=== PATIENT | female | born 1965 | race Caucasian/White ===

== ENCOUNTER → 2016-06-10 | Outpatient (CLI) | payer OTHER | LOC: RAD 08:47 | DX: R19.5 Other fecal abnormalities (principal); R10.11 Right upper quadrant pain | CPT/HCPCS: 74249 ==

== ENCOUNTER → 2016-07-09 | Outpatient (CLI) | payer OTHER ==
[2016-07-09 10:13] LABS: ABSOLUTE BASOPHILS # (AUTO) 0.1 10^3/uL (0.0-0.2); ABSOLUTE EOSINOPHILS # (AUTO) 0.1 10^3/uL (0.0-0.6); ABSOLUTE LYMPHOCYTES (AUTO) 2.8 10^3/uL (0.5-4.7); ABSOLUTE MONOCYTES (AUTO) 0.5 10^3/uL (0.1-1.4); ABSOLUTE NEUT (AUTO) 5.5 10^3/uL (1.7-8.2); BASOPHILS % (AUTO) 0.7 % (0-2); HEMOGLOBIN 14.4 g/dL (12.0-15.5); HGB HCT DIFFERENCE 0.2; LYMPHOCYTES % (AUTO) 31.4 % (13-45); MEAN CORPUSCULAR HEMOGLOBIN 29.2 pg (27.0-33.4); MEAN CORPUSCULAR HGB CONC 33.6 g/dL (32.0-36.0); MEAN CORPUSCULAR VOLUME 87 fl (80-97); MONOCYTES % (AUTO) 5.7 % (3-13); RED BLOOD COUNT 4.94 10^6/uL (3.72-5.28); RED CELL DISTRIBUTION WIDTH 13.3 % (11.5-14.0); SEGMENTED NEUTROPHILS % (AUTO) 61.2 % (42-78)
[2016-07-09 10:36] LABS: ALANINE AMINOTRANSFERASE 29 U/L (9-52); ALKALINE PHOSPHATASE 91 U/L (38-126); ANION GAP 10 (5-19); ASPARTATE AMINO TRANSFERASE 17 U/L (14-36); BILIRUBIN,TOTAL 0.6 mg/dL (0.2-1.3); BLOOD UREA NITROGEN 10 mg/dL (7-20); CALCIUM 9.9 mg/dL (8.4-10.2); CARBON DIOXIDE 31 mmol/L (22-30); CHLORIDE 99 mmol/L (98-107); CHOLESTEROL 153.79 mg/dL (0-200); Direct HDL 52 mg/dL (>40); GLUCOSE 222 mg/dL (75-110); POTASSIUM 4.9 mmol/L (3.6-5.0); SODIUM 139.9 mmol/L (137-145); TOTAL PROTEIN 7.2 g/dL (6.3-8.2); TRIGLYCERIDES 152 mg/dL (<150)
[2016-07-09 11:03] LABS: DIRECT LDL 89 mg/dL (<100)
[2016-07-09 11:13] LABS: VLDL CHOLESTEROL 30.4 mg/dL (10-31)
== END ==
LOC: CCC 08:28
DX: E11.9 Type 2 diabetes mellitus without complications (principal); I10 Essential (primary) hypertension; E03.9 Hypothyroidism, unspecified
CPT/HCPCS: 36415; 80053; 80061; 83036; 84443; 85025

== ENCOUNTER 2016-12-31 16:55 | Emergency (ER) | payer OTHER ==
--- NOTE | 2016-12-31 18:24 | ER Document Report ---
HPI - HPI Patient complains to provider of: right low back pain, numbness right leg Onset: Other - months Pain Level: 4 Context: 51 yo female wants to know why she has numbness to right leg for months associated with right low back pain . Worse today when leg gave out and fell backwards onto her bed. No saddle anesthesia. uses walker since right knee replacement and incomplete physical therpay 2014. No new symptoms today. PCP: [facility] [place]. Thinks it got worse today because she walked 1/2 [place] to the [place] yesterday. Associated Symptoms: None Exacerbated by: Walking Relieved by: Denies Similar symptoms previously: Yes Recently seen / treated by doctor: No - ROS ROS below otherwise negative: Yes Systems Reviewed and Negative: Yes All other systems reviewed and negative - REPRODUCTIVE Reproductive: DENIES: : - DERM Skin Color: Normal, [place] Past Medical History - General Information source: Patient - Social History Smoking Status: Unknown if Ever Smoked Frequency of alcohol use: None Drug Abuse: None Lives with: Family Family History: Arthritis, CAD, CVA, DM, Hyperlipidemia, Hypertension, Malignancy, Thyroid Disfunction - Past Medical History Cardiac Medical History: Reports: Hx Coronary Artery Disease, Hx Hypercholesterolemia, Hx Hypertension Pulmonary Medical History: Reports: Hx Asthma - no meds/inhalers, last ED visit > 5 years ago, Hx Bronchitis, Hx Pneumonia - denies hospitalization Endocrine Medical History: Reports: Hx Diabetes Mellitus Type 2, Hx Hypothyroidism GI Medical History: Reports: Hx Gastroesophageal Reflux Disease Musculoskeltal Medical History: Reports Hx Arthritis, Reports Hx Fibromyalgia - Dx'ed approx 15 years ago, Reports Hx Musculoskeletal Deformity Psychiatric Medical History: Reports: Hx Anxiety, Hx Attention Deficit Hyperactivity Disorder, Hx Depression Traumatic Medical History: Reports: Hx Fractures Past Surgical History: Reports: Hx Section - x 2, Hx Cholecystectomy - open , Hx Oral Surgery, Hx Orthopedic Surgery - right knee replacement, Hx Tubal Ligation - Immunizations Immunizations up to date: Yes Hx Diphtheria, Pertussis, Tetanus Vaccination: Yes Vertical Provider Document - CONSTITUTIONAL Agree With Documented VS: Yes Exam Limitations: No Limitations General Appearance: No Apparent Distress Notes: gait stable with walker, externally rotated right foot (chornic per pt) - INFECTION CONTROL TRAVEL OUTSIDE OF THE [place] IN LAST 30 DAYS: No - HEENT HEENT: Normocephalic - NECK Neck: Supple - RESPIRATORY Respiratory: Breath Sounds Normal, No Respiratory Distress O2 Sat by Pulse Oximetry: 96 - CARDIOVASCULAR Cardiovascular: Regular Rate, Regular Rhythm - GI/ABDOMEN Gastrointestinal: Abdomen Soft, Abdomen Non-Tender Notes: able to feel normal touch to perineum - MUSCULOSKELETAL/EXTREMETIES Musculoskeletal/Extremeties: MAEW, FROM, Tender - right SI joint area into right buttocks - NEURO Level of Consciousness: Awake, Alert, Appropriate Motor/Sensory: No Motor Deficit, No Sensory Deficit - DERM Integumentary: Warm, Dry, No Rash Course - Re-evaluation Re-evalutation: 12/31/16 19:51 L spine is negative, degenerative changes to lower thoracic back. 12/31/16 19:54 - Vital Signs Vital signs: Temp Pulse Resp BP Pulse Ox 98.3 F 108 H 16 117/78 96 12/31/16 17:04 12/31/16 17:04 12/31/16 17:04 12/31/16 17:04 12/31/16 17:04 Discharge - Discharge Clinical Impression: Chronic right sacroiliac joint pain Sciatica Qualifiers: Laterality: right Qualified Code(s): M54.31 - Sciatica, right side Condition: Good Disposition: HOME, SELF-CARE Instructions: Anti-Inflammatory Medication ([facility]), Acetaminophen, Low Back Pain ([facility]), Sciatica ([facility]) Additional Instructions: you may need further imaging of the lumbar spine see [facility] for follow up call and schedule appointment with orthopedic doctor to er if worse Please complete the patient satisfaction survey if you get one, and return it.. If you do not receive a survey, then you can go to the [facility] website, [email or web address] and place your comments about your very good care. Thank you very much. It was a pleasure being your medical provider today. Prescriptions: Ibuprofen [Motrin 800 mg Tablet] 800 mg PO Q8HP PRN #30 tablet PRN Reason: Referrals: KEREN SAHNI MD [ACTIVE STAFF] - Follow up as needed
--- NOTE | 2016-12-31 19:31 | RADIOLOGY REPORT (SQ) ---
EXAM DESCRIPTION: L SPINE WHOLE COMPLETED DATE/TIME: 12/31/2016 7:18 pm REASON FOR STUDY: pain right SI joint, parathesia COMPARISON: None. NUMBER OF VIEWS: Five views including obliques. TECHNIQUE: AP, lateral, oblique, and sacral radiographic images acquired of the lumbar spine. LIMITATIONS: None. FINDINGS: MINERALIZATION: Normal. SEGMENTATION: Normal. No transitional anatomy. ALIGNMENT: Normal. VERTEBRAE: Maintained height. No fracture or worrisome bone lesion. DISCS: Preserved height. No significant osteophytes or end plate irregularity. POSTERIOR ELEMENTS: Pedicles and facets are intact. No pars defect or posterior arch defects. HARDWARE: None in the spine. PARASPINAL SOFT TISSUES: Normal. PELVIS: Intact as visualized. No fractures or worrisome bone lesions. SI joints intact. OTHER: Degenerative changes are identified in the lower thoracic spine. IMPRESSION: No significant findings in the lumbar spine. Degenerative changes are identified in the lower thoracic spine. TECHNICAL DOCUMENTATION: JOB ID: [id number] [employer]- All Rights Reserved
[2016-12-31] MEDS ORDERED: IBUPROFEN 800 MG TABLET PO ONE (19:50)
[2016-12-31] MEDS ORDERED: ACETAMINOPHEN 325 MG TABLET PO ONE (19:50)
[2016-12-31 20:20] VITALS: BP 126/79
== END 2016-12-31 20:18 | disposition home or self-care (01) ==
LOC: ER 16:55
DX: M53.3 Sacrococcygeal disorders, not elsewhere classified (principal); G89.29 Other chronic pain; M47.9 Spondylosis, unspecified; M54.41 Lumbago with sciatica, right side; R20.0 Anesthesia of skin; I25.10 Atherosclerotic heart disease of native coronary artery without angina pectoris; I10 Essential (primary) hypertension; J45.909 Unspecified asthma, uncomplicated; E11.9 Type 2 diabetes mellitus without complications; Z96.651 Presence of right artificial knee joint
CPT/HCPCS: 72110; 99283

== ENCOUNTER → 2017-01-14 | Outpatient (CLI) | payer OTHER ==
[2017-01-14 10:48] LABS: ANION GAP 9 (5-19); BLOOD UREA NITROGEN 18 mg/dL (7-20); CALCIUM 9.6 mg/dL (8.4-10.2); CARBON DIOXIDE 28 mmol/L (22-30); CHLORIDE 100 mmol/L (98-107); CREATININE RESULT 0.51 mg/dL (0.52-1.25); GLUCOSE 279 mg/dL (75-110); POTASSIUM 4.5 mmol/L (3.6-5.0)
== END ==
LOC: CCC 09:34
DX: E11.8 Type 2 diabetes mellitus with unspecified complications (principal)
CPT/HCPCS: 36415; 80048; 83036

== ENCOUNTER → 2017-01-22 | Outpatient (CLI) | payer OTHER ==
--- NOTE | 2017-01-22 10:32 | RADIOLOGY REPORT (SQ) ---
EXAM DESCRIPTION: MRI LUMBAR SPINE WITHOUT COMPLETED DATE/TIME: 01/22/2017 9:16 am REASON FOR STUDY: LOW BACK PAIN/RADICULOPATHY, LUMBAR REGION M54.5 LOW BACK PAIN M54.16 RADICULOPA THY, LUMBAR REGION COMPARISON: CT abdomen and pelvis 01/05/2015 Lumbar spine plain films 12/31/2016 TECHNIQUE: Sagittal and Axial imaging includes T1, T2, STIR and gradient echo sequences. Coronal T2/ HASTE imaging. LIMITATIONS: None. FINDINGS: VISUALIZED UPPER ABDOMEN: Limited evaluation. No acute or suspicious findings suggested. SEGMENTATION: No transitional anatomy. The lowest well-developed disc space is labeled L5-S1. ALIGNMENT: Anatomic. VERTEBRAE: Intact. BONE MARROW: Normal. No marrow replacement or reactive changes. DISC SIGNAL: Decreased T2 weighted intervertebral disc signal with disc space loss of height at T12-L 1 POSTERIOR ELEMENTS: Generally intact. No pars defect evident. HARDWARE: None in the spine. CORD AND CONUS: Normal in size and signal intensity. Conus at the mid L1 level. SOFT TISSUES: No aortic aneurysm seen. No bulky retroperitoneal adenopathy or mass. No paraspinal mas s or fluid. T10-11: At the upper edge of the field of view. No posterior disc bulging. Moderate bilateral face t and ligament hypertrophy. Mild bilateral foraminal narrowing. T11-12: No posterior disc bulging. Moderate bilateral facet hypertrophy. No central or foraminal e ncroachment. T12-L1: Broad diffuse posterior disc bulge and bony spurring left greater than right partly effaces the leftward ventral thecal sac, and abuts the leftward ventral cord without cord normal intrinsic co rd signal. Mild bilateral facet hypertrophy and ligamentum flavum thickening. No right foraminal na rrowing. Mild proximal left foraminal narrowing without exiting T12 nerve root impingement. L1-L2: No significant spinal stenosis or exit foraminal stenosis. Very mild bilateral facet hypertro phy. L2-L3: No significant spinal stenosis or exit foraminal stenosis. Mild bilateral facet hypertrophy. L3-L4: No significant spinal stenosis or exit foraminal stenosis. Mild bilateral facet hypertrophy. L4-L5: No significant spinal stenosis or exit foraminal stenosis. Mild posterior disc bulging, mild bilateral facet hypertrophy. L5-S1: No significant spinal stenosis or exit foraminal stenosis. Moderate bilateral facet hypertrop hy SACRUM: Visualized upper sacrum intact. OTHER: No other significant findings. IMPRESSION: Broad diffuse posterior disc bulge and bony spurring left greater than right at T12-L1, mild central canal narrowing, mild left foraminal narrowing. TECHNICAL DOCUMENTATION: JOB ID: [id number] [employer]- All Rights Reserved
== END ==
LOC: RAD 08:15
DX: M54.5 Low back pain (principal); M54.16 Radiculopathy, lumbar region
CPT/HCPCS: 72148

== ENCOUNTER 2017-06-07 09:57 | Emergency (ER) | payer SELFPAY ==
--- NOTE | 2017-06-07 10:34 | ER Document Report ---
ED Medical Screen (RME) - General Chief Complaint: Fall Injury Stated Complaint: FALL/BODY PAIN Time Seen by Provider: 06/07/17 10:22 Mode of Arrival: Wheelchair Information source: Patient Notes: Patient presents complaining of dizziness since yesterday that she describes as feeling off balance. Patient states that this dizziness is caused her to fall 3 times in her house today and once outside on the ice. Patient states that she does have a headache and does report hitting her head one time when she fell to the occipital area. Patient complains of right-sided headache pain. Patient additionally complains of bilateral knee pain and left shoulder pain and left ankle pain. Patient additionally reports cough for the past week that her family attributes to her continued smoking. Patient denies any chest pain or fever. TRAVEL OUTSIDE OF THE [place] IN LAST 30 DAYS: No - Related Data Allergies/Adverse Reactions: No Known Allergies Allergy (Verified 06/07/17 09:58) Past Medical History - Past Medical History Cardiac Medical History: Reports: Hx Coronary Artery Disease, Hx Hypercholesterolemia, Hx Hypertension Denies: Hx Atrial Fibrillation, Hx Congestive Heart Failure, Hx Heart Attack , Hx Peripheral Vascular Disease, Hx Pulmonary Embolism, Hx Heart Murmur Pulmonary Medical History: Reports: Hx Asthma - no meds/inhalers, last ED visit > 5 years ago, Hx Bronchitis, Hx Pneumonia - denies hospitalization Denies: Hx COPD, Hx Respiratory Failure, Hx Sleep Apnea, Hx Tuberculosis Endocrine Medical History: Reports: Hx Diabetes Mellitus Type 2, Hx Hypothyroidism. Denies: Hx Graves' Disease, Hx Hyperthyroidism Renal/ Medical History: Denies: Hx End Stage Renal Disease, Hx Kidney Stones, Hx Peritoneal Dialysis Malignancy Medical History: Denies: Hx Lung Cancer GI Medical History: Reports: Hx Gastroesophageal Reflux Disease. Denies: Hx Crohn's Disease, Hx Hiatal Hernia, Hx Irritable Bowel, Hx Liver Failure, Hx Pancreatitis, Hx Ulcer Musculoskeltal Medical History: Reports Hx Arthritis, Reports Hx Fibromyalgia - Dx'ed approx 15 years ago, Denies Hx Muscular Dystrophy, Reports Hx Musculoskeletal Deformity Skin Medical History: Denies Hx MRSA Psychiatric Medical History: Reports: Hx Anxiety, Hx Attention Deficit Hyperactivity Disorder, Hx Depression Denies: Hx Bipolar Disorder, Hx Post Traumatic Stress Disorder, Hx Schizophrenia Traumatic Medical History: Reports: Hx Fractures Past Surgical History: Reports: Hx Section - x 2, Hx Cholecystectomy - open 1980's, Hx Oral Surgery, Hx Orthopedic Surgery - right knee replacement, Hx Tubal Ligation. Denies: Hx Appendectomy, Hx Bowel Surgery, Hx Colostomy, Hx Coronary Artery Bypass Graft, Hx Gastric Bypass Surgery, Hx Herniorrhaphy, Hx Hysterectomy, Hx Mastectomy, Hx Pacemaker, Hx Tonsillectomy - Immunizations Immunizations up to date: Yes Hx Diphtheria, Pertussis, Tetanus Vaccination: Yes Physical Exam - Vital signs Vitals: Temp Pulse Resp BP Pulse Ox 97.9 F 98 14 147/72 H 97 06/07/17 10:06 06/07/17 10:06/07/17 10:06/07/17 10:06/07/17 10:06 - Respiratory Respiratory status: No respiratory distress Breath sounds: Nonproductive cough, Rhonchi Chest palpation: Normal - Cardiovascular Rhythm: Regular Heart sounds: S1 appreciated, S2 appreciated Course - Vital Signs Vital signs: Temp Pulse Resp BP Pulse Ox 97.9 F 98 14 147/72 H 97 06/07/17 10:06/07/17 10:06/07/17 10:06/07/17 10:06/07/17 10:06
--- NOTE | 2017-06-07 11:06 | RADIOLOGY REPORT (SQ) ---
EXAM DESCRIPTION: CT HEAD WITHOUT COMPLETED DATE/TIME: 06/07/2017 10:54 am REASON FOR STUDY: dizzy, fall, MAXWELL COMPARISON: 03/12/2015 TECHNIQUE: Axial images acquired through the brain without intravenous contrast. Images reviewed wi th bone, brain and subdural windows. Images stored on PACS. All CT scanners at this facility use dose modulation, iterative reconstruction, and/or weight based d osing when appropriate to reduce radiation dose to as low as reasonably achievable (ALARA). [facility]: Dose Right [facility]: CareDose [facility]: Dose Right [facility]: Teradose 4D [facility]: EasyLink RADIATION DOSE: CT Rad equipment meets quality standard of care and radiation dose reduction techniq ues were employed. CTDIvol: 64.6 mGy. DLP: 1292 mGy-cm. mGy. LIMITATIONS: None. FINDINGS: VENTRICLES: Normal size and contour. CEREBRUM: No masses. No hemorrhage. No midline shift. No evidence for acute infarction. Normal gra y/white matter differentiation. Stable chronic lacunar infarct right basal ganglia. No additional a reas of low density in the white matter. CEREBELLUM: No masses. No hemorrhage. No alteration of density. No evidence for acute infarction. EXTRAAXIAL SPACES: No fluid collections. No masses. ORBITS AND GLOBE: No intra- or extraconal masses. Normal contour of globe without masses. CALVARIUM: No fracture. PARANASAL SINUSES: Stable tiny mucous retention cyst left maxillary sinus. No fluid or additional mu cosal thickening. SOFT TISSUES: No mass or hematoma. OTHER: No other significant finding. IMPRESSION: NO ACUTE INTRACRANIAL PROCESS. NO SIGNIFICANT CHANGE PRIOR STUDY. EVIDENCE OF ACUTE STROKE: NO. COMMENT: Quality ID # [id number]: Final reports with documentation of one or more dose reduction techniques (e.g., Automated exposure control, adjustment of the mA and/or kV according to patient size, use of iterative reconstruction technique) TECHNICAL DOCUMENTATION: JOB ID: [id number] [employer]- All Rights Reserved
--- NOTE | 2017-06-07 11:48 | RADIOLOGY REPORT (SQ) ---
EXAM DESCRIPTION: CHEST PA/LAT COMPLETED DATE/TIME: 06/07/2017 11:35 am REASON FOR STUDY: cough, dizzy COMPARISON: 03/27/2016 EXAM PARAMETERS: NUMBER OF VIEWS: two views TECHNIQUE: Digital Frontal and Lateral radiographic views of the chest acquired. RADIATION DOSE: NA LIMITATIONS: none FINDINGS: LUNGS AND PLEURA: Subtle patchy left lower lobe airspace disease. Lungs and pleural space s otherwise clear. MEDIASTINUM AND HILAR STRUCTURES: No masses or contour abnormalities. HEART AND VASCULAR STRUCTURES: Heart normal size. No evidence for failure. BONES: No acute findings. HARDWARE: None in the chest. OTHER: No other significant finding. IMPRESSION: SUBTLE PATCHY LEFT LOWER LOBE AIRSPACE DISEASE MAY REPRESENT DEVELOPING PNEUMONIA. CARLOS MMEND FOLLOWUP RADIOGRAPHS 4 TO 6 WEEKS TO ENSURE RESOLUTION. TECHNICAL DOCUMENTATION: JOB ID: [id number] [employer]- All Rights Reserved
--- NOTE | 2017-06-07 11:49 | RADIOLOGY REPORT (SQ) ---
EXAM DESCRIPTION: KNEE BILATERAL 1-2 VIEWS COMPLETED DATE/TIME: 06/07/2017 11:35 am REASON FOR STUDY: fall COMPARISON: None. NUMBER OF VIEWS: Two views. TECHNIQUE: AP, lateral, and both oblique radiographic images acquired of the right and left knee. LIMITATIONS: None. FINDINGS: MINERALIZATION: Normal. BONES: No acute fracture or dislocation. No worrisome bone lesions. JOINT: Status post total knee arthroplasty on the right without hardware complication. Mild to moder ate tricompartmental osteoarthritis on the left. SOFT TISSUES: Vascular calcifications. No soft tissue swelling. No radio-opaque foreign body. OTHER: No other significant finding. IMPRESSION: NO FRACTURE OR HARDWARE COMPLICATION IDENTIFIED. CHRONIC CHANGES ABOVE. TECHNICAL DOCUMENTATION: JOB ID: [id number] [employer]- All Rights Reserved
--- NOTE | 2017-06-07 11:49 | RADIOLOGY REPORT (SQ) ---
EXAM DESCRIPTION: SHOULDER LEFT 2 OR MORE VIEWS COMPLETED DATE/TIME: 06/07/2017 11:35 am REASON FOR STUDY: fall COMPARISON: None. NUMBER OF VIEWS: Three views. TECHNIQUE: Internal rotation, external rotation, and Y view images acquired of the left shoulder. LIMITATIONS: None. FINDINGS: MINERALIZATION: Normal. BONES: No acute fracture or dislocation. No worrisome bone lesions. JOINTS: No dislocation. VISUALIZED LUNGS AND RIBS: No pneumothorax. No rib fracture. SOFT TISSUES: No radiopaque foreign body. OTHER: No other significant finding. IMPRESSION: NO RADIOGRAPHIC EVIDENCE OF ACUTE INJURY. TECHNICAL DOCUMENTATION: JOB ID: [id number] [employer]- All Rights Reserved
--- NOTE | 2017-06-07 11:50 | RADIOLOGY REPORT (SQ) ---
EXAM DESCRIPTION: ANKLE LEFT COMPLETE COMPLETED DATE/TIME: 06/07/2017 11:35 am REASON FOR STUDY: fall COMPARISON: 02/17/2018 NUMBER OF VIEWS: Three views. TECHNIQUE: AP, lateral, and oblique radiographic images acquired of the left ankle. LIMITATIONS: None. FINDINGS: MINERALIZATION: Normal. BONES: No acute fracture or dislocation. No worrisome bone lesions. Chronic posttraumatic change me dial ankle. Calcaneal spurring. JOINTS: Osteoarthritis without significant joint effusion. SOFT TISSUES: Vascular calcification No soft tissue swelling. No foreign body. OTHER: No other significant finding. IMPRESSION: NO RADIOGRAPHIC EVIDENCE OF ACUTE INJURY. CHRONIC CHANGES ABOVE. TECHNICAL DOCUMENTATION: JOB ID: [id number] [email or web address]- All Rights Reserved
--- NOTE | 2017-06-07 11:55 | EKG REPORT ---
SEVERITY:- NORMAL ECG - SINUS RHYTHM : Confirmed by: Kyle Vallejo 07-Jun-2017 11:53:34
[2017-06-07 12:11] LABS: AMORPHOUS SEDIMENT,URINE TRACE /HPF; APPEARANCE,URINE CLEAR; BILIRUBIN,URINE NEGATIVE (NEGATIVE); COLOR,URINE YELLOW; GLUCOSE, URINE >=500 mg/dL (NEGATIVE); KETONES,URINE NEGATIVE (NEGATIVE); LEUKOCYTE ESTERASE,URINE NEGATIVE (NEGATIVE); NITRITE,URINE NEGATIVE (NEGATIVE); PROTEIN,URINE 100 mg/dL (NEGATIVE); URINE SPECIFIC GRAVITY 1.005; UROBILINOGEN,URINE NEGATIVE mg/dL (<2.0)
[2017-06-07 12:13] LABS: ABSOLUTE BASOPHILS # (AUTO) 0.1 10^3/uL (0.0-0.2); ABSOLUTE EOSINOPHILS # (AUTO) 0.1 10^3/uL (0.0-0.6); ABSOLUTE LYMPHOCYTES (AUTO) 1.8 10^3/uL (0.5-4.7); ABSOLUTE MONOCYTES (AUTO) 0.8 10^3/uL (0.1-1.4); ABSOLUTE NEUT (AUTO) 11.4 10^3/uL (1.7-8.2); BASOPHILS % (AUTO) 0.6 % (0-2); EOSINOPHILS % (AUTO) 0.5 % (0-6); HEMATOCRIT 39.8 % (36.0-47.0); HEMOGLOBIN 13.3 g/dL (12.0-15.5); LYMPHOCYTES % (AUTO) 12.7 % (13-45); MEAN CORPUSCULAR HEMOGLOBIN 28.3 pg (27.0-33.4); MEAN CORPUSCULAR HGB CONC 33.4 g/dL (32.0-36.0); MEAN CORPUSCULAR VOLUME 85 fl (80-97); MONOCYTES % (AUTO) 5.5 % (3-13); PLATELET COUNT 425 10^3/uL (150-450); RED CELL DISTRIBUTION WIDTH 14.4 % (11.5-14.0); SEGMENTED NEUTROPHILS % (AUTO) 80.7 % (42-78); TOTAL CELLS COUNTED % (AUTO) 100 %; WHITE BLOOD COUNT 14.1 10^3/uL (4.0-10.5)
[2017-06-07 12:31] LABS: ALANINE AMINOTRANSFERASE 27 U/L (9-52); ALBUMIN 4.4 g/dL (3.5-5.0); ALKALINE PHOSPHATASE 104 U/L (38-126); ANION GAP 11 (5-19); ASPARTATE AMINO TRANSFERASE 27 U/L (14-36); BILIRUBIN,DIRECT 0.2 mg/dL (0.0-0.4); BILIRUBIN,TOTAL 0.4 mg/dL (0.2-1.3); BLOOD UREA NITROGEN 11 mg/dL (7-20); CALCIUM 9.8 mg/dL (8.4-10.2); CARBON DIOXIDE 29 mmol/L (22-30); CHLORIDE 98 mmol/L (98-107); GLUCOSE 213 mg/dL (75-110); POTASSIUM 4.2 mmol/L (3.6-5.0); SODIUM 137.5 mmol/L (137-145); TOTAL PROTEIN 6.9 g/dL (6.3-8.2)
[2017-06-07] MEDS ORDERED: AZITHROMYCIN 250 MG TABLET PO ONE (12:46)
--- NOTE | 2017-06-07 12:46 | ER Document Report ---
ED General - General Chief Complaint: Fall Injury Stated Complaint: FALL/BODY PAIN Time Seen by Provider: 06/07/17 10:22 Mode of Arrival: Wheelchair Information source: Patient Notes: 52-year-old female complains of multiple falls. Patient notes she falls often, patient has been seen here and at other clinics extensively for these falls. Patient currently denies any weakness or numbness notes she feels lightheaded dizzy. Patient does admit that she been coughing for approximately 2 weeks with greenish cobb sputum. TRAVEL OUTSIDE OF THE [place] IN LAST 30 DAYS: No - HPI Onset: Just prior to arrival Onset/Duration: Sudden Quality of pain: Achy Severity: Mild Pain Level: 1 Associated symptoms: Body/muscle aches, Productive cough, Other - Dizziness Exacerbated by: Movement, Coughing Relieved by: Denies Similar symptoms previously: Yes Recently seen / treated by doctor: Yes - Related Data Allergies/Adverse Reactions: No Known Allergies Allergy (Verified 06/07/17 09:58) Past Medical History - General Information source: Patient - Social History Smoking Status: Current Every Day Smoker Cigarette use (# per day): Yes Chew tobacco use (# tins/day): No Smoking Education Provided: No Frequency of alcohol use: None Drug Abuse: None Family History: Arthritis, CAD, CVA, DM, Hyperlipidemia, Hypertension, Malignancy, Thyroid Disfunction Patient has suicidal ideation: No Patient has homicidal ideation: No - Past Medical History Cardiac Medical History: Reports: Hx Coronary Artery Disease, Hx Hypercholesterolemia, Hx Hypertension Denies: Hx Atrial Fibrillation, Hx Congestive Heart Failure, Hx Heart Attack , Hx Peripheral Vascular Disease, Hx Pulmonary Embolism, Hx Heart Murmur Pulmonary Medical History: Reports: Hx Asthma - no meds/inhalers, last ED visit > 5 years ago, Hx Bronchitis, Hx Pneumonia - denies hospitalization Denies: Hx COPD, Hx Respiratory Failure, Hx Sleep Apnea, Hx Tuberculosis Endocrine Medical History: Reports: Hx Diabetes Mellitus Type 2, Hx Hypothyroidism. Denies: Hx Graves' Disease, Hx Hyperthyroidism Renal/ Medical History: Denies: Hx End Stage Renal Disease, Hx Kidney Stones, Hx Peritoneal Dialysis Malignancy Medical History: Denies: Hx Lung Cancer GI Medical History: Reports: Hx Gastroesophageal Reflux Disease. Denies: Hx Crohn's Disease, Hx Hiatal Hernia, Hx Irritable Bowel, Hx Liver Failure, Hx Pancreatitis, Hx Ulcer Musculoskeltal Medical History: Reports Hx Arthritis, Reports Hx Fibromyalgia - Dx'ed approx 15 years ago, Denies Hx Muscular Dystrophy, Reports Hx Musculoskeletal Deformity Skin Medical History: Denies Hx MRSA Psychiatric Medical History: Reports: Hx Anxiety, Hx Attention Deficit Hyperactivity Disorder, Hx Depression Denies: Hx Bipolar Disorder, Hx Post Traumatic Stress Disorder, Hx Schizophrenia Traumatic Medical History: Reports: Hx Fractures Past Surgical History: Reports: Hx Section - x 2, Hx Cholecystectomy - open , Hx Oral Surgery, Hx Orthopedic Surgery - right knee replacement, Hx Tubal Ligation. Denies: Hx Appendectomy, Hx Bowel Surgery, Hx Colostomy, Hx Coronary Artery Bypass Graft, Hx Gastric Bypass Surgery, Hx Herniorrhaphy, Hx Hysterectomy, Hx Mastectomy, Hx Pacemaker, Hx Tonsillectomy - Immunizations Immunizations up to date: Yes Hx Diphtheria, Pertussis, Tetanus Vaccination: Yes Review of Systems - Review of Systems Notes: REVIEW OF SYSTEMS: CONSTITUTIONAL : Denies fever, chills, or sweats. Denies recent illness. EENT: Denies eye, ear, throat, or mouth pain or symptoms. Denies nasal or sinus congestion or discharge. Denies throat, tongue, or mouth swelling or difficulty swallowing. CARDIOVASCULAR: Denies chest pain. Denies palpitations or racing or irregular heart beat. Denies ankle edema. RESPIRATORY: Admits to productive cough GASTROINTESTINAL: Denies abdominal pain or distention. Denies nausea, vomiting , or diarrhea. Denies blood in vomitus, stools, or per rectum. Denies black, tarry stools. Denies constipation. GENITOURINARY: Denies difficulty urinating, painful urination, burning, frequency, blood in urine, or discharge. FEMALE GENITOURINARY: Denies vaginal bleeding, heavy or abnormal periods, irregular periods. Denies vaginal discharge or odor. MUSCULOSKELETAL: Admits to shoulder ankle pain SKIN: Denies rash, lesions or sores. HEMATOLOGIC : Denies easy bruising or bleeding. LYMPHATIC: Denies swollen, enlarged glands. NEUROLOGICAL: Admits to dizziness PSYCHIATRIC: Denies anxiety or stress. Denies depression, suicidal ideation, or homicidal ideation. ALL OTHER SYSTEMS REVIEWED AND NEGATIVE. PHYSICAL EXAMINATION: GENERAL: Well-appearing, well-nourished and in no acute distress. HEAD: Atraumatic, normocephalic. EYES: Pupils equal round and reactive to light, extraocular movements intact, conjunctiva are normal. ENT: Nares patent, oropharynx clear without exudates. Moist mucous membranes. NECK: Normal range of motion, supple without lymphadenopathy LUNGS: Breath sounds clear to auscultation bilaterally and equal. No wheezes rales or rhonchi. HEART: Regular rate and rhythm without murmurs ABDOMEN: Soft, nontender, nondistended abdomen. No guarding, no rebound. No masses appreciated. Female : deferred Musculoskeletal: Normal range of motion, no pitting or edema. No cyanosis. NEUROLOGICAL: Cranial nerves grossly intact. Normal speech, normal gait. Normal sensory, motor exams patient is able to ambulate with no difficulty generalized pain noted PSYCH: Normal mood, normal affect. SKIN: Warm, Dry, normal turgor, no rashes or lesions noted. Dictation was performed using [employer] voice recognition software Physical Exam - Vital signs Vitals: Temp Pulse Resp BP Pulse Ox 97.9 F 98 14 147/72 H 97 06/07/17 10:06 06/07/17 10:06 06/07/17 10:06 06/07/17 10:06 06/07/17 10:06 Course - Re-evaluation Re-evalutation: 06/07/17 16:25 52-year-old female presents with complaints of dizziness falls, patient's presentation is extremely benign. Extensive workup has been performed by the mid-level who initially saw the patient, possible pneumonia as noted on x-ray, given productivity of cough I will treat her for this which may be the cause of her dizziness however it is noted that the patient does fall quite often and that the same complaints of ankle pain body aches After performing a Medical Screening Examination, I estimate there is LOW risk for ACUTE CORONARY SYNDROME, PULMONARY EMBOLI, RESPIRATORY FAILURE, SEPSIS OR MENINGITIS, thus I consider the discharge disposition reasonable. I have reevaluated this patient multiple times and no significant life threatening changes are noted. The patient and I have discussed the diagnosis and risks, and we agree with discharging home with close follow-up. We also discussed returning to the Emergency Department immediately if new or worsening symptoms occur. We have discussed the symptoms which are most concerning (e.g., changing or worsening pain, trouble swallowing or breathing, neck stiffness, fever) that necessitate immediate return. - Vital Signs Vital signs: Temp Pulse Resp BP Pulse Ox 97.9 F 98 19 138/74 H 100 06/07/17 10:06 06/07/17 10:06 06/07/17 13:01 06/07/17 13:01 06/07/17 13:01 - Laboratory Result Diagrams: 06/07/17 11:45 06/07/17 11:45 Laboratory results interpreted by me: 06/07/17 06/07/17 06/07/17 11:45 11:45 11:45 WBC 14.1 H RDW 14.4 H Seg Neutrophils % 80.7 H Lymphocytes % 12.7 L Absolute Neutrophils 11.4 H Glucose 213 H Urine Protein 100 H Urine Glucose (UA) >=500 H Urine Blood SMALL H - Diagnostic Test Radiology reviewed: Image reviewed, Reports reviewed - Pneumonia Discharge - Discharge Clinical Impression: Dizziness Pneumonia Qualifiers: Pneumonia type: due to unspecified organism Laterality: left Lung location: lower lobe of lung Qualified Code(s): J18.1 - Lobar pneumonia, unspecified organism Ankle pain Qualifiers: Chronicity: acute Laterality: left Qualified Code(s): M25.572 - Pain in left ankle and joints of left foot Condition: Stable Disposition: HOME, SELF-CARE Instructions: Dizziness ([facility]), Pneumonia ([facility]) Additional Instructions: Follow up with your physician tomorrow for further care or return to the ED IMMEDIATELY if symptoms worsen or new concerns occur. If you cannot afford to follow up with your primary care physician a list of low cost clinics have been provided at the end of your discharge papers as well. Prescriptions: Azithromycin 250 mg PO ASDIR PRN #6 tablet PRN Reason:
[2017-06-07] MEDS ORDERED: NAPROXEN 250 MG TABLET PO ONE (12:47)
[2017-06-07 13:08] VITALS: BP 138/74
== END 2017-06-07 13:18 | disposition home or self-care (01) ==
LOC: ER 09:57
DX: J18.1 Lobar pneumonia, unspecified organism (principal); M25.572 Pain in left ankle and joints of left foot; M79.1 Myalgia; W19.XXXA Unspecified fall, initial encounter; F17.210 Nicotine dependence, cigarettes, uncomplicated; Z91.81 History of falling; I25.10 Atherosclerotic heart disease of native coronary artery without angina pectoris; E78.00 Pure hypercholesterolemia, unspecified; I10 Essential (primary) hypertension; E11.9 Type 2 diabetes mellitus without complications; E03.9 Hypothyroidism, unspecified; Z90.49 Acquired absence of other specified parts of digestive tract; Z96.651 Presence of right artificial knee joint; Z98.51 Tubal ligation status
CPT/HCPCS: 36415; 70450; 71046; 80053; 81001; 85025; 93005; 93010; 99284

== ENCOUNTER → 2017-06-24 | Outpatient (CLI) | payer SELFPAY ==
--- NOTE | 2017-06-24 11:05 | RADIOLOGY REPORT (SQ) ---
EXAM DESCRIPTION: TOE RIGHT COMPLETED DATE/TIME: 06/24/2017 10:29 am REASON FOR STUDY: S90.931A UNSP SUPERFICIAL INJURY OF RIGHT GREAT TOE, INIT ENCNTR COMPARISON: None. NUMBER OF VIEWS: Three views right forefoot. LIMITATIONS: None. FINDINGS: Pronounced osteopenia. Transverse nondisplaced fracture through the distal aspect of the proximal phalanx great toe. No other gross fracture. No dislocation or subluxation. OTHER: No other significant finding. IMPRESSION: Osteopenic. Nondisplaced proximal phalanx great toe fracture. TECHNICAL DOCUMENTATION: JOB ID: [id number]
== END ==
LOC: RAD 10:03
PROVIDERS: ATTEND Family Medicine
DX: S92.514A Nondisplaced fracture of proximal phalanx of right lesser toe(s), initial encounter for closed fracture (principal); X58.XXXA Exposure to other specified factors, initial encounter

== ENCOUNTER 2017-11-26 12:24 | Emergency (ER) | payer SELFPAY ==
[2017-11-26 12:31] VITALS: BP 153/96
[2017-11-26] MEDS ORDERED: KETOROLAC TROMETHAMINE 60 MG/2 ML SDV IM ONE (13:25)
--- NOTE | 2017-11-26 13:30 | ER Document Report ---
HPI - HPI Pain Level: 4 Context: Patient is a 52-year-old female complaining of pain to her upper back and shoulders, and a cough 3 days. Patient denies any paresthesias, fever, trauma Associated Symptoms: None Exacerbated by: Movement Relieved by: Denies Similar symptoms previously: Yes Recently seen / treated by doctor: No - RESPIRATORY Respiratory: REPORTS: Coughing - REPRODUCTIVE Reproductive: DENIES: : - MUSCULOSKELETAL Musculoskeletal: REPORTS: Extremity pain Past Medical History - General Information source: Patient - Social History Smoking Status: Current Every Day Smoker Chew tobacco use (# tins/day): No Frequency of alcohol use: None Drug Abuse: None Lives with: Family Family History: Arthritis, CAD, CVA, DM, Hyperlipidemia, Hypertension, Malignancy, Thyroid Disfunction Patient has suicidal ideation: No Patient has homicidal ideation: No - Past Medical History Cardiac Medical History: Reports: Hx Coronary Artery Disease, Hx Hypercholesterolemia, Hx Hypertension Denies: Hx Atrial Fibrillation, Hx Congestive Heart Failure, Hx Heart Attack , Hx Peripheral Vascular Disease, Hx Pulmonary Embolism, Hx Heart Murmur Pulmonary Medical History: Reports: Hx Asthma - no meds/inhalers, last ED visit > 5 years ago, Hx Bronchitis, Hx Pneumonia - denies hospitalization Denies: Hx COPD, Hx Respiratory Failure, Hx Sleep Apnea, Hx Tuberculosis Endocrine Medical History: Reports: Hx Diabetes Mellitus Type 2, Hx Hypothyroidism. Denies: Hx Graves' Disease, Hx Hyperthyroidism Renal/ Medical History: Denies: Hx End Stage Renal Disease, Hx Kidney Stones, Hx Peritoneal Dialysis Malignancy Medical History: Denies: Hx Lung Cancer GI Medical History: Reports: Hx Gastroesophageal Reflux Disease. Denies: Hx Crohn's Disease, Hx Hiatal Hernia, Hx Irritable Bowel, Hx Liver Failure, Hx Pancreatitis, Hx Ulcer Musculoskeltal Medical History: Reports Hx Arthritis, Reports Hx Fibromyalgia - Dx'ed approx 15 years ago, Denies Hx Muscular Dystrophy, Reports Hx Musculoskeletal Deformity Skin Medical History: Denies Hx MRSA Psychiatric Medical History: Reports: Hx Anxiety, Hx Attention Deficit Hyperactivity Disorder, Hx Depression Denies: Hx Bipolar Disorder, Hx Post Traumatic Stress Disorder, Hx Schizophrenia Traumatic Medical History: Reports: Hx Fractures Past Surgical History: Reports: Hx Section - x 2, Hx Cholecystectomy - open , Hx Oral Surgery, Hx Orthopedic Surgery - right knee replacement, Hx Tubal Ligation. Denies: Hx Appendectomy, Hx Bowel Surgery, Hx Colostomy, Hx Coronary Artery Bypass Graft, Hx Gastric Bypass Surgery, Hx Herniorrhaphy, Hx Hysterectomy, Hx Mastectomy, Hx Pacemaker, Hx Tonsillectomy - Immunizations Immunizations up to date: Yes Hx Diphtheria, Pertussis, Tetanus Vaccination: Yes Vertical Provider Document - CONSTITUTIONAL Agree With Documented VS: Yes Exam Limitations: No Limitations - INFECTION CONTROL TRAVEL OUTSIDE OF THE [place] IN LAST 30 DAYS: No - HEENT HEENT: Atraumatic, PERRLA - NECK Neck: Normal Inspection, Supple - RESPIRATORY Respiratory: Breath Sounds Normal, No Respiratory Distress - CARDIOVASCULAR Cardiovascular: Regular Rate, Regular Rhythm - BACK Back: Abnormal Inspection - Positive thoracic paraspinal and trapezius tenderness. No vertebral tenderness - NEURO Level of Consciousness: Awake, Alert, Appropriate Course - Vital Signs Vital signs: Temp Pulse Resp BP Pulse Ox 98.6 F 97 20 153/96 H 97 11/26/17 12:29 11/26/17 12:29 11/26/17 12:29 11/26/17 12:29 11/26/17 12:29 Discharge - Discharge Clinical Impression: Upper back pain, Cough Condition: Stable Disposition: HOME, SELF-CARE Instructions: Toradol Injection ([facility]), Tessalon Perles ([facility]), Ibuprofen ( General) ([facility]), Muscle Relaxers ([facility]) Additional Instructions: Please take medications as prescribed Follow-up with your primary care if symptoms persist Prescriptions: Benzonatate [Tessalon Perles 100 mg Capsule] 200 mg PO Q8HP PRN #40 capsule PRN Reason: Ibuprofen [Motrin 800 Mg Tablet] 800 mg PO Q6H #20 tablet Methocarbamol [Robaxin 500 Mg Tablet] 1,000 mg PO Q6 #30 tablet
== END 2017-11-26 13:44 | disposition home or self-care (01) ==
LOC: ER 12:24
DX: M54.6 Pain in thoracic spine (principal); R05 Cough; M25.511 Pain in right shoulder; M25.512 Pain in left shoulder; F17.200 Nicotine dependence, unspecified, uncomplicated; I25.10 Atherosclerotic heart disease of native coronary artery without angina pectoris; I10 Essential (primary) hypertension; J45.909 Unspecified asthma, uncomplicated; E11.9 Type 2 diabetes mellitus without complications
CPT/HCPCS: 99283; J1885

== ENCOUNTER 2017-12-26 15:40 | Emergency (ER) | payer SELFPAY ==
[2017-12-26] MEDS ORDERED: ASPIRIN 81 MG TABLET, CHEWABLE PO ONE (16:17)
[2017-12-26] MEDS ORDERED: IPRATROPIUM/ALBUTEROL 0.5-2.5 MG/3 ML AMPUL NEB ONE (16:18)
--- NOTE | 2017-12-26 16:19 | ER Document Report ---
ED Medical Screen (RME) - General Chief Complaint: Chest Pain Stated Complaint: CHEST PAINS/ BACK PAINS Time Seen by Provider: 12/26/17 16:05 Notes: 51 years old female presents today with 2 day history of left chest wall pain and left-sided headache, wheezing and coughing on and off. Denies any left arm numbness nausea vomiting palpitation or diaphoresis. TRAVEL OUTSIDE OF THE [place] IN LAST 30 DAYS: No - Related Data Allergies/Adverse Reactions: No Known Allergies Allergy (Verified 11/26/17 12:25) Past Medical History - Past Medical History Cardiac Medical History: Reports: Hx Coronary Artery Disease, Hx Hypercholesterolemia, Hx Hypertension Denies: Hx Atrial Fibrillation, Hx Congestive Heart Failure, Hx Heart Attack , Hx Peripheral Vascular Disease, Hx Pulmonary Embolism, Hx Heart Murmur Pulmonary Medical History: Reports: Hx Asthma - no meds/inhalers, last ED visit > 5 years ago, Hx Bronchitis, Hx Pneumonia - denies hospitalization Denies: Hx COPD, Hx Respiratory Failure, Hx Sleep Apnea, Hx Tuberculosis Endocrine Medical History: Reports: Hx Diabetes Mellitus Type 2, Hx Hypothyroidism. Denies: Hx Graves' Disease, Hx Hyperthyroidism Renal/ Medical History: Denies: Hx End Stage Renal Disease, Hx Kidney Stones, Hx Peritoneal Dialysis Malignancy Medical History: Denies: Hx Lung Cancer GI Medical History: Reports: Hx Gastroesophageal Reflux Disease. Denies: Hx Crohn's Disease, Hx Hiatal Hernia, Hx Irritable Bowel, Hx Liver Failure, Hx Pancreatitis, Hx Ulcer Musculoskeltal Medical History: Reports Hx Arthritis, Reports Hx Fibromyalgia - Dx'ed approx 15 years ago, Denies Hx Muscular Dystrophy, Reports Hx Musculoskeletal Deformity Skin Medical History: Denies Hx MRSA Psychiatric Medical History: Reports: Hx Anxiety, Hx Attention Deficit Hyperactivity Disorder, Hx Depression Denies: Hx Bipolar Disorder, Hx Post Traumatic Stress Disorder, Hx Schizophrenia Traumatic Medical History: Reports: Hx Fractures Past Surgical History: Reports: Hx Section - x 2, Hx Cholecystectomy - open , Hx Oral Surgery, Hx Orthopedic Surgery - right knee replacement, Hx Tubal Ligation. Denies: Hx Appendectomy, Hx Bowel Surgery, Hx Colostomy, Hx Coronary Artery Bypass Graft, Hx Gastric Bypass Surgery, Hx Herniorrhaphy, Hx Hysterectomy, Hx Mastectomy, Hx Pacemaker, Hx Tonsillectomy - Immunizations Immunizations up to date: Yes Hx Diphtheria, Pertussis, Tetanus Vaccination: Yes Physical Exam - Vital signs Vitals: Temp Pulse Resp BP Pulse Ox 99.3 F 98 18 145/80 H 96 12/26/17 15:44 12/26/17 15:44 12/26/17 15:44 12/26/17 15:44 12/26/17 15:44 Course - Vital Signs Vital signs: Temp Pulse Resp BP Pulse Ox 99.3 F 98 18 145/80 H 96 12/26/17 15:44 12/26/17 15:44 12/26/17 15:44 12/26/17 15:44 12/26/17 15:44
[2017-12-26 16:36] LABS: ABSOLUTE BASOPHILS # (AUTO) 0.1 10^3/uL (0.0-0.2); ABSOLUTE EOSINOPHILS # (AUTO) 0.1 10^3/uL (0.0-0.6); ABSOLUTE LYMPHOCYTES (AUTO) 2.5 10^3/uL (0.5-4.7); ABSOLUTE MONOCYTES (AUTO) 0.6 10^3/uL (0.1-1.4); ABSOLUTE NEUT (AUTO) 7.3 10^3/uL (1.7-8.2); BASOPHILS % (AUTO) 1.1 % (0-2); EOSINOPHILS % (AUTO) 0.6 % (0-6); HEMATOCRIT 42.5 % (36.0-47.0); HEMOGLOBIN 14.3 g/dL (12.0-15.5); LYMPHOCYTES % (AUTO) 23.5 % (13-45); MEAN CORPUSCULAR HEMOGLOBIN 28.3 pg (27.0-33.4); MEAN CORPUSCULAR HGB CONC 33.7 g/dL (32.0-36.0); MEAN CORPUSCULAR VOLUME 84 fl (80-97); PLATELET COUNT 457 10^3/uL (150-450); RED BLOOD COUNT 5.06 10^6/uL (3.72-5.28); RED CELL DISTRIBUTION WIDTH 14.6 % (11.5-14.0); SEGMENTED NEUTROPHILS % (AUTO) 68.8 % (42-78); TOTAL CELLS COUNTED % (AUTO) 100 %; WHITE BLOOD COUNT 10.7 10^3/uL (4.0-10.5)
[2017-12-26 16:48] LABS: ALANINE AMINOTRANSFERASE 35 U/L (9-52); ALBUMIN 4.1 g/dL (3.5-5.0); ALKALINE PHOSPHATASE 85 U/L (38-126); ANION GAP 12 (5-19); ASPARTATE AMINO TRANSFERASE 18 U/L (14-36); BILIRUBIN,DIRECT 0.3 mg/dL (0.0-0.4); BILIRUBIN,TOTAL 0.5 mg/dL (0.2-1.3); BLOOD UREA NITROGEN 14 mg/dL (7-20); CALCIUM 9.5 mg/dL (8.4-10.2); CARBON DIOXIDE 25 mmol/L (22-30); CHLORIDE 100 mmol/L (98-107); CREATINE KINASE 95 U/L (30-135); GLUCOSE 309 mg/dL (75-110); POTASSIUM 5.3 mmol/L (3.6-5.0); SODIUM 137.4 mmol/L (137-145)
[2017-12-26 16:59] LABS: CREATINE KINASE MB 2.53 ng/mL (<4.55)
[2017-12-26 17:16] LABS: TROPONIN I < 0.012 ng/mL
--- NOTE | 2017-12-26 17:17 | RADIOLOGY REPORT (SQ) ---
EXAM DESCRIPTION: CHEST SINGLE VIEW COMPLETED DATE/TIME: 12/26/2017 5:06 pm REASON FOR STUDY: Chest pain COMPARISON: 06/07/2017 EXAM PARAMETERS: NUMBER OF VIEWS: One view. TECHNIQUE: Single frontal radiographic view of the chest acquired. RADIATION DOSE: NA LIMITATIONS: None. FINDINGS: LUNGS AND PLEURA: No opacities, masses or pneumothorax. No pleural effusion. MEDIASTINUM AND HILAR STRUCTURES: No masses. Contour normal. HEART AND VASCULAR STRUCTURES: Heart normal in size. Normal vasculature. BONES: No acute findings. HARDWARE: None in the chest. OTHER: No other significant finding. IMPRESSION: NO ACUTE RADIOGRAPHIC FINDING IN THE CHEST. TECHNICAL DOCUMENTATION: JOB ID: [id number] [employer]- All Rights Reserved Reading location - IP/workstation name: [email or web address]
--- NOTE | 2017-12-26 17:52 | ER Document Report ---
ED General - General Chief Complaint: Chest Pain Stated Complaint: CHEST PAINS/ BACK PAINS Time Seen by Provider: 12/26/17 16:05 Mode of Arrival: Ambulatory Information source: Patient Notes: 52-year-old female presents with complaints of shortness of breath. Patient notes that over the past few days has been having difficulty breathing patient patient notes this occurs when she goes outside in the heat where his 90 and humid. Patient notes when she goes inside in the air conditioning her symptoms resolved. She denies any fevers or chills denies any nausea TRAVEL OUTSIDE OF THE [place] IN LAST 30 DAYS: No - Related Data Allergies/Adverse Reactions: No Known Allergies Allergy (Verified 11/26/17 12:25) Past Medical History - Social History Smoking Status: Current Every Day Smoker Cigarette use (# per day): No Chew tobacco use (# tins/day): No Smoking Education Provided: No Family History: Arthritis, CAD, CVA, DM, Hyperlipidemia, Hypertension, Malignancy, Thyroid Disfunction Patient has suicidal ideation: No Patient has homicidal ideation: No - Past Medical History Cardiac Medical History: Reports: Hx Coronary Artery Disease, Hx Hypercholesterolemia, Hx Hypertension Denies: Hx Atrial Fibrillation, Hx Congestive Heart Failure, Hx Heart Attack , Hx Peripheral Vascular Disease, Hx Pulmonary Embolism, Hx Heart Murmur Pulmonary Medical History: Reports: Hx Asthma - no meds/inhalers, last ED visit > 5 years ago, Hx Bronchitis, Hx Pneumonia - denies hospitalization Denies: Hx COPD, Hx Respiratory Failure, Hx Sleep Apnea, Hx Tuberculosis Endocrine Medical History: Reports: Hx Diabetes Mellitus Type 2, Hx Hypothyroidism. Denies: Hx Graves' Disease, Hx Hyperthyroidism Renal/ Medical History: Denies: Hx End Stage Renal Disease, Hx Kidney Stones, Hx Peritoneal Dialysis Malignancy Medical History: Denies: Hx Lung Cancer GI Medical History: Reports: Hx Gastroesophageal Reflux Disease. Denies: Hx Crohn's Disease, Hx Hiatal Hernia, Hx Irritable Bowel, Hx Liver Failure, Hx Pancreatitis, Hx Ulcer Musculoskeletal Medical History: Reports Hx Arthritis, Reports Hx Fibromyalgia - Dx'ed approx 15 years ago, Denies Hx Muscular Dystrophy, Reports Hx Musculoskeletal Deformity Skin Medical History: Denies Hx MRSA Psychiatric Medical History: Reports: Hx Anxiety, Hx Attention Deficit Hyperactivity Disorder, Hx Depression Denies: Hx Bipolar Disorder, Hx Post Traumatic Stress Disorder, Hx Schizophrenia Traumatic Medical History: Reports: Hx Fractures Past Surgical History: Reports: Hx Section - x 2, Hx Cholecystectomy - open , Hx Oral Surgery, Hx Orthopedic Surgery - right knee replacement, Hx Tubal Ligation. Denies: Hx Appendectomy, Hx Bowel Surgery, Hx Colostomy, Hx Coronary Artery Bypass Graft, Hx Gastric Bypass Surgery, Hx Herniorrhaphy, Hx Hysterectomy, Hx Mastectomy, Hx Pacemaker, Hx Tonsillectomy - Immunizations Immunizations up to date: Yes Hx Diphtheria, Pertussis, Tetanus Vaccination: Yes Review of Systems - Review of Systems Notes: REVIEW OF SYSTEMS: CONSTITUTIONAL : Denies fever, chills, or sweats. Denies recent illness. EENT: Denies eye, ear, throat, or mouth pain or symptoms. Denies nasal or sinus congestion or discharge. Denies throat, tongue, or mouth swelling or difficulty swallowing. CARDIOVASCULAR: Denies chest pain. Denies palpitations or racing or irregular heart beat. Denies ankle edema. RESPIRATORY: Admits to shortness of breath when she is outdoors GASTROINTESTINAL: Denies abdominal pain or distention. Denies nausea, vomiting , or diarrhea. Denies blood in vomitus, stools, or per rectum. Denies black, tarry stools. Denies constipation. GENITOURINARY: Denies difficulty urinating, painful urination, burning, frequency, blood in urine, or discharge. FEMALE GENITOURINARY: Denies vaginal bleeding, heavy or abnormal periods, irregular periods. Denies vaginal discharge or odor. MUSCULOSKELETAL: Denies back or neck pain or stiffness. Denies joint pain or swelling. SKIN: Denies rash, lesions or sores. HEMATOLOGIC : Denies easy bruising or bleeding. LYMPHATIC: Denies swollen, enlarged glands. NEUROLOGICAL: Denies confusion or altered mental status. Denies passing out or loss of consciousness. Denies dizziness or lightheadedness. Denies headache. Denies weakness or paralysis or loss of use of either side. Denies problems with gait or speech. Denies sensory loss, numbness, or tingling. Denies seizures. PSYCHIATRIC: Denies anxiety or stress. Denies depression, suicidal ideation, or homicidal ideation. ALL OTHER SYSTEMS REVIEWED AND NEGATIVE. PHYSICAL EXAMINATION: GENERAL: Well-appearing, well-nourished and in no acute distress. HEAD: Atraumatic, normocephalic. EYES: Pupils equal round and reactive to light, extraocular movements intact, conjunctiva are normal. ENT: Nares patent, oropharynx clear without exudates. Moist mucous membranes. NECK: Normal range of motion, supple without lymphadenopathy LUNGS: Breath sounds clear to auscultation bilaterally and equal. No wheezes rales or rhonchi. HEART: Regular rate and rhythm without murmurs ABDOMEN: Soft, nontender, nondistended abdomen. No guarding, no rebound. No masses appreciated. Female : deferred Musculoskeletal: Normal range of motion, no pitting or edema. No cyanosis. NEUROLOGICAL: Cranial nerves grossly intact. Normal speech, normal gait. Normal sensory, motor exams PSYCH: Normal mood, normal affect. SKIN: Warm, Dry, normal turgor, no rashes or lesions noted. Dictation was performed using [employer] voice recognition software Physical Exam - Vital signs Vitals: Temp Pulse Resp BP Pulse Ox 99.3 F 98 18 145/80 H 96 12/26/17 15:44 12/26/17 15:44 12/26/17 15:44 12/26/17 15:44 12/26/17 15:44 Course - Re-evaluation Re-evalutation: 12/26/17 17:51 When I walked into the room patient was sleeping O2 sats were 92%, however when I had her sit up her O2 sats went up to 90% with no difficulty, the patient's workup is quite benign, it appears his symptoms occur only when she is outdoors in the heat, it is quite humid outdoors. Patient otherwise looks well is in no distress and is stable for discharge After performing a Medical Screening Examination, I estimate there is LOW risk for ACUTE CORONARY SYNDROME, PULMONARY EMBOLI, RESPIRATORY FAILURE, SEPSIS OR MENINGITIS, thus I consider the discharge disposition reasonable. I have reevaluated this patient multiple times and no significant life threatening changes are noted. The patient and I have discussed the diagnosis and risks, and we agree with discharging home with close follow-up. We also discussed returning to the Emergency Department immediately if new or worsening symptoms occur. We have discussed the symptoms which are most concerning (e.g., changing or worsening pain, trouble swallowing or breathing, neck stiffness, fever) that necessitate immediate return. - Vital Signs Vital signs: Temp Pulse Resp BP Pulse Ox 99.3 F 98 18 145/80 H 96 12/26/17 15:44 12/26/17 15:44 12/26/17 15:44 12/26/17 15:44 12/26/17 15:44 - Laboratory Result Diagrams: 12/26/17 16:10 12/26/17 16:10 Laboratory results interpreted by me: 12/26/17 12/26/17 16:10 16:10 WBC 10.7 H RDW 14.6 H Plt Count 457 H Potassium 5.3 H Glucose 309 H - Diagnostic Test Radiology reviewed: Image reviewed, Reports reviewed Discharge - Discharge Clinical Impression: Shortness of breath Condition: Stable Disposition: HOME, SELF-CARE Instructions: Dyspnea, Nonspecific ([facility]) Additional Instructions: Follow up with your physician tomorrow for further care or return to the ED IMMEDIATELY if symptoms worsen or new concerns occur. If you cannot afford to follow up with your primary care physician a list of low cost clinics have been provided at the end of your discharge papers as well.
[2017-12-26 18:08] VITALS: BP 126/69
--- NOTE | 2017-12-26 22:31 | EKG REPORT ---
SEVERITY:- NORMAL ECG - SINUS RHYTHM : Confirmed by: Margaret Apple MD 26-Dec-2017 22:29:29
== END 2017-12-26 18:07 | disposition home or self-care (01) ==
LOC: ER 15:40
DX: J45.909 Unspecified asthma, uncomplicated (principal); R06.02 Shortness of breath; F17.200 Nicotine dependence, unspecified, uncomplicated; I25.10 Atherosclerotic heart disease of native coronary artery without angina pectoris; I10 Essential (primary) hypertension; E11.9 Type 2 diabetes mellitus without complications
CPT/HCPCS: 93005; 94640; 99285; 36415; 82553; 82550; 85025; 80053; 84484; 71045; 93010; J7620

== ENCOUNTER 2018-03-13 10:28 | Emergency (ER) | payer SELFPAY ==
--- NOTE | 2018-03-13 11:05 | ER Document Report ---
ED Medical Screen (RME) - General Chief Complaint: Breathing Difficulty Stated Complaint: BACK PAIN Time Seen by Provider: 03/13/18 11:02 Mode of Arrival: Wheelchair Information source: Patient TRAVEL OUTSIDE OF THE [place] IN LAST 30 DAYS: No - HPI Patient complains to provider of: sob Onset: Yesterday - pt. with c/o difficulty breathing and SOB kavita. when lying flat. Continues to smoke. Also some upper back pain without trauma - Related Data Allergies/Adverse Reactions: No Known Allergies Allergy (Verified 03/13/18 10:32) Past Medical History - Social History Frequency of alcohol use: None Drug Abuse: None - Past Medical History Cardiac Medical History: Reports: Hx Coronary Artery Disease, Hx Hypercholesterolemia, Hx Hypertension Denies: Hx Atrial Fibrillation, Hx Congestive Heart Failure, Hx Heart Attack , Hx Peripheral Vascular Disease, Hx Pulmonary Embolism, Hx Heart Murmur Pulmonary Medical History: Reports: Hx Asthma - no meds/inhalers, last ED visit > 5 years ago, Hx Bronchitis, Hx Pneumonia - denies hospitalization Denies: Hx COPD, Hx Respiratory Failure, Hx Sleep Apnea, Hx Tuberculosis Endocrine Medical History: Reports: Hx Diabetes Mellitus Type 2, Hx Hypothyroidism. Denies: Hx Graves' Disease, Hx Hyperthyroidism Renal/ Medical History: Denies: Hx End Stage Renal Disease, Hx Kidney Stones, Hx Peritoneal Dialysis Malignancy Medical History: Denies: Hx Lung Cancer GI Medical History: Reports: Hx Gastroesophageal Reflux Disease. Denies: Hx Crohn's Disease, Hx Hiatal Hernia, Hx Irritable Bowel, Hx Liver Failure, Hx Pancreatitis, Hx Ulcer Musculoskeltal Medical History: Reports Hx Arthritis, Reports Hx Fibromyalgia - Dx'ed approx 15 years ago, Denies Hx Muscular Dystrophy, Reports Hx Musculoskeletal Deformity Skin Medical History: Denies Hx MRSA Psychiatric Medical History: Reports: Hx Anxiety, Hx Attention Deficit Hyperactivity Disorder, Hx Depression Denies: Hx Bipolar Disorder, Hx Post Traumatic Stress Disorder, Hx Schizophrenia Traumatic Medical History: Reports: Hx Fractures Past Surgical History: Reports: Hx Section - x 2, Hx Cholecystectomy - open , Hx Oral Surgery, Hx Orthopedic Surgery - right knee replacement, Hx Tubal Ligation. Denies: Hx Appendectomy, Hx Bowel Surgery, Hx Colostomy, Hx Coronary Artery Bypass Graft, Hx Gastric Bypass Surgery, Hx Herniorrhaphy, Hx Hysterectomy, Hx Mastectomy, Hx Pacemaker, Hx Tonsillectomy - Immunizations Immunizations up to date: Yes Hx Diphtheria, Pertussis, Tetanus Vaccination: Yes Physical Exam - Vital signs Vitals: Temp Pulse Resp BP Pulse Ox 98.5 F 97 20 135/93 H 96 03/13/18 10:38 03/13/18 10:38 03/13/18 10:38 03/13/18 10:38 03/13/18 10:38 Course - Vital Signs Vital signs: Temp Pulse Resp BP Pulse Ox 98.5 F 97 20 135/93 H 96 03/13/18 10:38 03/13/18 10:38 03/13/18 10:38 03/13/18 10:38 03/13/18 10:38
[2018-03-13 11:49] LABS: ABSOLUTE BASOPHILS # (AUTO) 0.1 10^3/uL (0.0-0.2); ABSOLUTE EOSINOPHILS # (AUTO) 0.1 10^3/uL (0.0-0.6); ABSOLUTE MONOCYTES (AUTO) 0.5 10^3/uL (0.1-1.4); ABSOLUTE NEUT (AUTO) 7.7 10^3/uL (1.7-8.2); BASOPHILS % (AUTO) 0.5 % (0-2); EOSINOPHILS % (AUTO) 1.3 % (0-6); HEMATOCRIT 40.8 % (36.0-47.0); HEMOGLOBIN 13.7 g/dL (12.0-15.5); LYMPHOCYTES % (AUTO) 19.4 % (13-45); MEAN CORPUSCULAR HEMOGLOBIN 28.1 pg (27.0-33.4); MEAN CORPUSCULAR HGB CONC 33.6 g/dL (32.0-36.0); MEAN CORPUSCULAR VOLUME 84 fl (80-97); MONOCYTES % (AUTO) 5.2 % (3-13); PLATELET COUNT 456 10^3/uL (150-450); RED BLOOD COUNT 4.88 10^6/uL (3.72-5.28); RED CELL DISTRIBUTION WIDTH 14.7 % (11.5-14.0); SEGMENTED NEUTROPHILS % (AUTO) 73.6 % (42-78); TOTAL CELLS COUNTED % (AUTO) 100 %; WHITE BLOOD COUNT 10.5 10^3/uL (4.0-10.5)
[2018-03-13 11:49] LABS: APPEARANCE,URINE SLIGHTLY-CLOUDY; BILIRUBIN,URINE NEGATIVE (NEGATIVE); COLOR,URINE YELLOW; GLUCOSE, URINE 150 mg/dL (NEGATIVE); KETONES,URINE NEGATIVE (NEGATIVE); LEUKOCYTE ESTERASE,URINE NEGATIVE (NEGATIVE); NITRITE,URINE NEGATIVE (NEGATIVE); PROTEIN,URINE 30 mg/dL (NEGATIVE); URINE SPECIFIC GRAVITY 1.014; UROBILINOGEN,URINE NEGATIVE mg/dL (<2.0)
[2018-03-13 12:10] LABS: ALANINE AMINOTRANSFERASE 41 U/L (9-52); ALBUMIN 4.3 g/dL (3.5-5.0); ALKALINE PHOSPHATASE 82 U/L (38-126); ANION GAP 12 (5-19); ASPARTATE AMINO TRANSFERASE 28 U/L (14-36); BILIRUBIN,DIRECT 0.1 mg/dL (0.0-0.4); BILIRUBIN,TOTAL 0.3 mg/dL (0.2-1.3); BLOOD UREA NITROGEN 10 mg/dL (7-20); CALCIUM 10.2 mg/dL (8.4-10.2); CARBON DIOXIDE 29 mmol/L (22-30); CHLORIDE 98 mmol/L (98-107); CREATINE KINASE 91 U/L (30-135); GLUCOSE 237 mg/dL (75-110); POTASSIUM 4.6 mmol/L (3.6-5.0); SODIUM 139.3 mmol/L (137-145); TOTAL PROTEIN 7.3 g/dL (6.3-8.2)
[2018-03-13 12:22] LABS: CREATINE KINASE MB 2.59 ng/mL (<4.55)
[2018-03-13 12:23] LABS: TROPONIN I < 0.012 ng/mL
--- NOTE | 2018-03-13 12:25 | RADIOLOGY REPORT (SQ) ---
EXAM DESCRIPTION: CHEST 2 VIEWS COMPLETED DATE/TIME: 03/13/2018 12:14 pm REASON FOR STUDY: sob COMPARISON: 06/07/2017 EXAM PARAMETERS: NUMBER OF VIEWS: two views TECHNIQUE: Digital Frontal and Lateral radiographic views of the chest acquired. RADIATION DOSE: NA LIMITATIONS: none FINDINGS: LUNGS AND PLEURA: No opacities, masses or pneumothorax. No pleural effusion. MEDIASTINUM AND HILAR STRUCTURES: No masses or contour abnormalities. HEART AND VASCULAR STRUCTURES: Heart normal size. No evidence for failure. BONES: No acute findings. HARDWARE: None in the chest. OTHER: No other significant finding. IMPRESSION: NO ACUTE RADIOGRAPHIC FINDING IN THE CHEST. TECHNICAL DOCUMENTATION: JOB ID: [id number] [employer]- All Rights Reserved Reading location - IP/workstation name: [email or web address]
[2018-03-13] MEDS ORDERED: HYDROCODONE/ACETAMINOPHEN 5-325 MG TABLET PO ONE (15:27)
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
[2018-03-13 16:33] VITALS: BP 151/79
--- NOTE | 2018-03-13 22:39 | EKG REPORT ---
SEVERITY:- BORDERLINE ECG - SINUS RHYTHM PROBABLE LEFT ATRIAL ABNORMALITY : Confirmed by: Margaret Apple MD 13-Mar-2018 22:39:01
== END 2018-03-13 16:45 | disposition home or self-care (01) ==
LOC: ER 10:28
DX: M54.6 Pain in thoracic spine (principal); R51 Headache; R09.81 Nasal congestion; E11.42 Type 2 diabetes mellitus with diabetic polyneuropathy; F17.200 Nicotine dependence, unspecified, uncomplicated; I25.10 Atherosclerotic heart disease of native coronary artery without angina pectoris; I10 Essential (primary) hypertension; J45.909 Unspecified asthma, uncomplicated; R06.02 Shortness of breath
CPT/HCPCS: 36415; 71046; 80053; 81001; 82550; 82553; 83880; 84484; 85025; 85379; 93005; 93010; 99285

== ENCOUNTER 2018-05-09 14:59 | Emergency (ER) | payer SELFPAY ==
[2018-05-09] MEDS ORDERED: NORMAL SALINE 1000 ML 1,000 ML IV ONE (16:08)
--- NOTE | 2018-05-09 16:11 | ER Document Report ---
ED Medical Screen (RME) - General Chief Complaint: High Blood Sugar Stated Complaint: BLOOD SUGAR ISSUES Time Seen by Provider: 05/09/18 16:07 Notes: Patient with a history of diabetes, type II, is reportedly not eating, is lethargic, dropping things, not drinking sufficient water, and disoriented. She does not have supplies to check her sugars at home. She denies nausea or vomiting or diarrhea. Denies chest pain. Does have some shortness of breath. Also having urinary frequency. No fevers. PMH: No history of stroke. Diabetes, smokes about a pack a day. TRAVEL OUTSIDE OF THE [place] IN LAST 30 DAYS: No - Related Data Allergies/Adverse Reactions: No Known Allergies Allergy (Verified 05/09/18 15:00) Past Medical History - Social History Chew tobacco use (# tins/day): No Frequency of alcohol use: None Drug Abuse: None - Past Medical History Cardiac Medical History: Reports: Hx Coronary Artery Disease, Hx Hypercholesterolemia, Hx Hypertension Denies: Hx Atrial Fibrillation, Hx Congestive Heart Failure, Hx Heart Attack , Hx Peripheral Vascular Disease, Hx Pulmonary Embolism, Hx Heart Murmur Pulmonary Medical History: Reports: Hx Asthma - no meds/inhalers, last ED visit > 5 years ago, Hx Bronchitis, Hx Pneumonia - denies hospitalization Denies: Hx COPD, Hx Respiratory Failure, Hx Sleep Apnea, Hx Tuberculosis Endocrine Medical History: Reports: Hx Diabetes Mellitus Type 2, Hx Hypothyroidism. Denies: Hx Graves' Disease, Hx Hyperthyroidism Renal/ Medical History: Denies: Hx End Stage Renal Disease, Hx Kidney Stones, Hx Peritoneal Dialysis Malignancy Medical History: Denies: Hx Lung Cancer GI Medical History: Reports: Hx Gastroesophageal Reflux Disease. Denies: Hx Crohn's Disease, Hx Hiatal Hernia, Hx Irritable Bowel, Hx Liver Failure, Hx Pancreatitis, Hx Ulcer Musculoskeltal Medical History: Reports Hx Arthritis, Reports Hx Fibromyalgia - Dx'ed approx 15 years ago, Denies Hx Muscular Dystrophy, Reports Hx Musculoskeletal Deformity Skin Medical History: Denies Hx MRSA Psychiatric Medical History: Reports: Hx Anxiety, Hx Attention Deficit Hyperactivity Disorder, Hx Depression Denies: Hx Bipolar Disorder, Hx Post Traumatic Stress Disorder, Hx Schizophrenia Traumatic Medical History: Reports: Hx Fractures Past Surgical History: Reports: Hx Section - x 2, Hx Cholecystectomy - open , Hx Oral Surgery, Hx Orthopedic Surgery - right knee replacement, Hx Tubal Ligation. Denies: Hx Appendectomy, Hx Bowel Surgery, Hx Colostomy, Hx Coronary Artery Bypass Graft, Hx Gastric Bypass Surgery, Hx Herniorrhaphy, Hx Hysterectomy, Hx Mastectomy, Hx Pacemaker, Hx Tonsillectomy - Immunizations Immunizations up to date: Yes Hx Diphtheria, Pertussis, Tetanus Vaccination: Yes Physical Exam - Vital signs Vitals: Temp Pulse Resp BP Pulse Ox 99.1 F 83 20 128/75 H 94 05/09/18 15:23 05/09/18 15:23 05/09/18 15:23 05/09/18 15:23 05/09/18 15:23 Course - Vital Signs Vital signs: Temp Pulse Resp BP Pulse Ox 99.1 F 83 20 128/75 H 94 05/09/18 15:23 05/09/18 15:23 05/09/18 15:23 05/09/18 15:23 05/09/18 15:23
[2018-05-09 16:43] LABS: ABSOLUTE BASOPHILS # (AUTO) 0.1 10^3/uL (0.0-0.2); ABSOLUTE EOSINOPHILS # (AUTO) 0.1 10^3/uL (0.0-0.6); ABSOLUTE LYMPHOCYTES (AUTO) 2.1 10^3/uL (0.5-4.7); ABSOLUTE MONOCYTES (AUTO) 0.6 10^3/uL (0.1-1.4); ABSOLUTE NEUT (AUTO) 10.3 10^3/uL (1.7-8.2); EOSINOPHILS % (AUTO) 0.6 % (0-6); HEMATOCRIT 40.7 % (36.0-47.0); HEMOGLOBIN 13.8 g/dL (12.0-15.5); LYMPHOCYTES % (AUTO) 16.1 % (13-45); MEAN CORPUSCULAR HEMOGLOBIN 28.4 pg (27.0-33.4); MEAN CORPUSCULAR HGB CONC 33.8 g/dL (32.0-36.0); MEAN CORPUSCULAR VOLUME 84 fl (80-97); MONOCYTES % (AUTO) 4.6 % (3-13); PLATELET COUNT 456 10^3/uL (150-450); RED BLOOD COUNT 4.85 10^6/uL (3.72-5.28); RED CELL DISTRIBUTION WIDTH 15.3 % (11.5-14.0); SEGMENTED NEUTROPHILS % (AUTO) 77.7 % (42-78); TOTAL CELLS COUNTED % (AUTO) 100 %; WHITE BLOOD COUNT 13.2 10^3/uL (4.0-10.5)
[2018-05-09 16:53] LABS: ALANINE AMINOTRANSFERASE 23 U/L (9-52); ALBUMIN 4.3 g/dL (3.5-5.0); ALKALINE PHOSPHATASE 80 U/L (38-126); ANION GAP 15 (5-19); ASPARTATE AMINO TRANSFERASE 22 U/L (14-36); BILIRUBIN,DIRECT 0.2 mg/dL (0.0-0.4); BILIRUBIN,TOTAL 0.4 mg/dL (0.2-1.3); BLOOD UREA NITROGEN 17 mg/dL (7-20); CALCIUM 9.8 mg/dL (8.4-10.2); CARBON DIOXIDE 24 mmol/L (22-30); CHLORIDE 103 mmol/L (98-107); GLUCOSE 244 mg/dL (75-110); POTASSIUM 3.8 mmol/L (3.6-5.0); SODIUM 141.7 mmol/L (137-145); TOTAL PROTEIN 7.2 g/dL (6.3-8.2)
[2018-05-09 17:01] LABS: APPEARANCE,URINE CLOUDY; BILIRUBIN,URINE NEGATIVE (NEGATIVE); COLOR,URINE YELLOW; GLUCOSE, URINE >=500 mg/dL (NEGATIVE); KETONES,URINE TRACE mg/dL (NEGATIVE); LEUKOCYTE ESTERASE,URINE NEGATIVE (NEGATIVE); NITRITE,URINE NEGATIVE (NEGATIVE); PROTEIN,URINE 100 mg/dL (NEGATIVE); URINE SPECIFIC GRAVITY 1.026
--- NOTE | 2018-05-09 17:17 | RADIOLOGY REPORT (SQ) ---
EXAM DESCRIPTION: CHEST 2 VIEWS COMPLETED DATE/TIME: 05/09/2018 5:06 pm REASON FOR STUDY: Diabetic and short of breath COMPARISON: 03/13/2018 EXAM PARAMETERS: NUMBER OF VIEWS: two views TECHNIQUE: Digital Frontal and Lateral radiographic views of the chest acquired. RADIATION DOSE: NA LIMITATIONS: none FINDINGS: LUNGS AND PLEURA: No opacities, masses or pneumothorax. No pleural effusion. MEDIASTINUM AND HILAR STRUCTURES: No masses or contour abnormalities. HEART AND VASCULAR STRUCTURES: Heart normal size. No evidence for failure. BONES: No acute findings. HARDWARE: None in the chest. OTHER: No other significant finding. IMPRESSION: NO ACUTE RADIOGRAPHIC FINDING IN THE CHEST. TECHNICAL DOCUMENTATION: JOB ID: [id number] [employer]- All Rights Reserved Reading location - IP/workstation name: [email or web address]
--- NOTE | 2018-05-09 17:46 | RADIOLOGY REPORT (SQ) ---
EXAM DESCRIPTION: CT HEAD WITHOUT COMPLETED DATE/TIME: 05/09/2018 5:35 pm REASON FOR STUDY: Confusion, ataxia COMPARISON: 06/07/2017 TECHNIQUE: Axial images acquired through the brain without intravenous contrast. Images reviewed wi th bone, brain and subdural windows. Additional sagittal and coronal reconstructions were generated. Images stored on PACS. All CT scanners at this facility use dose modulation, iterative reconstruction, and/or weight based d osing when appropriate to reduce radiation dose to as low as reasonably achievable (ALARA). [facility]: Dose Right [facility]: CareDose [facility]: Dose Right [facility]: Teradose 4D [facility]: [employer] RADIATION DOSE: CT Rad equipment meets quality standard of care and radiation dose reduction techniq ues were employed. CTDIvol: 53.2 mGy. DLP: 1070 mGy-cm. mGy. LIMITATIONS: None. FINDINGS: VENTRICLES: Normal size and contour. CEREBRUM: No masses. No hemorrhage. No midline shift. No evidence for acute infarction. Normal gra y/white matter differentiation. Unchanged lacunar infarction of the right wing radiata. CEREBELLUM: No masses. No hemorrhage. No alteration of density. No evidence for acute infarction. EXTRAAXIAL SPACES: No fluid collections. No masses. ORBITS AND GLOBE: No intra- or extraconal masses. Normal contour of globe without masses. CALVARIUM: No fracture. PARANASAL SINUSES: No fluid or mucosal thickening. SOFT TISSUES: No mass or hematoma. OTHER: No other significant finding. IMPRESSION: No acute intracranial pathology. Unchanged lacunar infarction of the right wing radia ta. EVIDENCE OF ACUTE STROKE: NO. COMMENT: Quality ID # [id number]: Final reports with documentation of one or more dose reduction techniques (e.g., Automated exposure control, adjustment of the mA and/or kV according to patient size, use of iterative reconstruction technique) TECHNICAL DOCUMENTATION: JOB ID: [id number] [employer]- All Rights Reserved Reading location - IP/workstation name: [email or web address]
--- NOTE | 2018-05-09 17:57 | ER Document Report ---
ED General - General Chief Complaint: High Blood Sugar Stated Complaint: BLOOD SUGAR ISSUES Time Seen by Provider: 05/09/18 16:07 Mode of Arrival: Wheelchair Information source: Patient, Relative, [facility] Records Notes: 53-year-old female with hypertension, hyperlipidemia, coronary artery disease, diabetes, hypothyroidism, depression, anxiety, alcohol use presents with her son after he was called by her neighbor for confusion, and dropping objects. Son initially states that his mother has not been eating or drinking normally but then states she does is eat sugar. When I asked the son if she appeared altered to him he stated that he was very angry that she he had to pick her up so he did not notice. When I asked him to give me his opinion during my exam he stated that this was the patient's baseline. Upon my exam patient admits to feeling dizzy earlier but denies headache, chest pain, shortness of breath, abdominal pain, dysuria, hematuria, headache, slurred speech, weakness back pain. She denies any drug, alcohol use. Son expresses concern for worsening memory loss, worsening eyesight. She currently does not check her sugars daily because she has no supplies. She currently lives alone but son states that they are working on trying to find someone to help care for her. Patient denies any recent falls. Son reports the patient ambulates with a walker. TRAVEL OUTSIDE OF THE [place] IN LAST 30 DAYS: No - HPI Onset: Just prior to arrival Quality of pain: No pain Severity: None Associated symptoms: denies: Chest pain, Nausea, Vomiting, Shortness of breath Exacerbated by: Denies Relieved by: Denies Similar symptoms previously: No Recently seen / treated by doctor: No - Related Data Allergies/Adverse Reactions: No Known Allergies Allergy (Verified 05/09/18 15:00) Past Medical History - General Information source: Patient - Social History Smoking Status: Current Every Day Smoker Chew tobacco use (# tins/day): No Frequency of alcohol use: None Drug Abuse: None Lives with: Alone Family History: Arthritis, CAD, CVA, DM, Hyperlipidemia, Hypertension, Malignancy, Thyroid Disfunction Patient has suicidal ideation: No Patient has homicidal ideation: No - Past Medical History Cardiac Medical History: Reports: Hx Coronary Artery Disease, Hx Hypercholesterolemia, Hx Hypertension Denies: Hx Atrial Fibrillation, Hx Congestive Heart Failure, Hx Heart Attack , Hx Peripheral Vascular Disease, Hx Pulmonary Embolism, Hx Heart Murmur Pulmonary Medical History: Reports: Hx Asthma - no meds/inhalers, last ED visit > 5 years ago, Hx Bronchitis, Hx Pneumonia - denies hospitalization Denies: Hx COPD, Hx Respiratory Failure, Hx Sleep Apnea, Hx Tuberculosis Endocrine Medical History: Reports: Hx Diabetes Mellitus Type 2, Hx Hypothyroidism. Denies: Hx Graves' Disease, Hx Hyperthyroidism Renal/ Medical History: Denies: Hx End Stage Renal Disease, Hx Kidney Stones, Hx Peritoneal Dialysis Malignancy Medical History: Denies: Hx Lung Cancer GI Medical History: Reports: Hx Gastroesophageal Reflux Disease. Denies: Hx Crohn's Disease, Hx Hiatal Hernia, Hx Irritable Bowel, Hx Liver Failure, Hx Pancreatitis, Hx Ulcer Musculoskeletal Medical History: Reports Hx Arthritis, Reports Hx Fibromyalgia - Dx'ed approx 15 years ago, Denies Hx Muscular Dystrophy, Reports Hx Musculoskeletal Deformity Skin Medical History: Denies Hx MRSA Psychiatric Medical History: Reports: Hx Anxiety, Hx Attention Deficit Hyperactivity Disorder, Hx Depression Denies: Hx Bipolar Disorder, Hx Post Traumatic Stress Disorder, Hx Schizophrenia Traumatic Medical History: Reports: Hx Fractures Past Surgical History: Reports: Hx Section - x 2, Hx Cholecystectomy - open , Hx Oral Surgery, Hx Orthopedic Surgery - right knee replacement, Hx Tubal Ligation. Denies: Hx Appendectomy, Hx Bowel Surgery, Hx Colostomy, Hx Coronary Artery Bypass Graft, Hx Gastric Bypass Surgery, Hx Herniorrhaphy, Hx Hysterectomy, Hx Mastectomy, Hx Pacemaker, Hx Tonsillectomy - Immunizations Immunizations up to date: Yes Hx Diphtheria, Pertussis, Tetanus Vaccination: Yes Review of Systems - Review of Systems Notes: REVIEW OF SYSTEMS: CONSTITUTIONAL : Denies fever, chills, or sweats. Denies recent illness. Denies weight loss, recent hospitalizations. EENT: Denies visual changes, eye pain. Denies sore throat, oral lesions, difficulty swallowing. CARDIOVASCULAR: Denies chest pain. Denies palpitations. Denies lower extremity edema. RESPIRATORY: Denies cough. Denies shortness of breath, wheezing. GASTROINTESTINAL: Denies abdominal pain or distention. Denies nausea, vomiting , or diarrhea. Denies blood in vomitus, stools, or per rectum. Denies black, tarry stools. Denies constipation. GENITOURINARY: Denies difficulty urinating, painful urination, frequency, blood in urine, or vaginal discharge. MUSCULOSKELETAL: Denies back or neck pain or stiffness. Denies joint pain or swelling. SKIN: Denies rash, lesions or sores. HEMATOLOGIC : Denies easy bruising or bleeding. LYMPHATIC: Denies swollen glands. NEUROLOGICAL: Denies confusion or altered mental status. Denies loss of consciousness. Denies headache. Denies weakness or paralysis. Denies problems difficulty with ambulation, slurred speech. Denies sensory loss, numbness, or tingling. Denies seizures. PSYCHIATRIC: Denies anxiety or stress. Denies depression, suicidal ideation, or homicidal ideation. Denies visual or auditory hallucinations. Physical Exam - Vital signs Vitals: Temp Pulse Resp BP Pulse Ox 99.1 F 83 20 128/75 H 94 05/09/18 15:23 05/09/18 15:23 05/09/18 15:23 05/09/18 15:23 05/09/18 15:23 Interpretation: Normal - Notes Notes: PHYSICAL EXAMINATION: GENERAL: Well-appearing, well-nourished and in no acute distress. HEAD: Atraumatic, normocephalic. EYES: Pupils equal round and reactive to light, extraocular movements intact, conjunctiva are normal. ENT: Nares patent, oropharynx clear without exudates. dry mucous membranes. Poor dentition NECK: Normal range of motion, supple without lymphadenopathy LUNGS: Breath sounds clear to auscultation bilaterally and equal. No wheezes rales or rhonchi. HEART: Regular rate and rhythm without murmurs ABDOMEN: Soft, nontender, nondistended abdomen. No guarding, no rebound. No masses appreciated. Female : deferred Musculoskeletal: Normal range of motion, no pitting or edema. No cyanosis. NEUROLOGICAL: Cranial nerves grossly intact. Normal speech, Normal sensory, motor exams. NIH-0. PSYCH: Normal mood, normal affect. SKIN: Warm, Dry, normal turgor, no rashes or lesions noted. Course - Re-evaluation Re-evalutation: Laboratory 05/09/18 05/09/18 05/09/18 16:02 16:10 16:10 WBC RBC Hgb Hct MCV MCH MCHC RDW Plt Count Seg Neutrophils % Lymphocytes % Monocytes % Eosinophils % Basophils % Absolute Neutrophils Absolute Lymphocytes Absolute Monocytes Absolute Eosinophils Absolute Basophils PT INR APTT Sodium Potassium Chloride Carbon Dioxide Anion Gap BUN Creatinine Est GFR ( Amer) Est GFR (Non-Af Amer) Glucose POC Glucose 256 H Calcium Total Bilirubin Direct Bilirubin Neonat Total Bilirubin Neonat Direct Bilirubin Neonat Indirect Bili AST ALT Alkaline Phosphatase Troponin I Total Protein Albumin Urine Color YELLOW Urine Appearance CLOUDY Urine pH 5.0 Ur Specific Snook 1.026 Urine Protein 100 H Urine Glucose (UA) >=500 H Urine Ketones TRACE H Urine Blood NEGATIVE Urine Nitrite NEGATIVE Urine Bilirubin NEGATIVE Urine Urobilinogen 2.0 H Ur Leukocyte Esterase NEGATIVE Urine WBC (Auto) 5 Urine RBC (Auto) 3 Squamous Epi Cells Auto 7 Urine Mucus (Auto) MANY Urine Ascorbic Acid NEGATIVE Urine Opiates Screen NEGATIVE Urine Methadone Screen NEGATIVE Ur Barbiturates Screen NEGATIVE Ur Phencyclidine Scrn NEGATIVE Ur Amphetamines Screen NEGATIVE U Benzodiazepines Scrn NEGATIVE Urine Cocaine Screen NEGATIVE U Marijuana (THC) Screen NEGATIVE Serum Alcohol 05/09/18 05/09/18 05/09/18 16:28 16:28 16:28 WBC 13.2 H RBC 4.85 Hgb 13.8 Hct 40.7 MCV 84 MCH 28.4 MCHC 33.8 RDW 15.3 H Plt Count 456 H Seg Neutrophils % 77.7 Lymphocytes % 16.1 Monocytes % 4.6 Eosinophils % 0.6 Basophils % 1.0 Absolute Neutrophils 10.3 H Absolute Lymphocytes 2.1 Absolute Monocytes 0.6 Absolute Eosinophils 0.1 Absolute Basophils 0.1 PT INR APTT Sodium 141.7 Potassium 3.8 Chloride 103 Carbon Dioxide 24 Anion Gap 15 BUN 17 Creatinine 0.59 Est GFR ( Amer) > 60 Est GFR (Non-Af Amer) > 60 Glucose 244 H POC Glucose Calcium 9.8 Total Bilirubin 0.4 Direct Bilirubin 0.2 Neonat Total Bilirubin Not Reportable Neonat Direct Bilirubin Not Reportable Neonat Indirect Bili Not Reportable AST 22 ALT 23 Alkaline Phosphatase 80 Troponin I < 0.012 Total Protein 7.2 Albumin 4.3 Urine Color Urine Appearance Urine pH Ur Specific Snook Urine Protein Urine Glucose (UA) Urine Ketones Urine Blood Urine Nitrite Urine Bilirubin Urine Urobilinogen Ur Leukocyte Esterase Urine WBC (Auto) Urine RBC (Auto) Squamous Epi Cells Auto Urine Mucus (Auto) Urine Ascorbic Acid Urine Opiates Screen Urine Methadone Screen Ur Barbiturates Screen Ur Phencyclidine Scrn Ur Amphetamines Screen U Benzodiazepines Scrn Urine Cocaine Screen U Marijuana (THC) Screen Serum Alcohol 05/09/18 05/09/18 16:28 18:00 WBC RBC Hgb Hct MCV MCH MCHC RDW Plt Count Seg Neutrophils % Lymphocytes % Monocytes % Eosinophils % Basophils % Absolute Neutrophils Absolute Lymphocytes Absolute Monocytes Absolute Eosinophils Absolute Basophils PT 12.9 INR 0.93 APTT 28.9 Sodium Potassium Chloride Carbon Dioxide Anion Gap BUN Creatinine Est GFR ( Amer) Est GFR (Non-Af Amer) Glucose POC Glucose Calcium Total Bilirubin Direct Bilirubin Neonat Total Bilirubin Neonat Direct Bilirubin Neonat Indirect Bili AST ALT Alkaline Phosphatase Troponin I Total Protein Albumin Urine Color Urine Appearance Urine pH Ur Specific Snook Urine Protein Urine Glucose (UA) Urine Ketones Urine Blood Urine Nitrite Urine Bilirubin Urine Urobilinogen Ur Leukocyte Esterase Urine WBC (Auto) Urine RBC (Auto) Squamous Epi Cells Auto Urine Mucus (Auto) Urine Ascorbic Acid Urine Opiates Screen Urine Methadone Screen Ur Barbiturates Screen Ur Phencyclidine Scrn Ur Amphetamines Screen U Benzodiazepines Scrn Urine Cocaine Screen U Marijuana (THC) Screen Serum Alcohol < 10 Chest X-Ray 05/09/18 16:08 IMPRESSION: NO ACUTE RADIOGRAPHIC FINDING IN THE CHEST. Head CT 05/09/18 17:23 IMPRESSION: No acute intracranial pathology. Unchanged lacunar infarction of the right wing radiata. EVIDENCE OF ACUTE STROKE: NO. Head CTA 05/09/18 17:24 IMPRESSION: NO CTA EVIDENCE OF STENOSIS OR ANEURYSM OF THE [place]. Neck CTA 05/09/18 17:24 IMPRESSION: NORMAL CTA OF THE EXTRA-CRANIAL CAROTID AND VERTEBRAL ARTERIES. 05/09/18 19:09 53-year-old female with multiple comorbidities presents via private vehicle with her son who reports that he was called by her neighbors because she seemed to not be acting herself and was dropping things. Upon my exam patient has no physical complaints. Vital signs reviewed and within normal limits. Patient is afebrile, normotensive and not hypoxic. NIH was performed and is 0. CT, CTA of the head and neck showed no acute process or large vessel occlusion. There was a old lacunar infarct which neither the patient or son were aware of. CBC with mild leukocytosis no clear source, no anemia. CMP does show hyperglycemia without evidence of DKA. EKG was obtained and showed the patient to be in normal sinus rhythm without evidence of ST elevation. On reevaluation patient now complaining of a frontal headache. Neuro exam is unchanged. She did receive Reglan and Benadryl as well as IV fluids during her ED course. Cardiac enzymes were within normal limits. Urinalysis not consistent with infection. Urine drug screen negative. Alcohol negative. Patient and son provided copies of today's imaging. She was encouraged to follow-up with her primary care physician Dr. Dimas in the next 2 days. It is unclear what occurred prior to arrival that prompted the neighbor to call the son. Patient is a poor informant and the son seems very aggravated with the situation. Patient will stay with her son talita. She is requesting discharge home. Patient was evaluated and treated as appropriate for the patient's presenting symptoms and complaint, with consideration of any critical or life threatening conditions that may be associated with their obtained history and exam as noted above. All results were discussed with patient and son who are provided copies of all of the patient's imaging and lab work that was performed today. Patient provided the opportunity to ask questions, and express concerns. Patient was educated on treatments based on their presumed diagnosis as noted above. At this time we will discharge the patient with return precautions and follow-up recommendations. Verbal discharge instructions given a the bedside. Medication warnings reviewed. Patient is in agreement with this plan and has verbalized understanding of return precautions. After careful consideration I feel that that patient can be safely discharged from the emergency department, they were advised to followup with a primary care physician in 2-3 days. Dictation on this chart was performed using voice recognition software and may result in unintended grammatical, spelling, syntax or errors. 05/09/18 21:20 - Vital Signs Vital signs: Temp Pulse Resp BP Pulse Ox 99.1 F 86 18 160/98 H 97 05/09/18 15:23 05/09/18 17:33 05/09/18 19:02 05/09/18 19:02 05/09/18 19:02 - Laboratory Result Diagrams: 05/09/18 16:28 05/09/18 16:28 Laboratory results interpreted by me: 05/09/18 05/09/18 05/09/18 16:02 16:10 16:28 WBC 13.2 H RDW 15.3 H Plt Count 456 H Absolute Neutrophils 10.3 H Glucose POC Glucose 256 H Urine Protein 100 H Urine Glucose (UA) >=500 H Urine Ketones TRACE H Urine Urobilinogen 2.0 H 05/09/18 16:28 WBC RDW Plt Count Absolute Neutrophils Glucose 244 H POC Glucose Urine Protein Urine Glucose (UA) Urine Ketones Urine Urobilinogen - Diagnostic Test Radiology reviewed: Image reviewed, Reports reviewed - EKG Interpretation by Me EKG shows normal: Sinus rhythm Rate: Normal Rhythm: NSR When compared to previous EKG there are: No significant change Discharge - Discharge Clinical Impression: Reported confusion Headache Qualifiers: Headache type: unspecified Headache chronicity pattern: acute headache Intractability: not intractable Qualified Code(s): R51 - Headache Hypertension Qualifiers: Hypertension type: unspecified Qualified Code(s): I10 - Essential (primary) hypertension Hyperglycemia due to type 2 diabetes mellitus Qualifiers: Diabetes 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 You did not have any evidence of a dangerous condition associated with these blood sugars at this time. However, it is very important that you get your blood sugars under control. Please take all of your medications exactly as directed. You should avoid foods that are high in carbohydrates and sugary foods. Losing weight will also help to better control your blood sugars. Please return to emergency department immediately if you develop weakness, persistent vomiting, confusion, or any other symptoms that are concerning to you. As we have discussed, please follow up with your primary care doctor as soon as possible regarding today's ED visit and your headache symptoms. You have been seen in the Emergency Department (ED) for a headache. Please use Tylenol ( acetaminophen) or Motrin (ibuprofen) as needed for symptoms, but only as written on the box. Call your doctor or return to the ED if you have a worsening headache, sudden and severe headache, confusion, slurred speech, facial droop, weakness or numbness in any arm or leg, extreme fatigue, or other symptoms that concern you. Follow up with your [id number] hours for further care or return to the ED IMMEDIATELY if symptoms worsen or you have any concerns. If you cannot afford to follow up with your primary care physician a list of low cost clinics have been provided at the end of your discharge papers as well. Most prescribed medications have multiple side effects. The safest thing to do is when filling your prescription speak to your pharmacist regarding possible interactions with your normal home medications and over the counter medications such as Ibuprofen, Tylenol, Benadryl. If you experience any symptoms that cause you discomfort or concern you should discontinue the medication immediately and return to the emergency room or call your primary care physician. Forms: Elevated Blood Pressure, Smoking Cessation Education Referrals: AGNES DIMAS MD [Primary Care Provider] - Follow up as needed ED NIH Stroke Scale - NIH Stroke Scale *: 1. NIH scale should be completed with appropriate accompanying assessment tools. *: 2. The NIH should reflect what the patient is capable of doing and should not be coached by the clinician. 1a. Level of Consciousness: 0=Alert;keenly responsive -: 1=Drowsy -: 2=Obtunded -: 3=Coma/unresponsive or reflex to noxious stimuli. 1a. Responses: 0 1b. Orientation Questions: a. What month is it? -: b. How old are you? -: 0=Answers both questions correctly. -: 1=Answers one question correctly or patient is intubated or has orotracheal trauma. -: 2=Answers neither question correctly. 1b. Responses: 0 1c. Response to commands: a. Open and close eyes? -: b. Information Technology Director and release hand? -: Credit is given despite weakness. Demonstration of task is permitted. Substitute command if hands cannot be used. -: 0=Performs both tasks correctly -: 1=Performs one task correctly -: 2=Performs neither task correctly 1c. Responses: 0 2. Gaze: Establish eye contact and instruct patient to "Follow my finger" -: 0=Normal -: 1=Partial gaze palsy. Gaze is abnormal in one or both eyes, but where forced deviation or total gaze paresis is not present. -: 2=Forced deviation or total gaze paresis. 2. Responses: 0 3. Visual Kaur: Sees fingers in all four quadrants. -: 0=No visual loss. -: 1=Partial hemianopsia. -: 2=Complete hemianopsia. -: 3=Bilateral hemianopsia (including Cortical blindness) 3. Responses: 0 4. Facial Movement: Instruct patient to: -: a. Show me your teeth -: b. Raise your eyebrows -: c. Close your eyes -: d. Smile -: 0=Normal symmetrical movement -: 1=Minor paralysis (flattened nasolabial fold, asymmetry on smiling). -: 2=Partial paralysis (total or near total paralysis of lower face). -: 3=Complete paralysis of upper and lower face 4. Responses: 0 5. Motor functions (left arm): Alternate sides and extend each arm with palms down (90 degrees if sitting or 45 degrees for supine). -: 0=No drift;limb holds for full 10 seconds. -: 1=Drift; limb holds but drifts down before full 10 seconds, but does not hit bed. -: 2=Some effort against gravity; limb cannot get to or maintain position. -: 3=No effort against gravity; limb falls. -: 4=No movement. -: UN=Amputation, joint fusion, explain in comments. 5. Responses (left arm): 0 5. Motor Functions (right arm): Alternate sides and extend each arm with palms down (90 degrees if sitting or 45 degrees for supine). -: 0=No drift;limb holds for full 10 seconds. -: 1=Drift; limb holds but drifts down before full 10 seconds, but does not hit bed. -: 2=Some effort against gravity; limb cannot get to or maintain position. -: 3=No effort against gravity; limb falls. -: 4=No movement. -: UN=Amputation, joint fusion, explain in comments. 5. Responses (right arm): 0 6. Motor Functions (left leg): With patient lying supine, alternate sides and extend each leg (30 degrees always while supine). -: 0=No drift, leg holds position for full 5 seconds -: 1=Drift; leg falls before full 5 seconds but does not hit bed. -: 2=Some effort against gravity, leg falls to bed but some effort against gravity. -: 3=No effort against gravity, leg falls to bed immediately. -: 4=No movement. -: UN=Amputation, joint fusion; explain in comments. 6. Responses (left leg): 0 6. Motor Functions (right leg): With patient lying supine, alternate sides and extend each leg (30 degrees always while supine). -: 0=No drift, leg holds position for full 5 seconds -: 1=Drift; leg falls before full 5 seconds but does not hit bed. -: 2=Some effort against gravity, leg falls to bed but some effort against gravity. -: 3=No effort against gravity, leg falls to bed immediately. -: 4=No movement. -: UN=Amputation, joint fusion; explain in comments. 6. Responses (right leg): 0 7. Limb Ataxia: With eyes open instruct patient to: -: a. "Touch your finger to your nose". -: b. "Touch your heel to your gibson" -: 0=Absent -: 1=Present in one limb. -: 2=Present in two limbs. -: UN=Amputation or joint fusion; explain in comments. 7. Responses: 0 8. Sensory: Test sensation using pinprick or noxious stimuli. Test as many body parts as possible. -: 0=Normal;no sensory loss -: 1=Mile to moderate sensory loss (patient feels pin prick but is less sharp on affected side). -: 2=Severe or total sensory loss. 8. Responses: 0 9. Best Language: Instruct patient to: -: a. "Describe what you see in this picture." -: b. "Name the items in this picture." -: c. "Read these sentences." -: 0=No aphasia, normal -: 1=Mild to moderate aphasia. -: 2=Severe aphasia -: 3=Mute, global aphasia, no usable speech or auditory comprehension. 9. Responses: 0 10. Articulation, Dysarthia: Instruct patient to: -: "Read these words" or "Repeat these words" -: 0=Normal -: 1=Mild to moderate; patient may slur some words but can be understood without difficulty. -: 2=Severe; patients speech so slurred as to be unintelligible in the absence of dysphasia. -: UN=Intubated or other physical barrier, explain in comments. 10. Responses: 0 11. Extinction or inattention: 0=No abnormality -: 1= Visual, tactile, auditory, spatial, or personal inattention or extinction to bilateral simulation in one or the sensory modalities. -: 2=Profound mechelle-inattention or mechelle-inattention to more than one modality; does not recognize own hand. 11. Responses: 0 Total Score: 0
--- NOTE | 2018-05-09 18:04 | RADIOLOGY REPORT (SQ) ---
EXAM DESCRIPTION: CTA HEAD COMPLETED DATE/TIME: 05/09/2018 5:46 pm REASON FOR STUDY: Confusion, ataxia COMPARISON: None. TECHNIQUE: Post IV contrast scanning, thin section axial imaging through the brain to evaluate the a rterial structures. Source and MIP images are saved and reviewed on PACS. Advanced 3D imaging as volume-rendering, MIPs, SSD performed? yes All CT scanners at this facility use dose modulation, iterative reconstruction, and/or weight based d osing when appropriate to reduce radiation dose to as low as reasonably achievable (ALARA). [facility]: Dose Right [facility]: CareDose [facility]: Dose Right [facility]: Teradose 4D [facility]: YouBeauty CONTRAST TYPE AND DOSE: contrast/concentration: Isovue 350.00 mg/ml; Total Contrast Delivered: 70.0 ml; Total Saline Delivered: 75.0 ml RENAL FUNCTION: GFR > 60. LIMITATIONS: None. FINDINGS: [place]: The anterior, middle, posterior cerebral arteries are all patent. No ev idence of aneurysm or focal stenosis. 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 POSTERIOR CIRCULATION: The distal vertebral arteries are patent as is the basilar artery. No aneurysm . BRAIN: No gross enhancing lesions as visualized. The superior cerebral hemispheres are not included in the field of view. BONES: Intact as visualized. SINUSES: No fluid or mucosal thickening. OTHER: No other significant finding. IMPRESSION: NO CTA EVIDENCE OF STENOSIS OR ANEURYSM OF THE [place]. TECHNICAL DOCUMENTATION: JOB ID: [id number] Quality ID # [id number]: Final reports with documentation of one or more dose reduction techniques (e.g., Au tomated exposure control, adjustment of the mA and/or kV according to patient size, use of iterative reconstruction technique) 2010 [employer]- All Rights Reserved Reading location - IP/workstation name: [email or web address]
--- NOTE | 2018-05-09 18:08 | RADIOLOGY REPORT (SQ) ---
EXAM DESCRIPTION: CTA NECK COMPLETED DATE/TIME: 05/09/2018 5:46 pm REASON FOR STUDY: Confusion, ataxia COMPARISON: None. TECHNIQUE: Axial dynamic scanning technique with dynamic contrast enhancement through the extra-aircraft design engineer nial carotid and vertebral arteries. Multiplanar reconstruction. 3-D MIPS and Volume-rendered imag es acquired at the workstation and saved to PACS. Images are reviewed in soft tissue, bone, lung w indows. All CT scanners at this facility use dose modulation, iterative reconstruction, and/or weight based d osing when appropriate to reduce radiation dose to as low as reasonably achievable (ALARA). [facility]: Dose Right [facility]: CareDose [facility]: Dose Right [facility]: Teradose 4D [facility]: [employer] Technologies CONTRAST TYPE AND DOSE: Not recorded not recorded RENAL FUNCTION: GFR > 60. LIMITATIONS: None. FINDINGS: AORTIC ARCH: Innominate and left carotid arise from single trunk. Bilateral subclavian ar teries are patent. No dissection. RIGHT CAROTIDS: Patent common, internal and external carotid arteries without suggestion of significa nt stenosis or irregular plaque. No dissection. RIGHT VERTEBRAL: Patent. No dissection. LEFT CAROTIDS: Patent common, internal and external carotid arteries without suggestion of significan t stenosis or irregular plaque. No dissection. LEFT VERTEBRAL: Patent. No dissection. OTHER: No other significant finding. OTHER: 3-D reconstructions confirm findings. IMPRESSION: NORMAL CTA OF THE EXTRA-CRANIAL CAROTID AND VERTEBRAL ARTERIES. COMMENT: Quality ID #[id number]: Measurements of distal internal carotid diameter were used as the denomina tor for stenosis measurement. TECHNICAL DOCUMENTATION: JOB ID: [id number] Quality ID # [id number]: Final reports with documentation of one or more dose reduction techniques (e.g., Au tomated exposure control, adjustment of the mA and/or kV according to patient size, use of iterative reconstruction technique) 2010 [employer]- All Rights Reserved Reading location - IP/workstation name: [email or web address]
[2018-05-09 18:13] LABS: URINE AMPHETAMINES SCREEN NEGATIVE; URINE BARBITURATES SCREEN NEGATIVE; URINE BENZODIAZEPINES SCREEN NEGATIVE; URINE COCAINE SCREEN NEGATIVE; URINE MARIJUANA (THC) SCREEN NEGATIVE; URINE METHADONE SCREEN NEGATIVE; URINE PHENCYCLIDINE SCREEN NEGATIVE
[2018-05-09 18:16] LABS: INTERNATIONAL RATION (INR) 0.93; PROTHROMBIN TIME 12.9 SEC (11.4-15.4)
[2018-05-09 18:17] LABS: PARTIAL THROMBOPLASTIN TIME 28.9 SEC (23.5-35.8)
[2018-05-09] MEDS ORDERED: METOCLOPRAMIDE HCL INJ/PF 10 MG/2 ML SDV IV ONE (18:31)
[2018-05-09] MEDS ORDERED: DIPHENHYDRAMINE HCL 50 MG/ML VIAL IV ONE (18:31)
[2018-05-09 19:07] VITALS: BP 160/98
--- NOTE | 2018-05-10 10:42 | EKG REPORT ---
SEVERITY:- NORMAL ECG - SINUS RHYTHM : Confirmed by: Kyle Vallejo 10-May-2018 10:41:19
== END 2018-05-09 19:12 | disposition home or self-care (01) ==
LOC: ER 14:59
DX: E11.65 Type 2 diabetes mellitus with hyperglycemia (principal); I10 Essential (primary) hypertension; R51 Headache; D72.829 Elevated white blood cell count, unspecified; I25.10 Atherosclerotic heart disease of native coronary artery without angina pectoris; F17.200 Nicotine dependence, unspecified, uncomplicated; J45.909 Unspecified asthma, uncomplicated; Z86.73 Personal history of transient ischemic attack (TIA), and cerebral infarction without residual deficits
CPT/HCPCS: 93005; 99284; 96361; 96374; 96375; 36415; 87040; 87086; 82962; 80307 ×2; 85025; 85610; 85730; 80053; 81001; 84484; 71046; 70450; 70496; 70498; 93010; J1200; J2765; J7030

== ENCOUNTER 2019-01-13 17:20 | Emergency (ER) | payer OTHER ==
--- NOTE | 2019-01-13 18:07 | ER Document Report ---
ED Medical Screen (RME) - General Chief Complaint: Foot Pain Stated Complaint: RIGHT FOOT PAIN/SKIN SORE Time Seen by Provider: 01/13/19 17:53 Primary Care Provider: [facility] [Primary Care Provider] - Follow up as needed Notes: Patient is a 54-year-old female with a history of type 2 diabetes who presents to the emergency department with a chief complaint of right foot wound. Patient states she did follow-up with Dr. Dimas who referred her to wound care. Her appointment and wound care is not till January and her family members are concerned that she is a diabetic and has a wound on the foot that is not healing. Patient states 1 month ago she did fall injuring the right foot which is how she originally obtained the injury. Patient states she has been out of her strips and has not been checking her blood sugar at home. Patient does report some urinary frequency. TRAVEL OUTSIDE OF THE [place] IN LAST 30 DAYS: No - Related Data Allergies/Adverse Reactions: No Known Allergies Allergy (Verified 01/13/19 17:23) Past Medical History - Past Medical History Cardiac Medical History: Reports: Hx Coronary Artery Disease, Hx Hypercholesterolemia, Hx Hypertension Denies: Hx Atrial Fibrillation, Hx Congestive Heart Failure, Hx Heart Attack, Hx Peripheral Vascular Disease, Hx Pulmonary Embolism, Hx Heart Murmur Pulmonary Medical History: Reports: Hx Asthma - no meds/inhalers, last ED visit > 5 years ago, Hx Bronchitis, Hx Pneumonia - denies hospitalization Denies: Hx COPD, Hx Respiratory Failure, Hx Sleep Apnea, Hx Tuberculosis Endocrine Medical History: Reports: Hx Diabetes Mellitus Type 2, Hx Hypothyroidism. Denies: Hx Graves' Disease, Hx Hyperthyroidism Renal/ Medical History: Denies: Hx End Stage Renal Disease, Hx Kidney Stones, Hx Peritoneal Dialysis Malignancy Medical History: Denies: Hx Lung Cancer GI Medical History: Reports: Hx Gastroesophageal Reflux Disease. Denies: Hx Crohn's Disease, Hx Hiatal Hernia, Hx Irritable Bowel, Hx Liver Failure, Hx Pancreatitis, Hx Ulcer Musculoskeltal Medical History: Reports Hx Arthritis, Reports Hx Fibromyalgia - Dx'ed approx 15 years ago, Denies Hx Muscular Dystrophy, Reports Hx Musculoskeletal Deformity, Denies Hx Systemic Lupus Erythematosus Skin Medical History: Denies Hx MRSA Psychiatric Medical History: Reports: Hx Anxiety, Hx Attention Deficit Hyperactivity Disorder, Hx Depression Denies: Hx Bipolar Disorder, Hx Post Traumatic Stress Disorder, Hx Schizophrenia Traumatic Medical History: Reports: Hx Fractures Past Surgical History: Reports: Hx Section - x 2, Hx Cholecystectomy - open , Hx Oral Surgery, Hx Orthopedic Surgery - right knee replacement, Hx Tubal Ligation. Denies: Hx Appendectomy, Hx Bowel Surgery, Hx Colostomy, Hx Coronary Artery Bypass Graft, Hx Gastric Bypass Surgery, Hx Herniorrhaphy, Hx Hysterectomy, Hx Mastectomy, Hx Pacemaker, Hx Tonsillectomy - Immunizations Immunizations up to date: Yes Hx Diphtheria, Pertussis, Tetanus Vaccination: Yes Physical Exam - Vital signs Vitals: Temp Pulse Resp BP Pulse Ox 99.2 F 84 18 123/73 95 01/13/19 17:27 01/13/19 17:27 01/13/19 17:27 01/13/19 17:27 01/13/19 17:27 - Skin Skin Temperature: Warm Skin Moisture: Dry Skin Color: Normal Notes: 1.5 cm x 2 cm ulcer to the medial aspect of the right foot, minimal drainage. Course - Re-evaluation Re-evalutation: 01/13/19 18:07 I have greeted and performed a rapid initial assessment of this patient. A comprehensive ED assessment and evaluation of the patient, analysis of test results and completion of the medical decision making process will be conducted by additional ED providers. - Vital Signs Vital signs: Temp Pulse Resp BP Pulse Ox 99.2 F 84 18 123/73 95 01/13/19 17:27 01/13/19 17:27 01/13/19 17:27 01/13/19 17:27 01/13/19 17:27 Doctor's Discharge - Discharge Referrals: [facility] [Primary Care Provider] - Follow up as needed
--- NOTE | 2019-01-13 18:41 | RADIOLOGY REPORT (SQ) ---
EXAM DESCRIPTION: FOOT RIGHT COMPLETE COMPLETED DATE/TIME: 01/13/2019 6:32 pm REASON FOR STUDY: right foot wound, fall x 1 month COMPARISON: None. NUMBER OF VIEWS: Three views. TECHNIQUE: AP, lateral and oblique radiographic images acquired of the right foot. LIMITATIONS: None. FINDINGS: MINERALIZATION: Osteopenia. BONES: There is transverse fracture involving the base of the 5th proximal phalanx. JOINTS: No effusions. SOFT TISSUES: No soft tissue swelling. No foreign body. OTHER: No other significant finding. IMPRESSION: Fracture of the 5th proximal phalanx. TECHNICAL DOCUMENTATION: JOB ID: [id number] [employer] All Rights Reserved Reading location - IP/workstation name: [email or web address]
[2019-01-13 19:25] LABS: ABSOLUTE BASOPHILS # (AUTO) 0.1 10^3/uL (0.0-0.2); ABSOLUTE EOSINOPHILS # (AUTO) 0.1 10^3/uL (0.0-0.6); ABSOLUTE LYMPHOCYTES (AUTO) 3.5 10^3/uL (0.5-4.7); ABSOLUTE MONOCYTES (AUTO) 0.6 10^3/uL (0.1-1.4); ABSOLUTE NEUT (AUTO) 6.1 10^3/uL (1.7-8.2); BASOPHILS % (AUTO) 1.4 % (0-2); EOSINOPHILS % (AUTO) 1.1 % (0-6); HEMATOCRIT 38.8 % (36.0-47.0); HEMOGLOBIN 12.9 g/dL (12.0-15.5); LYMPHOCYTES % (AUTO) 33.3 % (13-45); MEAN CORPUSCULAR HEMOGLOBIN 29.1 pg (27.0-33.4); MEAN CORPUSCULAR HGB CONC 33.2 g/dL (32.0-36.0); MEAN CORPUSCULAR VOLUME 88 fl (80-97); MONOCYTES % (AUTO) 5.7 % (3-13); PLATELET COUNT 313 10^3/uL (150-450); RED BLOOD COUNT 4.43 10^6/uL (3.72-5.28); RED CELL DISTRIBUTION WIDTH 14.4 % (11.5-14.0); SEGMENTED NEUTROPHILS % (AUTO) 58.5 % (42-78); TOTAL CELLS COUNTED % (AUTO) 100 %; WHITE BLOOD COUNT 10.4 10^3/uL (4.0-10.5)
[2019-01-13 19:42] LABS: ALBUMIN 3.7 g/dL (3.5-5.0); ALKALINE PHOSPHATASE 64 U/L (38-126); ANION GAP 7 (5-19); ASPARTATE AMINO TRANSFERASE 17 U/L (14-36); BILIRUBIN,DIRECT 0.2 mg/dL (0.0-0.4); BILIRUBIN,TOTAL 0.2 mg/dL (0.2-1.3); BLOOD UREA NITROGEN 19 mg/dL (7-20); CARBON DIOXIDE 29 mmol/L (22-30); CHLORIDE 107 mmol/L (98-107); GLUCOSE 130 mg/dL (75-110); POTASSIUM 3.7 mmol/L (3.6-5.0); TOTAL PROTEIN 6.3 g/dL (6.3-8.2)
[2019-01-13 20:00] LABS: APPEARANCE,URINE SLIGHTLY-CLOUDY; BILIRUBIN,URINE MODERATE (NEGATIVE); GLUCOSE, URINE 50 mg/dL (NEGATIVE); KETONES,URINE TRACE mg/dL (NEGATIVE); LEUKOCYTE ESTERASE,URINE NEGATIVE (NEGATIVE); NITRITE,URINE NEGATIVE (NEGATIVE); PROTEIN,URINE 100 mg/dL (NEGATIVE); URINE SPECIFIC GRAVITY 1.034
[2019-01-13 20:02] LABS: COLOR,URINE YELLOW
[2019-01-13 20:24] VITALS: BP 117/70
--- NOTE | 2019-01-13 20:31 | ER Document Report ---
ED Extremity Problem, Lower - General Chief Complaint: Foot Pain Stated Complaint: RIGHT FOOT PAIN/SKIN SORE Time Seen by Provider: 01/13/19 17:53 Primary Care Provider: Wound Care [Provider Group] - Follow up as needed [facility] [Primary Care Provider] - Follow up as needed Mode of Arrival: Wheelchair Notes: 54-year-old female presented to ED for complaint of ulceration to the right foot. She has type 2 diabetes and went to the [facility] and they told her she needed to follow-up in the emergency room to ensure that it was okay to follow-up with wound care on February 03. 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 Sister states that she is not sure that the patient is taking her medications correctly. Patient does not have a telephone so the sister cannot check up on her frequently and the sister does not have a card to get to her house. The sister that is with her today said that another sister from out of state came up and does have a got to the hospital and how they are going back home. TRAVEL OUTSIDE OF THE [place] IN LAST 30 DAYS: No - HPI Patient complains to provider of: Other - Ulceration to the medial side of the right foot near the great toe denies any pain in the area Location: Foot Occurred: Other - A month Where: Home, Indoors Quality of pain: No pain - Patient states she does not feel the ulcer Severity: None Pain Level: Denies Context: Other - States she fell about a month ago Recent injury: Possibly Associated symptoms: Other - Also to the medial side of the right foot x-ray shows she also has 1/5 proximal toe fracture that she states does not hurt she states she does not know how she got that it unless it was during the fall a month ago Exacerbated by: Nothing Relieved by: Nothing - Related Data Allergies/Adverse Reactions: No Known Allergies Allergy (Verified 01/13/19 17:23) Past Medical History - General Information source: Patient, Relative - Social History Smoking Status: Current Every Day Smoker Chew tobacco use (# tins/day): No Frequency of alcohol use: None Drug Abuse: None Lives with: Alone Family History: Arthritis, CAD, CVA, DM, Hyperlipidemia, Hypertension, Malignancy, Thyroid Disfunction Patient has suicidal ideation: No Patient has homicidal ideation: No - Past Medical History Cardiac Medical History: Reports: Hx Coronary Artery Disease, Hx Hypercholesterolemia, Hx Hypertension Pulmonary Medical History: Reports: Hx Asthma - no meds/inhalers, last ED visit > 5 years ago, Hx Bronchitis, Hx Pneumonia - denies hospitalization EENT Medical History: Reports: None Neurological Medical History: Reports: Hx Cerebrovascular Accident Endocrine Medical History: Reports: Hx Diabetes Mellitus Type 2, Hx Hypothyroidism Renal/ Medical History: Reports: None Malignancy Medical History: Reports: None GI Medical History: Reports: Hx Gastroesophageal Reflux Disease Musculoskeletal Medical History: Reports Hx Arthritis, Reports Hx Fibromyalgia - Dx'ed approx 15 years ago, Reports Hx Musculoskeletal Deformity Skin Medical History: Reports None Psychiatric Medical History: Reports: Hx Anxiety, Hx Attention Deficit Hyperactivity Disorder, Hx Depression, Hx Post Traumatic Stress Disorder Traumatic Medical History: Reports: Hx Fractures Infectious Medical History: Reports: None Past Surgical History: Reports: Hx Section - x 2, Hx Cholecystectomy - open , Hx Oral Surgery, Hx Orthopedic Surgery - right knee replacement, Hx Tubal Ligation - Immunizations Immunizations up to date: Yes Hx Diphtheria, Pertussis, Tetanus Vaccination: Yes Review of Systems - Review of Systems Constitutional: No symptoms reported EENT: No symptoms reported Cardiovascular: No symptoms reported Respiratory: No symptoms reported Gastrointestinal: No symptoms reported Genitourinary: No symptoms reported Female Genitourinary: No symptoms reported Musculoskeletal: No symptoms reported Skin: Other - Small ulceration to the right medial foot just behind the great toe minimal drainage no necrosis no pain to the area no redness surrounding the ulcer Hematologic/Lymphatic: No symptoms reported Neurological/Psychological: No symptoms reported -: Yes All other systems reviewed and negative Physical Exam - Vital signs Vitals: Temp Pulse Resp BP Pulse Ox 99.2 F 84 18 123/73 95 01/13/19 17:27 01/13/19 17:27 01/13/19 17:27 01/13/19 17:27 01/13/19 17:27 Interpretation: Normal - General General appearance: Appears well, Alert - HEENT Head: Normocephalic, Atraumatic Eyes: Normal Pupils: PERRL - Respiratory Respiratory status: No respiratory distress Chest status: Nontender Breath sounds: Normal Chest palpation: Normal - Cardiovascular Rhythm: Regular Heart sounds: Normal auscultation Murmur: No - Abdominal Inspection: Normal Distension: No distension Bowel sounds: Normal Tenderness: Nontender Organomegaly: No organomegaly - Back Back: Normal, Nontender - Extremities General upper extremity: Normal inspection, Nontender, Normal color, Normal ROM, Normal temperature General lower extremity: Normal inspection, Nontender, Normal color, Normal ROM, Normal temperature, Normal weight bearing. No: Sherin's sign Foot: Other - X-ray showed a fracture of the proximal fifth toe on the right foot no tenderness no swelling no bruising - Neurological Neuro grossly intact: Yes Cognition: Normal Orientation: AAOx4 Simone Coma Scale Eye Opening: Spontaneous Simone Coma Scale Verbal: Oriented Simone Coma Scale Motor: Obeys Commands Bondurant Coma Scale Total: 15 Speech: Normal Motor strength normal: LUE, RUE, LLE, RLE Sensory: Normal - Psychological Associated symptoms: Normal affect, Normal mood - Skin Skin Temperature: Warm Skin Moisture: Dry Skin Color: Normal Location of irregularity: Extremities - Diabetic ulcer to the right medial foot times a month denies pain to the area no redness no swelling minimal drainage no necrosis noted Irregularity with: negative: Tenderness Course - Re-evaluation Re-evalutation: 01/14/19 01:34 Discharge planning referral made to consist concerning the systems concerns. Sister Marlen Mcmillan states she lives with her daughter and another 1 of the her daughters lives down the street and if you called [phone] she would get a message to Marlen. The patient lives in assisted living apartment but does not have a telephone. Sister has concerns the patient is not taking good care of herself and falls frequently but does not have a telephone for Marlen to call her and check on her and Marlen does not have a car to drive to the patient's house. Patient is fifth toe was kaya taped before discharge. Patient denied any pain during assessment. At discharge patient still stated she did not have any pain. Ulcer was cleaned well and dressed with gauze. Patient was started on Keflex and a prescription for the Keflex was given to patient and sister stated she would be sure that the patient received the medication. Sister stated she would get a pillbox and set up the patient's pills and show her how to take them to be sure that she is taking them properly. - Vital Signs Vital signs: Temp Pulse Resp BP Pulse Ox 98.5 F 68 16 117/70 95 01/13/19 20:23 01/13/19 20:23 01/13/19 20:23 01/13/19 20:23 01/13/19 20:23 - Laboratory Result Diagrams: 01/13/19 18:52 01/13/19 18:52 Laboratory results interpreted by me: 01/13/19 01/13/19 01/13/19 18:52 18:52 19:37 RDW 14.4 H Glucose 130 H Urine Protein 100 H Urine Glucose (UA) 50 H Urine Ketones TRACE H Urine Bilirubin MODERATE H Urine Urobilinogen 2.0 H - Diagnostic Test Radiology reviewed: Image reviewed, Reports reviewed Discharge - Discharge Clinical Impression: Fracture of fifth toe, right, closed Qualifiers: Encounter type: initial encounter Qualified Code(s): S92.501A - Displaced unspecified fracture of right lesser toe(s), initial encounter for closed fracture Diabetic ulcer of right foot Qualifiers: Diabetic foot ulcer location: other Diabetes mellitus type: type 2 Non-pressure ulcer stage: with muscle involvement without evidence of necrosis Qualified Code(s): E11.621 - Type 2 diabetes mellitus with foot ulcer Condition: Stable Disposition: HOME, SELF-CARE Additional Instructions: Fractured Toe You have fractured your toe. Although this fracture doesn't need a cast or splint, emergency evaluation was needed to assess the straightness of the bones and joints. Reduction ("setting") is necessary for toe fractures which are crooked or twisted. A toe fracture will heal in about three weeks. Usually, the fractured toe is taped to the next toe. The second toe acts as a moving splint to protect the broken one. Ice and elevation help during the first 48 hours. You may need crutches at first if walking is painful. When you begin walking, be careful NOT to do things that hurt. If weight bearing is not comfortable within a few days, you may require a special shoe, walking boot, or cast. Call the doctor or return at once if severe swelling, severe pain, or numbness develop in the toe, or if you suspect you may have re-injured it. You were seen today for a diabetic ulcer to the right foot. There is no current necrosis to the area at this time. He states this also has been there for about a month. It needs to be cleaned 3 times a day with some soap and water and a dry dressing applied. I have started you on Keflex you need to take that 4 times a day for the next 5 days. You need to be sure that you keep your appointment with the wound clinic as instructed. If you develop any fevers the wound increases in size or you develop any pain redness develops around the area you need to return to the emergency room immediately. FOLLOW-UP CARE: If you have been referred to a physician for follow-up care, call the physicians office for an appointment as you were instructed or within the next two days. If you experience worsening or a significant change in your symptoms, notify the physician immediately or return to the Emergency Department at any time for re-evaluation. Prescriptions: Cephalexin Monohydrate [Keflex 500 mg Capsule] 500 mg PO Q6H 5 Days capsule Referrals: [facility] [Primary Care Provider] - Follow up as needed [facility] [Provider Group] - Follow up as needed
[2019-01-13] MEDS ORDERED: CEPHALEXIN 500 MG CAPSULE PO ONE (20:33)
== END 2019-01-13 21:02 | disposition home or self-care (01) ==
LOC: ER 17:20
DX: S92.501A Displaced unspecified fracture of right lesser toe(s), initial encounter for closed fracture (principal); E11.621 Type 2 diabetes mellitus with foot ulcer; X58.XXXA Exposure to other specified factors, initial encounter; Y92.009 Unspecified place in unspecified non-institutional (private) residence as the place of occurrence of the external cause; F17.200 Nicotine dependence, unspecified, uncomplicated
CPT/HCPCS: 36415; 80053; 81001; 82962; 85025; 99283

== ENCOUNTER 2019-01-21 17:38 | Emergency (ER) | payer OTHER ==
--- NOTE | 2019-01-21 18:02 | ER Document Report ---
HPI - HPI Time Seen by Provider: 01/21/19 18:01 Pain Level: Denies Notes: 54-year-old female with a history of type 2 diabetes, diabetic ulceration to her right foot, previous CVA, neuropathies, hypertension presents with sister for evaluation of left ankle, states she was doing her diabetic foot care today and noticed that her left ankle was more swollen. Patient ambulates by a cane, and has a history of frequently falling. She is followed with a community care clinic, has just started with protective care services, obtaining disability Medicaid and working with a addiction social worker at [facility] closely. Patient is currently on Keflex for diabetic ulceration, sister says that she is running out of this soon of this antibiotic. Denies fevers, chills, chest pain,palpitations, shortness of breath, dyspnea, nausea, vomiting, diarrhea, abdominal pain, hematuria,blurred vision, double vision, loss of vision, speech changes, LH, dizziness, syncope, headaches, wheezing, ST, URI, neck pain, weakness, bowel or bladder dysfunction, saddle anesthesia, numbness or tingling in bilateral upper or lower extremities equally, muscle paralysis. - CONSTITUTIONAL Constitutional: DENIES: Fever, Chills - REPRODUCTIVE Reproductive: DENIES: : - MUSCULOSKELETAL Musculoskeletal: REPORTS: Extremity pain - L ankle Past Medical History - General Information source: Patient, Relative - Social History Smoking Status: Unknown if Ever Smoked Family History: Arthritis, CAD, CVA, DM, Hyperlipidemia, Hypertension, Malignancy, Thyroid Disfunction Patient has suicidal ideation: No Patient has homicidal ideation: No - Past Medical History Cardiac Medical History: Reports: Hx Coronary Artery Disease, Hx Hypercholestero lemia, Hx Hypertension Denies: Hx Atrial Fibrillation, Hx Congestive Heart Failure, Hx Heart Attack, Hx Peripheral Vascular Disease, Hx Pulmonary Embolism, Hx Heart Murmur Pulmonary Medical History: Reports: Hx Asthma - no meds/inhalers, last ED visit > 5 years ago, Hx Bronchitis, Hx Pneumonia - denies hospitalization Denies: Hx COPD, Hx Respiratory Failure, Hx Sleep Apnea, Hx Tuberculosis Neurological Medical History: Reports: Hx Cerebrovascular Accident Endocrine Medical History: Reports: Hx Diabetes Mellitus Type 2, Hx Hypothyroidism. Denies: Hx Graves' Disease, Hx Hyperthyroidism Renal/ Medical History: Denies: Hx End Stage Renal Disease, Hx Kidney Stones, Hx Peritoneal Dialysis Malignancy Medical History: Denies: Hx Lung Cancer GI Medical History: Reports: Hx Gastroesophageal Reflux Disease. Denies: Hx Crohn's Disease, Hx Hiatal Hernia, Hx Irritable Bowel, Hx Liver Failure, Hx Pancreatitis, Hx Ulcer Musculoskeletal Medical History: Reports Hx Arthritis, Reports Hx Fibromyalgia - Dx'ed approx 15 years ago, Denies Hx Muscular Dystrophy, Reports Hx Musculoskeletal Deformity, Denies Hx Systemic Lupus Erythematosus Skin Medical History: Denies Hx MRSA Psychiatric Medical History: Reports: Hx Anxiety, Hx Attention Deficit Hyperactivity Disorder, Hx Depression, Hx Post Traumatic Stress Disorder Denies: Hx Bipolar Disorder, Hx Schizophrenia Traumatic Medical History: Reports: Hx Fractures Past Surgical History: Reports: Hx Section - x 2, Hx Cholecystectomy - open , Hx Oral Surgery, Hx Orthopedic Surgery - right knee replacement, Hx Tubal Ligation. Denies: Hx Appendectomy, Hx Bowel Surgery, Hx Colostomy, Hx Coronary Artery Bypass Graft, Hx Gastric Bypass Surgery, Hx Herniorrhaphy, Hx Hysterectomy, Hx Mastectomy, Hx Pacemaker, Hx Tonsillectomy - Immunizations Immunizations up to date: Yes Hx Diphtheria, Pertussis, Tetanus Vaccination: Yes Vertical Provider Document - CONSTITUTIONAL Agree With Documented VS: Yes Exam Limitations: No Limitations General Appearance: WD/WN Notes: PHYSICAL EXAMINATION: GENERAL: Well-appearing, well-nourished and in no acute distress. HEAD: Atraumatic, normocephalic. EYES: Pupils equal round and reactive to light, extraocular movements intact, conjunctiva are normal. ENT: Nares patent, oropharynx clear without exudates. Moist mucous membranes. NECK: Normal range of motion, supple without lymphadenopathy LUNGS: Breath sounds clear to auscultation bilaterally and equal. No wheezes rales or rhonchi. HEART: Regular rate and rhythm without murmurs ABDOMEN: Soft, nontender, nondistended abdomen. No guarding, no rebound. No masses appreciated. Female : deferred Musculoskeletal: Normal range of motion, no pitting or edema. No cyanosis. left ankle with swelling, tenderness on lateral aspect of ankle. pain with inversion. squeeze test negative. dtr +2 BLE. Limited APROM. distal pulses + 2 BLE equally. Full motor and sensory function of bilateral lower extremities. No noted open wounds or abrasion. Normal gait. No vascular compromise. Peroneal nerve is intact with strong eversion and plantar flexion. Negative anterior drawer test. Diabetic ulcer to right foot behind the great toe, no necrosis to the area. NEUROLOGICAL: Cranial nerves grossly intact. Normal speech, normal gait. Normal sensory, motor exams PSYCH: Normal mood, normal affect. SKIN: Warm, Dry, normal turgor, no rashes or lesions noted. - INFECTION CONTROL TRAVEL OUTSIDE OF THE [place] IN LAST 30 DAYS: No Course - Re-evaluation Re-evalutation: 01/21/19 18:44 Afebrile vital stable no distress. X-ray of left ankle shows no acute fracture but however does show multiple areas of degenerative joint disease, states that cannot ascertain whether this is a acute or chronic trauma, does recommend correlation with an MRI, patient's clinical exam does not appear to be of an acute status, there is no erythema, swelling or tenderness to palpation. Will refer to specialist physician for further diagnostic images, will place patient in a Orthoglass splint. Consent by patient and sister given to place short left posterior splint,. cms intact, sensory motor function intact in bilateral lower extremities prior to splint application fiberglass splint placed without incident. cms intact 20 minutes after splint application. Splint is in good alignment. Bilateral lower extremities with motor and sensory function intact 20 minutes after application. Pt stated that splint felt comfortable. Will prescribe Keflex 500 mg twice daily for the next 7 days for continuation of treatment for diabetic ulcer, patient does have an appointment with the wound clinic in early January, sister has been washing diabetic ulcer every other day with soap and water. Advised to follow-up with primary care provider within the next 24 to 48 hours. Follow-up with specialist physician within the next 24 to 48 hours. We will give her a prescription for a wheelchair for patient to ambulate as currently she is ambulating with a cane but cannot with a splint. Safety precautions discussed. After performing a Medical Screening Examination, I estimate there is LOW risk for OPEN FRACTURE, COMPARTMENT SYNDROME, TENDON RUPTURE, ACUTE NEUROVASCULAR INJURY, or RETAINED FOREIGN BODY, thus I consider the discharge disposition reasonable. Also, there is no evidence or peritonitis, sepsis, or toxicity. I have reevaluated this patient multiple times and no significant life threatening changes are noted. The patient and I have discussed the diagnosis and risks, and we agree with discharging home with close follow-up with the understanding that symptoms and presentations can change. We also discussed returning to the Emergency Department immediately if new or worsening symptoms occur. We have discussed the symptoms which are most concerning (e.g., changing or worsening pain, fever, numbness, weakness, cool or painful digits) that necessitate immediate return. 01/21/19 20:04 - Vital Signs Vital signs: Temp Pulse Resp BP Pulse Ox 99.0 F 85 17 122/69 95 01/21/19 17:45 01/21/19 17:45 01/21/19 17:45 01/21/19 17:45 01/21/19 17:45 Discharge - Discharge Clinical Impression: Diabetic ulcer of right foot Left ankle pain Qualifiers: Chronicity: acute Qualified Code(s): M25.572 - Pain in left ankle and joints of left foot Condition: Stable Disposition: HOME, SELF-CARE Instructions: Sprained Ankle ([facility]), Ice & Elevation ([facility]), Use of Crutches ([facility]) Additional Instructions: Do not get splint wet. Use crutches or cane for ambulation. Follow-up with specialist physician for follow-up for your ankle x-ray if they want to order an MRI. Take antibiotics as directed for your diabetic ulcer, wash twice a day with soap and water. Follow-up with wound clinic as already scheduled. Follow- up with your primary care provider within 24 hours. Return immediately for any new or worsening symptoms. Follow up with primary care provider, call tomorrow to make followup appointment. Prescriptions: Cephalexin [Keflex] 500 mg PO BID #14 capsule Wheelchair 1 each MC CONTINUOUS PRN #1 each PRN Reason: Referrals: [facility] [Primary Care Provider] - Follow up tomorrow JUDITH LAGOS MD [ACTIVE PROVISIONAL STAFF] - Follow up in 3-5 days
--- NOTE | 2019-01-21 18:29 | RADIOLOGY REPORT (SQ) ---
EXAM DESCRIPTION: ANKLE LEFT COMPLETE COMPLETED DATE/TIME: 01/21/2019 6:14 pm REASON FOR STUDY: left ankle swelling COMPARISON: None. NUMBER OF VIEWS: Three views. TECHNIQUE: AP, lateral, and oblique radiographic images acquired of the left ankle. LIMITATIONS: None. FINDINGS: MINERALIZATION: Osteopenia. BONES: No acute fracture or dislocation. No worrisome bone lesions. JOINTS: No effusions. There is widening of the lateral ankle mortise. Moderate arthrosis. SOFT TISSUES: Soft tissue swelling about the lateral ankle. OTHER: Vascular calcinosis about the foot and ankle. IMPRESSION: Osteopenia. No displaced fracture or dislocation. There is widening of the lateral ank le mortise, moderate ankle joint arthrosis, and extensive soft tissue swelling about the lateral ankl e, concerning for acute and/or chronic trauma. Consider MRI to further evaluate. TECHNICAL DOCUMENTATION: JOB ID: [id number]- All Rights Reserved Reading location - IP/workstation name: [email or web address]
[2019-01-21 20:08] VITALS: BP 110/56
== END 2019-01-21 20:09 | disposition home or self-care (01) ==
LOC: ER 17:38
DX: M19.072 Primary osteoarthritis, left ankle and foot (principal); M25.572 Pain in left ankle and joints of left foot; E11.621 Type 2 diabetes mellitus with foot ulcer; L97.519 Non-pressure chronic ulcer of other part of right foot with unspecified severity; E11.40 Type 2 diabetes mellitus with diabetic neuropathy, unspecified; I10 Essential (primary) hypertension; I25.10 Atherosclerotic heart disease of native coronary artery without angina pectoris; J45.909 Unspecified asthma, uncomplicated; Z91.81 History of falling
CPT/HCPCS: 82962

== ENCOUNTER 2019-02-01 21:06 | Emergency (ER) | payer OTHER ==
--- NOTE | 2019-02-01 21:39 | ER Document Report ---
ED Extremity Problem, Upper - General Chief Complaint: Arm Injury Stated Complaint: FALL/LEFT FOREARM PAIN Time Seen by Provider: 02/01/19 21:39 Primary Care Provider: AGNES ATKINS MD [Primary Care Provider] - Follow up as needed Mode of Arrival: Ambulatory Information source: Patient, Relative Notes: HISTORY OF PRESENT ILLNESS: Patient is a 54-year-old female with a past medical history of multiple chronic conditions including hyperlipidemia, peripheral vascular disease, and diabetes with peripheral neuropathy who presents with left arm abrasion after a me chanical fall at home. Patient reports that she fell from her bed while attempting to stand to go to the bathroom. She denies losing consciousness and remembers all the events. Mechanism of injury: Fell from her bed Location: Home Onset: Suddenly prior to arrival Provocation: Movement Quality: Aching Radiation: None Severity: Mild Timing: Constant Numbness/Tingling: Denies Dominant hand: Right REVIEW OF SYSTEMS: CONSTITUTIONAL : Denies fever or chills, no sweats. Denies recent illness. EENT: Denies eye, ear, throat, or mouth pain or symptoms. Denies nasal or sinus congestion. CARDIOVASCULAR: Denies chest pain. RESPIRATORY: Denies cough, cold, or chest congestion. Denies shortness of breath, difficulty breathing, or wheezing. GASTROINTESTINAL: Denies abdominal pain. Denies nausea, vomiting, or diarrhea. Denies constipation. GENITOURINARY: Denies difficulty urinating, painful urination, burning, frequency, or blood in urine. FEMALE GENITOURINARY: Denies vaginal bleeding, abnormal or irregular periods. Last menstrual period MUSCULOSKELETAL: Positive for left arm pain. Denies neck or back pain or joint pain or swelling. SKIN: Denies rash or skin lesions. HEMATOLOGIC : Denies easy bruising or bleeding. LYMPHATIC: Denies swollen, enlarged glands. NEUROLOGICAL: Denies weakness or paralysis or loss of use of either side. Denies problems with gait or speech. Denies sensory or motor loss. PSYCHIATRIC: Denies anxiety or stress or depression. All other systems reviewed and negative. PHYSICAL EXAMINATION: GENERAL: Well-appearing, well-nourished and in no acute distress. HEAD: Atraumatic, normocephalic. No scalp deformity, depression, or crepitance. EYES: Pupils are 3 mm and equal/round/reactive to light, extraocular movements intact, sclera anicteric, conjunctiva are normal. ENT: Nares patent bilaterally, oropharynx clear without exudates or palatal petechia. Moist mucous membranes. No tonsil hypertrophy. NECK: Normal range of motion, supple without lymphadenopathy. LUNGS: Breath sounds present, equal, and clear to auscultation bilaterally. No wheezes, rales, or rhonchi. HEART: Regular rate and rhythm without murmurs, rubs, or gallops. 2+ peripheral pulses. Normal capillary refill. ABDOMEN: Soft, nontender, nondistended. Normoactive bowel sounds. No guarding, no rebound. No masses appreciated. BACK: Normal contour, no midline tenderness. Rectal exam deferred. GENITAL/PELVC: Deferred. EXTREMITIES: Small abrasion to the left lateral forearm without bleeding. Normal range of motion, no obvious deformity. No pitting or edema. No cyanosis and normal capillary refill <2 seconds. NEUROLOGICAL: No focal neurological deficits. Moves all extremities spontaneously and on command. PSYCH: Normal mood, normal affect. No suicidal thoughts/ideations. No homicidal thoughts/ideations. No hallucinations. SKIN: Warm, dry, normal turgor, no rashes or lesions noted. ASSESSMENT AND PLAN: This patient is a 54-year-old female who presents with left forearm abrasion after mechanical fall at home. 1. Will obtain labs, CT head, and reassess. 2. Will clean and bandaged left arm. TRAVEL OUTSIDE OF THE [place] IN LAST 30 DAYS: No - HPI Patient complains to provider of: Injury, Left, Forearm Onset: Just prior to arrival Recent injury: Yes Where: Home Quality of pain: No pain Severity of pain: Gone now Pain Level: Denies Context: Fall Associated symptoms: None Exacerbated by: denies: Nothing, Movement, Exertion Relieved by: denies: Nothing, Rest, Positioning Similar symptoms previously: No Recently seen / treated by doctor: No - Related Data Allergies/Adverse Reactions: No Known Allergies Allergy (Verified 01/21/19 17:39) Past Medical History - General Information source: Patient, Relative - Social History Smoking Status: Current Every Day Smoker Chew tobacco use (# tins/day): No Frequency of alcohol use: None Drug Abuse: None Lives with: Family Family History: Arthritis, CAD, CVA, DM, Hyperlipidemia, Hypertension, Malignancy, Thyroid Disfunction Patient has suicidal ideation: No Patient has homicidal ideation: No - Past Medical History Cardiac Medical History: Reports: Hx Coronary Artery Disease, Hx Hypercholesterolemia, Hx Hypertension Denies: Hx Atrial Fibrillation, Hx Congestive Heart Failure, Hx Heart Attack, Hx Peripheral Vascular Disease, Hx Pulmonary Embolism, Hx Heart Murmur Pulmonary Medical History: Reports: Hx Asthma - no meds/inhalers, last ED visit > 5 years ago, Hx Bronchitis, Hx Pneumonia - denies hospitalization Denies: Hx COPD, Hx Respiratory Failure, Hx Sleep Apnea, Hx Tuberculosis EENT Medical History: Reports: None Neurological Medical History: Reports: Hx Cerebrovascular Accident Endocrine Medical History: Reports: Hx Diabetes Mellitus Type 2, Hx Hy pothyroidism. Denies: Hx Graves' Disease, Hx Hyperthyroidism Renal/ Medical History: Reports: None. Denies: Hx End Stage Renal Disease, Hx Kidney Stones, Hx Peritoneal Dialysis Malignancy Medical History: Reports: None. Denies: Hx Lung Cancer GI Medical History: Reports: Hx Gastroesophageal Reflux Disease. Denies: Hx Crohn's Disease, Hx Hiatal Hernia, Hx Irritable Bowel, Hx Liver Failure, Hx Pancreatitis, Hx Ulcer Musculoskeletal Medical History: Reports Hx Arthritis, Reports Hx Fibromyalgia - Dx'ed approx 15 years ago, Denies Hx Muscular Dystrophy, Reports Hx Musculoskeletal Deformity, Denies Hx Systemic Lupus Erythematosus Skin Medical History: Reports None, Denies Hx MRSA Psychiatric Medical History: Reports: Hx Anxiety, Hx Attention Deficit Hyperactivity Disorder, Hx Depression, Hx Post Traumatic Stress Disorder Denies: Hx Bipolar Disorder, Hx Schizophrenia Traumatic Medical History: Reports: Hx Fractures Infectious Medical History: Reports: None Past Surgical History: Reports: Hx Section - x 2, Hx Cholecystectomy - open , Hx Oral Surgery, Hx Orthopedic Surgery - right knee replacement, Hx Tubal Ligation. Denies: Hx Appendectomy, Hx Bowel Surgery, Hx Colostomy, Hx Coronary Artery Bypass Graft, Hx Gastric Bypass Surgery, Hx Herniorrhaphy, Hx Hysterectomy, Hx Mastectomy, Hx Pacemaker, Hx Tonsillectomy - Immunizations Immunizations up to date: Yes Hx Diphtheria, Pertussis, Tetanus Vaccination: Yes Review of Systems - Review of Systems Constitutional: No symptoms reported EENT: No symptoms reported Cardiovascular: No symptoms reported Respiratory: No symptoms reported Gastrointestinal: No symptoms reported Genitourinary: No symptoms reported Female Genitourinary: No symptoms reported Musculoskeletal: See HPI Skin: No symptoms reported Hematologic/Lymphatic: No symptoms reported Neurological/Psychological: No symptoms reported -: Yes All other systems reviewed and negative Physical Exam - Vital signs Vitals: Temp Pulse Resp BP Pulse Ox 98.8 F 83 22 H 117/71 93 02/01/19 21:13 02/01/19 21:13 02/01/19 21:13 02/01/19 21:13 02/01/19 21:13 Interpretation: Normal - General General appearance: Appears well, Alert - HEENT Head: Normocephalic, Atraumatic Eyes: Normal Pupils: PERRL - Respiratory Respiratory status: No respiratory distress Chest status: Nontender Breath sounds: Normal Chest palpation: Normal - Cardiovascular Rhythm: Regular Heart sounds: Normal auscultation Murmur: No - Abdominal Inspection: Normal Distension: No distension Bowel sounds: Normal Tenderness: Nontender Organomegaly: No organomegaly - Back Back: Normal, Nontender - Extremities General upper extremity: Normal inspection, Nontender, Normal color, Normal ROM, Normal temperature General lower extremity: Normal inspection, Nontender, Normal color, Normal ROM, Normal temperature, Normal weight bearing. No: Sherin's sign - Neurological Neuro grossly intact: Yes Cognition: Normal Orientation: AAOx4 Simone Coma Scale Eye Opening: Spontaneous [place] Coma Scale Verbal: Oriented [place] Coma Scale Motor: Obeys Commands Simone Coma Scale Total: 15 Speech: Normal Motor strength normal: LUE, RUE, LLE, RLE Sensory: Normal - Psychological Associated symptoms: Normal affect, Normal mood - Skin Skin Temperature: Warm Skin Moisture: Dry Skin Color: Normal Course - Re-evaluation Re-evalutation: 02/02/19 00:48 CT scan shows no acute pathology. Will discharge the patient home with strict return precautions and follow-up with your primary physician. All results were explained to and discussed with the patient, and all questions addressed and answered for the patient. The patient and her family voice both understanding and agreeing with the plan. - Vital Signs Vital signs: Temp Pulse Resp BP Pulse Ox 98.8 F 83 18 138/71 H 98 02/01/19 21:13 02/01/19 21:13 02/02/19 00:21 02/02/19 00:21 02/02/19 00:21 - Laboratory Result Diagrams: 02/01/19 22:45 02/01/19 22:45 Laboratory results interpreted by me: 02/01/19 02/01/19 02/02/19 22:45 22:45 00:10 RDW 14.9 H Glucose 175 H Total Protein 5.8 L Urine Protein 30 H - Diagnostic Test Radiology reviewed: Image reviewed, Reports reviewed - EKG Interpretation by Me EKG shows normal: Sinus rhythm Rate: Normal Rhythm: NSR Deal/QRS: No: Right axis deviation, Left axis deviation, RBBB, LBBB, IVCD, LAHB/LAFB, LPHB/LPFB, Bifasicular block Voltage: No: Increased voltage, Consistant with LVH, Decreased voltage, Throughout, Limb leads P Waves: No: MELANIE, LAE, Absent, AV Dissociation, Other Heart block present: No: 1st Degree, Mobitz 1, Mobitz 2, CHB (3rd degree block) When compared to previous EKG there are: No significant change Discharge - Discharge Clinical Impression: Accident due to mechanical fall without injury Qualifiers: Encounter type: initial encounter Qualified Code(s): W19.XXXA - Unspecified fall, initial encounter Condition: Good Disposition: HOME, SELF-CARE Instructions: Abrasions ([facility]) Additional Instructions: You have been evaluated in the Emergency Department for falling and injuring your left arm. While here, you had blood work and a CT scan that did not show any acute issues and it is now safe to be discharged home. Please follow-up with your primary physician as instructed in 1 week. Return to the Emergency Department if you experience confusion, chest pain, or any other concerning symptoms. Prescriptions: Tramadol HCl [Ultram 50 mg Tablet] 50 mg PO Q6HP PRN #28 tablet PRN Reason: Cephalexin Monohydrate [Keflex 500 mg Capsule] 500 mg PO Q6H 10 Days #40 capsule Referrals: AGNES ATKINS MD [Primary Care Provider] - Follow up as needed Print Language: Micronesian
[2019-02-01 23:07] LABS: ABSOLUTE BASOPHILS # (AUTO) 0.1 10^3/uL (0.0-0.2); ABSOLUTE EOSINOPHILS # (AUTO) 0.1 10^3/uL (0.0-0.6); ABSOLUTE LYMPHOCYTES (AUTO) 3.7 10^3/uL (0.5-4.7); ABSOLUTE MONOCYTES (AUTO) 0.6 10^3/uL (0.1-1.4); ABSOLUTE NEUT (AUTO) 5.2 10^3/uL (1.7-8.2); BASOPHILS % (AUTO) 1.2 % (0-2); EOSINOPHILS % (AUTO) 0.9 % (0-6); HEMATOCRIT 37.2 % (36.0-47.0); HEMOGLOBIN 12.4 g/dL (12.0-15.5); LYMPHOCYTES % (AUTO) 37.9 % (13-45); MEAN CORPUSCULAR HEMOGLOBIN 29.1 pg (27.0-33.4); MEAN CORPUSCULAR HGB CONC 33.4 g/dL (32.0-36.0); MEAN CORPUSCULAR VOLUME 87 fl (80-97); MONOCYTES % (AUTO) 6.3 % (3-13); PLATELET COUNT 342 10^3/uL (150-450); RED BLOOD COUNT 4.26 10^6/uL (3.72-5.28); RED CELL DISTRIBUTION WIDTH 14.9 % (11.5-14.0); SEGMENTED NEUTROPHILS % (AUTO) 53.7 % (42-78); TOTAL CELLS COUNTED % (AUTO) 100 %; WHITE BLOOD COUNT 9.7 10^3/uL (4.0-10.5)
[2019-02-01 23:22] LABS: ALBUMIN 3.5 g/dL (3.5-5.0); ALKALINE PHOSPHATASE 47 U/L (38-126); ANION GAP 7 (5-19); ASPARTATE AMINO TRANSFERASE 19 U/L (14-36); BILIRUBIN,DIRECT 0.1 mg/dL (0.0-0.4); BILIRUBIN,TOTAL 0.3 mg/dL (0.2-1.3); BLOOD UREA NITROGEN 14 mg/dL (7-20); CALCIUM 9.2 mg/dL (8.4-10.2); CARBON DIOXIDE 28 mmol/L (22-30); CHLORIDE 104 mmol/L (98-107); CREATINE KINASE 88 U/L (30-135); GLUCOSE 175 mg/dL (75-110); POTASSIUM 4.2 mmol/L (3.6-5.0); TOTAL PROTEIN 5.8 g/dL (6.3-8.2)
[2019-02-01 23:23] LABS: ALCOHOL < 10 mg/dL (NONE DETECTED)
--- NOTE | 2019-02-01 23:44 | RADIOLOGY REPORT (SQ) ---
CLINICAL HISTORY: Fall COMPARISON: None. TECHNIQUE: CT HEAD WITHOUT IV CONTRAST on 02/01/2019 10:31 PM CDT This exam was performed according to our departmental dose-optimization program, which includes automated exposure control, adjustment of the mA and/or kV according to patient size and/or use of iterative reconstruction technique. FINDINGS: There is no acute hemorrhage, mass effect or midline shift. Rolon-white differentiation is preserved. There is no hydrocephalus. There is no significant volume loss for age. There are mild patchy hypodensities within the periventricular and subcortical white matter, consistent with microangiopathic ischemic changes. The calvarium is intact. Orbits and globes are unremarkable. The paranasal sinuses are clear. Mastoid air cells are clear. IMPRESSION: No acute intracranial findings.
[2019-02-02 00:37] LABS: APPEARANCE,URINE CLEAR; BILIRUBIN,URINE NEGATIVE (NEGATIVE); COLOR,URINE YELLOW; GLUCOSE, URINE NEGATIVE (NEGATIVE); KETONES,URINE NEGATIVE (NEGATIVE); LEUKOCYTE ESTERASE,URINE NEGATIVE (NEGATIVE); NITRITE,URINE NEGATIVE (NEGATIVE); PROTEIN,URINE 30 mg/dL (NEGATIVE); URINE SPECIFIC GRAVITY 1.025; UROBILINOGEN,URINE NEGATIVE mg/dL (<2.0)
[2019-02-02 00:49] LABS: URINE AMPHETAMINES SCREEN NEGATIVE; URINE BARBITURATES SCREEN NEGATIVE; URINE BENZODIAZEPINES SCREEN NEGATIVE; URINE COCAINE SCREEN NEGATIVE; URINE MARIJUANA (THC) SCREEN NEGATIVE; URINE METHADONE SCREEN NEGATIVE; URINE PHENCYCLIDINE SCREEN NEGATIVE
[2019-02-02 01:03] VITALS: BP 134/91
--- NOTE | 2019-02-02 23:23 | EKG REPORT ---
SEVERITY:- NORMAL ECG - SINUS RHYTHM : Confirmed by: Kyle Vallejo 02-Feb-2019 23:22:07
== END 2019-02-02 01:30 | disposition home or self-care (01) ==
LOC: ER 21:06
DX: S50.812A Abrasion of left forearm, initial encounter (principal); M79.632 Pain in left forearm; W06.XXXA Fall from bed, initial encounter; F17.200 Nicotine dependence, unspecified, uncomplicated; E11.9 Type 2 diabetes mellitus without complications
CPT/HCPCS: 36415; 70450; 80053; 80307; 81001; 82550; 85025; 93005; 93010; 99284

== ENCOUNTER 2019-02-09 14:01 | Emergency (ER) | payer OTHER ==
[2019-02-09] MEDS ORDERED: IBUPROFEN 600 MG TABLET PO ONE (14:56)
--- NOTE | 2019-02-09 14:58 | ER Document Report ---
ED Medical Screen (RME) - General Chief Complaint: Pedal Edema Stated Complaint: FEET/ANKLE SWELLING Time Seen by Provider: 02/09/19 14:51 Primary Care Provider: AGNES ATKINS MD [Primary Care Provider] - Follow up as needed Mode of Arrival: Wheelchair Information source: Patient Notes: Patient is a 54-year-old female presenting to the emergency department with c omplaints of swelling to her left foot. She is unsure if she had an injury to this area. She denies any pain other than when walking. She denies any chest pain or shortness of breath. She denies any history of DVTs, she is a smoker although she states she quit a few days ago, she denies any recent travel and denies any hormone replacement therapy. Exam: Bilateral lower extremity edema, increased to the left lower extremity. Palpable dorsalis pedis pulse. Pain with palpation to the plantar area of the foot. I have greeted and performed a rapid initial assessment of this patient. A comprehensive ED assessment and evaluation of the patient, analysis of test results and completion of the medical decision making process will be conducted by additional ED providers. I have specifically instructed the patient or family members with the patient to immediately return to any nursing staff should anything change in the patient's condition or with their chief complaint. This medical record was dictated with voice recognizing software. There may be grammatical, syntax errors that are unintended. TRAVEL OUTSIDE OF THE [place] IN LAST 30 DAYS: No - Related Data Allergies/Adverse Reactions: No Known Allergies Allergy (Verified 02/09/19 14:05) Past Medical History - Past Medical History Cardiac Medical History: Reports: Hx Coronary Artery Disease, Hx Hypercholesterolemia, Hx Hypertension Denies: Hx Atrial Fibrillation, Hx Congestive Heart Failure, Hx Heart Attack, Hx Peripheral Vascular Disease, Hx Pulmonary Embolism, Hx Heart Murmur Pulmonary Medical History: Reports: Hx Asthma - no meds/inhalers, last ED visit > 5 years ago, Hx Bronchitis, Hx Pneumonia - denies hospitalization Denies: Hx COPD, Hx Respiratory Failure, Hx Sleep Apnea, Hx Tuberculosis Neurological Medical History: Reports: Hx Cerebrovascular Accident Endocrine Medical History: Reports: Hx Diabetes Mellitus Type 2, Hx Hypothyroidism. Denies: Hx Graves' Disease, Hx Hyperthyroidism Renal/ Medical History: Denies: Hx End Stage Renal Disease, Hx Kidney Stones, Hx Peritoneal Dialysis Malignancy Medical History: Denies: Hx Lung Cancer GI Medical History: Reports: Hx Gastroesophageal Reflux Disease. Denies: Hx Crohn's Disease, Hx Hiatal Hernia, Hx Irritable Bowel, Hx Liver Failure, Hx Pancreatitis, Hx Ulcer Musculoskeltal Medical History: Reports Hx Arthritis, Reports Hx Fibromyalgia - Dx'ed approx 15 years ago, Denies Hx Muscular Dystrophy, Reports Hx Musculoskeletal Deformity, Denies Hx Systemic Lupus Erythematosus Skin Medical History: Denies Hx MRSA Psychiatric Medical History: Reports: Hx Anxiety, Hx Attention Deficit Hyperactivity Disorder, Hx Depression, Hx Post Traumatic Stress Disorder Denies: Hx Bipolar Disorder, Hx Schizophrenia Traumatic Medical History: Reports: Hx Fractures Past Surgical History: Reports: Hx Section - x 2, Hx Cholecystectomy - open , Hx Oral Surgery, Hx Orthopedic Surgery - right knee replacement, Hx Tubal Ligation. Denies: Hx Appendectomy, Hx Bowel Surgery, Hx Colostomy, Hx Coronary Artery Bypass Graft, Hx Gastric Bypass Surgery, Hx Herniorrhaphy, Hx Hysterectomy, Hx Mastectomy, Hx Pacemaker, Hx Tonsillectomy - Immunizations Immunizations up to date: Yes Hx Diphtheria, Pertussis, Tetanus Vaccination: Yes Physical Exam - Vital signs Vitals: Temp Pulse Resp BP Pulse Ox 98.6 F 81 17 138/86 H 95 02/09/19 14:07 02/09/19 14:07 02/09/19 14:07 02/09/19 14:07 02/09/19 14:07 Course - Vital Signs Vital signs: Temp Pulse Resp BP Pulse Ox 98.6 F 81 17 138/86 H 95 02/09/19 14:07 02/09/19 14:07 02/09/19 14:07 02/09/19 14:07 02/09/19 14:07 Doctor's Discharge - Discharge Referrals: AGNES ATKINS MD [Primary Care Provider] - Follow up as needed
--- NOTE | 2019-02-09 15:40 | RADIOLOGY REPORT (SQ) ---
EXAM DESCRIPTION: FOOT LEFT COMPLETE COMPLETED DATE/TIME: 02/09/2019 3:30 pm REASON FOR STUDY: left foot pain, unknown injury COMPARISON: 06/11/2008 NUMBER OF VIEWS: Three views. TECHNIQUE: AP, lateral and oblique radiographic images acquired of the left foot. LIMITATIONS: None. FINDINGS: MINERALIZATION: Normal. BONES: No acute fracture or dislocation. No worrisome bone lesions. JOINTS: No effusions. SOFT TISSUES: There is diffuse soft tissue swelling dorsally. OTHER: Small calcaneal spurs. IMPRESSION: Diffuse soft tissue swelling dorsally. No underlying fracture. No conventional radiogr aphic evidence of osteomyelitis. TECHNICAL DOCUMENTATION: JOB ID: [id number] [employer]- All Rights Reserved Reading location - IP/workstation name: [email or web address]
[2019-02-09 15:42] LABS: ABSOLUTE EOSINOPHILS # (AUTO) 0.1 10^3/uL (0.0-0.6); ABSOLUTE LYMPHOCYTES (AUTO) 2.6 10^3/uL (0.5-4.7); ABSOLUTE MONOCYTES (AUTO) 0.4 10^3/uL (0.1-1.4); ABSOLUTE NEUT (AUTO) 3.7 10^3/uL (1.7-8.2); BASOPHILS % (AUTO) 0.3 % (0-2); EOSINOPHILS % (AUTO) 1.2 % (0-6); HEMOGLOBIN 13.1 g/dL (12.0-15.5); LYMPHOCYTES % (AUTO) 38.1 % (13-45); MEAN CORPUSCULAR HEMOGLOBIN 29.1 pg (27.0-33.4); MEAN CORPUSCULAR HGB CONC 33.4 g/dL (32.0-36.0); MEAN CORPUSCULAR VOLUME 87 fl (80-97); MONOCYTES % (AUTO) 5.6 % (3-13); PLATELET COUNT 355 10^3/uL (150-450); RED BLOOD COUNT 4.48 10^6/uL (3.72-5.28); SEGMENTED NEUTROPHILS % (AUTO) 54.8 % (42-78); TOTAL CELLS COUNTED % (AUTO) 100 %; WHITE BLOOD COUNT 6.8 10^3/uL (4.0-10.5)
[2019-02-09 16:00] LABS: ALKALINE PHOSPHATASE 53 U/L (38-126); ANION GAP 8 (5-19); ASPARTATE AMINO TRANSFERASE 18 U/L (14-36); BILIRUBIN,DIRECT 0.1 mg/dL (0.0-0.4); BILIRUBIN,TOTAL 0.2 mg/dL (0.2-1.3); BLOOD UREA NITROGEN 16 mg/dL (7-20); CALCIUM 9.3 mg/dL (8.4-10.2); CARBON DIOXIDE 28 mmol/L (22-30); CHLORIDE 101 mmol/L (98-107); GLUCOSE 229 mg/dL (75-110); POTASSIUM 4.4 mmol/L (3.6-5.0); TOTAL PROTEIN 6.4 g/dL (6.3-8.2)
--- NOTE | 2019-02-09 17:28 | ER Document Report ---
ED General - General Chief Complaint: Pedal Edema Stated Complaint: FEET/ANKLE SWELLING Time Seen by Provider: 02/09/19 14:51 Primary Care Provider: AGNES ATKINS MD [Primary Care Provider] - Follow up as needed Mode of Arrival: Wheelchair TRAVEL OUTSIDE OF THE [place] IN LAST 30 DAYS: No - HPI Patient complains to provider of: foot swelling Onset: This morning Onset/Duration: Gradual Quality of pain: No pain Severity: Mild Context: 54 year old female DM with peripheral neuropathy and tobacco abuse with PAD -mickie t smoking in last several days is here for evaluation of sts in feet. No pain, but poor feeling in feet. Broke right 4th and 5th toes about 3.5 weeks ago due to fall. Also has ulcer medial side right foot that is healing. Family concerned over sts that has developed. Exacerbated by: Denies Relieved by: Denies - Related Data Allergies/Adverse Reactions: No Known Allergies Allergy (Verified 02/09/19 14:05) Past Medical History - General Information source: Patient - Social History Smoking Status: Former Smoker Chew tobacco use (# tins/day): No Frequency of alcohol use: None Drug Abuse: None Family History: Arthritis, CAD, CVA, DM, Hyperlipidemia, Hypertension, Malignancy, Thyroid Disfunction Patient has suicidal ideation: No Patient has homicidal ideation: No - Past Medical History Cardiac Medical History: Reports: Hx Coronary Artery Disease, Hx Hypercholesterolemia, Hx Hypertension Denies: Hx Atrial Fibrillation, Hx Congestive Heart Failure, Hx Heart Attack, Hx Peripheral Vascular Disease, Hx Pulmonary Embolism, Hx Heart Murmur Pulmonary Medical History: Reports: Hx Asthma - no meds/inhalers, last ED visit > 5 years ago, Hx Bronchitis, Hx Pneumonia - denies hospitalization Denies: Hx COPD, Hx Respiratory Failure, Hx Sleep Apnea, Hx Tuberculosis Neurological Medical History: Reports: Hx Cerebrovascular Accident Endocrine Medical History: Reports: Hx Diabetes Mellitus Type 2, Hx Hypothyroidism. Denies: Hx Graves' Disease, Hx Hyperthyroidism Renal/ Medical History: Denies: Hx End Stage Renal Disease, Hx Kidney Stones, Hx Peritoneal Dialysis Malignancy Medical History: Denies: Hx Lung Cancer GI Medical History: Reports: Hx Gastroesophageal Reflux Disease. Denies: Hx Crohn's Disease, Hx Hiatal Hernia, Hx Irritable Bowel, Hx Liver Failure, Hx Pancreatitis, Hx Ulcer Musculoskeletal Medical History: Reports Hx Arthritis, Reports Hx Fibromyalgia - Dx'ed approx 15 years ago, Denies Hx Muscular Dystrophy, Reports Hx Musculoskeletal Deformity, Denies Hx Systemic Lupus Erythematosus Skin Medical History: Denies Hx MRSA Psychiatric Medical History: Reports: Hx Anxiety, Hx Attention Deficit Hyperactivity Disorder, Hx Depression, Hx Post Traumatic Stress Disorder Denies: Hx Bipolar Disorder, Hx Schizophrenia Traumatic Medical History: Reports: Hx Fractures Past Surgical History: Reports: Hx Section - x 2, Hx Cholecystectomy - open , Hx Oral Surgery, Hx Orthopedic Surgery - right knee replacement, Hx Tubal Ligation. Denies: Hx Appendectomy, Hx Bowel Surgery, Hx Colostomy, Hx Coronary Artery Bypass Graft, Hx Gastric Bypass Surgery, Hx Herniorrhaphy, Hx Hysterectomy, Hx Mastectomy, Hx Pacemaker, Hx Tonsillectomy - Immunizations Immunizations up to date: Yes Hx Diphtheria, Pertussis, Tetanus Vaccination: Yes Review of Systems - Review of Systems Constitutional: No symptoms reported EENT: No symptoms reported Cardiovascular: No symptoms reported Respiratory: No symptoms reported Gastrointestinal: No symptoms reported Genitourinary: No symptoms reported Female Genitourinary: No symptoms reported Musculoskeletal: See HPI Skin: No symptoms reported Hematologic/Lymphatic: No symptoms reported Neurological/Psychological: No symptoms reported Physical Exam - Vital signs Vitals: Temp Pulse Resp BP Pulse Ox 98.6 F 81 17 138/86 H 95 02/09/19 14:07 02/09/19 14:07 02/09/19 14:07 02/09/19 14:07 02/09/19 14:07 Interpretation: Normal - General General appearance: Appears well, Alert - HEENT Head: Normocephalic, Atraumatic Eyes: Normal Pupils: PERRL - Respiratory Respiratory status: No respiratory distress Chest status: Nontender Breath sounds: Normal Chest palpation: Normal - Cardiovascular Rhythm: Regular Heart sounds: Normal auscultation Murmur: No - Abdominal Inspection: Normal Distension: No distension Bowel sounds: Normal Tenderness: Nontender Organomegaly: No organomegaly - Back Back: Normal, Nontender - Extremities General upper extremity: Normal inspection, Nontender, Normal color, Normal ROM, Normal temperature General lower extremity: Normal inspection, Nontender, Edema - trace edema bi laterally perhaps a bit more on left. No redness or sts or deformity., Normal color, Normal ROM, Normal temperature. No: Sherin's sign - Neurological Neuro grossly intact: Yes Cognition: Normal Orientation: AAOx4 Simone Coma Scale Eye Opening: Spontaneous Chrisney Coma Scale Verbal: Oriented Simone Coma Scale Motor: Obeys Commands Simone Coma Scale Total: 15 Speech: Normal Motor strength normal: LUE, RUE, LLE, RLE Sensory: Normal - Psychological Associated symptoms: Normal affect, Normal mood - Skin Skin Temperature: Warm Skin Moisture: Dry Skin Color: Normal Course - Re-evaluation Re-evalutation: 02/09/19 17:28 MDM 54 year old DM with multiple comorbidities is here with foot and ankle swelling that is mild. No chest pain and no sob. Do not feel diuretics needed at this point. Will reccomend close follow up and continue with the wound clinic. Reviewed with pt and family. - Vital Signs Vital signs: Temp Pulse Resp BP Pulse Ox 98.6 F 81 17 138/86 H 95 02/09/19 14:07 02/09/19 14:07 02/09/19 14:07 02/09/19 14:07 02/09/19 14:07 - Laboratory Result Diagrams: 02/09/19 15:23 02/09/19 15:23 Laboratory results interpreted by me: 02/09/19 02/09/19 15:23 15:23 RDW 15.0 H Glucose 229 H Discharge - Discharge Clinical Impression: Diabetes mellitus Qualifiers: Diabetes mellitus type: type 2 Diabetes mellitus termite exterminator helper insulin use: without termite exterminator helper use Diabetes mellitus complication status: with hyperglycemia Qualified Code(s): E11.65 - Type 2 diabetes mellitus with hyperglycemia Condition: Good Disposition: HOME, SELF-CARE Instructions: Diabetes ([facility]), Edema, Peripheral ([facility]) Additional Instructions: Continue the follow up with the wound clinic. Rest. Please return here for any problems or any concerns including but not limited to redness or swelling or other concerns. Referrals: AGNES ATKINS MD [Primary Care Provider] - Follow up as needed
[2019-02-09 17:46] VITALS: BP 151/82
== END 2019-02-09 17:46 | disposition home or self-care (01) ==
LOC: ER 14:01
DX: E11.65 Type 2 diabetes mellitus with hyperglycemia (principal); E11.42 Type 2 diabetes mellitus with diabetic polyneuropathy; E11.51 Type 2 diabetes mellitus with diabetic peripheral angiopathy without gangrene; E11.621 Type 2 diabetes mellitus with foot ulcer; L97.519 Non-pressure chronic ulcer of other part of right foot with unspecified severity; Z87.891 Personal history of nicotine dependence; M25.473 Effusion, unspecified ankle; R60.0 Localized edema; I25.10 Atherosclerotic heart disease of native coronary artery without angina pectoris; I10 Essential (primary) hypertension; J45.909 Unspecified asthma, uncomplicated
CPT/HCPCS: 36415; 80053; 85025; 99283

== ENCOUNTER → 2019-02-15 | Outpatient (CLI) | payer OTHER ==
[2019-02-15 16:06] LABS: ABSOLUTE BASOPHILS # (AUTO) 0.1 10^3/uL (0.0-0.2); ABSOLUTE EOSINOPHILS # (AUTO) 0.1 10^3/uL (0.0-0.6); ABSOLUTE LYMPHOCYTES (AUTO) 2.6 10^3/uL (0.5-4.7); ABSOLUTE MONOCYTES (AUTO) 0.4 10^3/uL (0.1-1.4); ABSOLUTE NEUT (AUTO) 5.4 10^3/uL (1.7-8.2); BASOPHILS % (AUTO) 0.9 % (0-2); EOSINOPHILS % (AUTO) 0.6 % (0-6); HEMATOCRIT 39.1 % (36.0-47.0); LYMPHOCYTES % (AUTO) 30.2 % (13-45); MEAN CORPUSCULAR HEMOGLOBIN 29.1 pg (27.0-33.4); MEAN CORPUSCULAR HGB CONC 33.3 g/dL (32.0-36.0); MEAN CORPUSCULAR VOLUME 87 fl (80-97); MONOCYTES % (AUTO) 5.2 % (3-13); PLATELET COUNT 373 10^3/uL (150-450); RED BLOOD COUNT 4.48 10^6/uL (3.72-5.28); RED CELL DISTRIBUTION WIDTH 14.8 % (11.5-14.0); SEGMENTED NEUTROPHILS % (AUTO) 63.1 % (42-78); TOTAL CELLS COUNTED % (AUTO) 100 %; WHITE BLOOD COUNT 8.5 10^3/uL (4.0-10.5)
[2019-02-15 16:41] LABS: ALKALINE PHOSPHATASE 60 U/L (38-126); ANION GAP 10 (5-19); ASPARTATE AMINO TRANSFERASE 24 U/L (14-36); BILIRUBIN,DIRECT 0.1 mg/dL (0.0-0.4); BILIRUBIN,TOTAL 0.3 mg/dL (0.2-1.3); BLOOD UREA NITROGEN 18 mg/dL (7-20); CALCIUM 9.9 mg/dL (8.4-10.2); CARBON DIOXIDE 28 mmol/L (22-30); CHLORIDE 100 mmol/L (98-107); GLUCOSE 222 mg/dL (75-110); POTASSIUM 4.5 mmol/L (3.6-5.0); TOTAL PROTEIN 6.4 g/dL (6.3-8.2)
[2019-02-15 16:46] LABS: C-REACTIVE PROTEIN < 5.0 mg/L (<10.0)
[2019-02-15 16:48] LABS: ERYTHROCYTE SEDIMENTATION RATE 18 mm/hr (0-30)
== END ==
LOC: SP 13:48
PROVIDERS: ATTEND Surgery
DX: L97.512 Non-pressure chronic ulcer of other part of right foot with fat layer exposed (principal)
CPT/HCPCS: 36415; 80053; 83036; 85025; 85652; 86140; 93922; 93925; 93970

== ENCOUNTER 2019-02-17 21:04 | Emergency (ER) | payer OTHER ==
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
[2019-02-17 22:54] LABS: ABSOLUTE BASOPHILS # (AUTO) 0.1 10^3/uL (0.0-0.2); ABSOLUTE EOSINOPHILS # (AUTO) 0.1 10^3/uL (0.0-0.6); ABSOLUTE LYMPHOCYTES (AUTO) 3.5 10^3/uL (0.5-4.7); ABSOLUTE MONOCYTES (AUTO) 0.7 10^3/uL (0.1-1.4); ABSOLUTE NEUT (AUTO) 5.7 10^3/uL (1.7-8.2); BASOPHILS % (AUTO) 1.2 % (0-2); EOSINOPHILS % (AUTO) 0.7 % (0-6); HEMATOCRIT 37.2 % (36.0-47.0); HEMOGLOBIN 12.3 g/dL (12.0-15.5); LYMPHOCYTES % (AUTO) 34.5 % (13-45); MEAN CORPUSCULAR HEMOGLOBIN 28.9 pg (27.0-33.4); MEAN CORPUSCULAR HGB CONC 33.1 g/dL (32.0-36.0); MEAN CORPUSCULAR VOLUME 87 fl (80-97); MONOCYTES % (AUTO) 7.2 % (3-13); PLATELET COUNT 362 10^3/uL (150-450); RED BLOOD COUNT 4.26 10^6/uL (3.72-5.28); RED CELL DISTRIBUTION WIDTH 14.8 % (11.5-14.0); SEGMENTED NEUTROPHILS % (AUTO) 56.4 % (42-78); TOTAL CELLS COUNTED % (AUTO) 100 %; WHITE BLOOD COUNT 10.2 10^3/uL (4.0-10.5)
[2019-02-17 23:09] LABS: ALBUMIN 3.8 g/dL (3.5-5.0); ALKALINE PHOSPHATASE 53 U/L (38-126); ANION GAP 9 (5-19); ASPARTATE AMINO TRANSFERASE 20 U/L (14-36); BILIRUBIN,DIRECT 0.1 mg/dL (0.0-0.4); BILIRUBIN,TOTAL 0.3 mg/dL (0.2-1.3); BLOOD UREA NITROGEN 14 mg/dL (7-20); CALCIUM 9.1 mg/dL (8.4-10.2); CARBON DIOXIDE 28 mmol/L (22-30); CHLORIDE 98 mmol/L (98-107); GLUCOSE 248 mg/dL (75-110); TOTAL PROTEIN 6.1 g/dL (6.3-8.2)
[2019-02-17 23:10] LABS: ACETAMINOPHEN < 10 ug/mL (10-30); ALCOHOL < 10 mg/dL (NONE DETECTED); SALICYLATE < 1.0 mg/dL (2.0-20.0)
--- NOTE | 2019-02-17 23:38 | ER Document Report ---
ED General - General Chief Complaint: Psych Problem Stated Complaint: PSYCH-HEARING VOICES Time Seen by Provider: 02/17/19 21:59 Primary Care Provider: AGNES ATKINS MD [Primary Care Provider] - Follow up as needed Mode of Arrival: Ambulatory TRAVEL OUTSIDE OF THE [place] IN LAST 30 DAYS: No - HPI Notes: She presents with sister for concern of hearing voices saying she wants to hurt herself. She does not have a plan and has not set how she would do so. She has had psychiatric issues in the past morning herself as well as other people. - Related Data Allergies/Adverse Reactions: No Known Allergies Allergy (Verified 02/09/19 14:05) Past Medical History - General Information source: Patient - Social History Smoking Status: Former Smoker Family History: Arthritis, CAD, CVA, DM, Hyperlipidemia, Hypertension, Malignancy, Thyroid Disfunction Patient has suicidal ideation: Yes Patient has homicidal ideation: No - Past Medical History Cardiac Medical History: Reports: Hx Coronary Artery Disease, Hx Hypercholesterolemia, Hx Hypertension Denies: Hx Atrial Fibrillation, Hx Congestive Heart Failure, Hx Heart Attack, Hx Peripheral Vascular Disease, Hx Pulmonary Embolism, Hx Heart Murmur Pulmonary Medical History: Reports: Hx Asthma - no meds/inhalers, last ED visit > 5 years ago, Hx Bronchitis, Hx Pneumonia - denies hospitalization Denies: Hx COPD, Hx Respiratory Failure, Hx Sleep Apnea, Hx Tuberculosis Neurological Medical History: Reports: Hx Cerebrovascular Accident Endocrine Medical History: Reports: Hx Diabetes Mellitus Type 2, Hx Hypothyroidism. Denies: Hx Graves' Disease, Hx Hyperthyroidism Renal/ Medical History: Denies: Hx End Stage Renal Disease, Hx Kidney Stones, Hx Peritoneal Dialysis Malignancy Medical History: Denies: Hx Lung Cancer GI Medical History: Reports: Hx Gastroesophageal Reflux Disease. Denies: Hx Crohn's Disease, Hx Hiatal Hernia, Hx Irritable Bowel, Hx Liver Failure, Hx Pancreatitis, Hx Ulcer Musculoskeletal Medical History: Reports Hx Arthritis, Reports Hx Fibromyalgia - Dx'ed approx 15 years ago, Denies Hx Muscular Dystrophy, Reports Hx Musculoskeletal Deformity, Denies Hx Systemic Lupus Erythematosus Skin Medical History: Denies Hx MRSA Psychiatric Medical History: Reports: Hx Anxiety, Hx Attention Deficit Hyperactivity Disorder, Hx Depression, Hx Post Traumatic Stress Disorder Denies: Hx Bipolar Disorder, Hx Schizophrenia Traumatic Medical History: Reports: Hx Fractures Past Surgical History: Reports: Hx Section - x 2, Hx Cholecystectomy - open , Hx Oral Surgery, Hx Orthopedic Surgery - right knee replacement, Hx Tubal Ligation. Denies: Hx Appendectomy, Hx Bowel Surgery, Hx Colostomy, Hx Coronary Artery Bypass Graft, Hx Gastric Bypass Surgery, Hx Herniorrhaphy, Hx Hysterectomy, Hx Mastectomy, Hx Pacemaker, Hx Tonsillectomy - Immunizations Immunizations up to date: Yes Hx Diphtheria, Pertussis, Tetanus Vaccination: Yes Review of Systems - Review of Systems Constitutional: No symptoms reported EENT: No symptoms reported Cardiovascular: No symptoms reported Respiratory: No symptoms reported Gastrointestinal: No symptoms reported Genitourinary: No symptoms reported Female Genitourinary: No symptoms reported Musculoskeletal: No symptoms reported Skin: No symptoms reported Hematologic/Lymphatic: No symptoms reported Neurological/Psychological: See HPI Physical Exam - Vital signs Vitals: Temp Pulse Resp BP Pulse Ox 99.2 F 72 20 126/73 H 93 02/17/19 21:15 02/17/19 21:15 02/17/19 21:15 02/17/19 21:15 02/17/19 21:15 - General General appearance: Appears well, Alert - HEENT Head: Normocephalic, Atraumatic Eyes: Normal Conjunctiva: Normal Cornea: Normal Extraocular movements intact: Yes Pupils: PERRL - Respiratory Respiratory status: No respiratory distress Chest status: Nontender Breath sounds: Normal Chest palpation: Normal - Cardiovascular Rhythm: Regular Heart sounds: Normal auscultation Murmur: No - Abdominal Inspection: Normal Distension: No distension Bowel sounds: Normal - Back Back: Normal, Nontender - Extremities General upper extremity: Normal inspection, Normal ROM General lower extremity: Other - Small diabetic pressure ulcer medial aspect of mid right foot well-appearing no erythema around to suggest cellulitis or infection - Neurological Neuro grossly intact: Yes Cognition: Normal Orientation: AAOx4 - Psychological Associated symptoms: Normal affect Course - Re-evaluation Re-evalutation: 02/17/19 23:37 Patient medically clear at this time will have nursing staff place her daily meds in the 02/17/19 23:38 - Vital Signs Vital signs: Temp Pulse Resp BP Pulse Ox 97.4 F 75 20 134/69 H 97 02/22/19 08:37 02/22/19 08:37 02/21/19 23:06 02/22/19 08:37 02/22/19 08:37 - Laboratory Result Diagrams: 02/17/19 22:40 02/17/19 22:40 Laboratory results interpreted by me: 02/17/19 02/17/19 02/17/19 22:40 22:40 22:40 RDW 14.8 H Sodium 135.0 L Glucose 248 H POC Glucose Total Protein 6.1 L TSH 6.77 H Salicylates < 1.0 L Acetaminophen < 10 L 02/18/19 02/18/19 02/19/19 09:00 17:05 08:10 RDW Sodium Glucose POC Glucose 147 H 248 H 138 H Total Protein TSH Salicylates Acetaminophen 02/19/19 02/20/19 02/21/19 12:52 11:37 05:34 RDW Sodium Glucose POC Glucose 117 H 162 H 130 H Total Protein TSH Salicylates Acetaminophen 02/21/19 02/22/19 15:04 04:47 RDW Sodium Glucose POC Glucose 151 H 176 H Total Protein TSH Salicylates Acetaminophen Discharge - Discharge Clinical Impression: Hearing voices, Suicidal ideation Condition: Good Disposition: PSYCH HOSP/UNIT Referrals: AGNES ATKINS MD [Primary Care Provider] - Follow up as needed
[2019-02-18 02:11] LABS: APPEARANCE,URINE CLEAR; BILIRUBIN,URINE NEGATIVE (NEGATIVE); COLOR,URINE COLORLESS; GLUCOSE, URINE NEGATIVE (NEGATIVE); KETONES,URINE NEGATIVE (NEGATIVE); LEUKOCYTE ESTERASE,URINE NEGATIVE (NEGATIVE); NITRITE,URINE NEGATIVE (NEGATIVE); PROTEIN,URINE NEGATIVE (NEGATIVE); URINE SPECIFIC GRAVITY 1.002; UROBILINOGEN,URINE NEGATIVE mg/dL (<2.0)
[2019-02-18 02:28] LABS: URINE AMPHETAMINES SCREEN NEGATIVE; URINE BARBITURATES SCREEN NEGATIVE; URINE BENZODIAZEPINES SCREEN NEGATIVE; URINE COCAINE SCREEN NEGATIVE; URINE MARIJUANA (THC) SCREEN NEGATIVE; URINE METHADONE SCREEN NEGATIVE; URINE PHENCYCLIDINE SCREEN NEGATIVE
--- NOTE | 2019-02-18 06:40 | EKG REPORT ---
SEVERITY:- NORMAL ECG - SINUS RHYTHM : Confirmed by: Derek Zazueta MD 18-Feb-2019 06:39:12
--- NOTE | 2019-02-18 09:57 | ER Document Report ---
Doctor's Note Notes: 02/18/19 09:56 I have evaluated this pt. this am and she has no c/o at this time. She feels all of her needs are being met and her physical exam is normal. She is awaiting disposition per mental health.
[2019-02-18] MEDS ORDERED: ACETAMINOPHEN 325 MG TABLET PO ONE ×2 (09:59→14:08)
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
[2019-02-18] MEDS: GABAPENTIN 300 MG CAPSULE PO SCH ×2 (14:57→22:43)
[2019-02-18] MEDS: METFORMIN HCL 500 MG TABLET PO SCH (15:06)
[2019-02-18] MEDS: DIVALPROEX SODIUM 250 MG TAB.SR.24H PO SCH (15:06)
[2019-02-18 16:59] LABS: FREE T3 3.77 pg/mL (2.77-5.27); FREE T4 (FREE THYROXINE) 0.92 ng/dL (0.78-2.19)
[2019-02-18 17:13] LABS: THYROID STIMULATING HORMONE 6.77 uIU/mL (0.47-4.68)
[2019-02-18] MEDS ORDERED: LORAZEPAM 1 MG TABLET PO ONE (17:24)
[2019-02-19] MEDS: DIVALPROEX SODIUM 250 MG TAB.SR.24H PO SCH ×2 (06:39→18:23)
[2019-02-19] MEDS: GABAPENTIN 300 MG CAPSULE PO SCH ×2 (06:39→14:57)
[2019-02-19] MEDS: METFORMIN HCL 500 MG TABLET PO SCH ×2 (06:39→18:22)
[2019-02-19] MEDS: LEVOTHYROXINE SODIUM 0.05 MG TABLET PO SCH (09:37)
[2019-02-19] MEDS: ATORVASTATIN CALCIUM 80 MG TABLET PO SCH (09:37)
--- NOTE | 2019-02-19 10:18 | ER Document Report ---
Doctor's Note Notes: 02/19/19 10:17 I have evaluated this pt. this am And she has no c/o. She feels all of her needs are being met and her physical exam is normal. She is awaiting placement per mental health.
[2019-02-20] MEDS: GABAPENTIN 300 MG CAPSULE PO SCH ×4 (00:28→23:18)
[2019-02-20] MEDS: METFORMIN HCL 500 MG TABLET PO SCH ×2 (06:17→10:40)
[2019-02-20] MEDS: DIVALPROEX SODIUM 250 MG TAB.SR.24H PO SCH ×2 (06:17→18:41)
--- NOTE | 2019-02-20 10:11 | ER Document Report ---
Doctor's Note Notes: 02/20/19 10:10 Rounds: Chart reviewed and patient interviewed. Patient apparently is hearing voices and expressed some suicidal thoughts, but she is done this in the past, according to the chart. She is also a diabetic on metformin, 250 mg daily. Blood sugar was 248. Other labs are all essentially normal. Vital signs are all essentially normal. Patient appears to be medically stable for transfer or discharge. Quentin Tapia MD
[2019-02-20] MEDS: ATORVASTATIN CALCIUM 80 MG TABLET PO SCH (10:39)
[2019-02-20] MEDS: LEVOTHYROXINE SODIUM 0.05 MG TABLET PO SCH (10:39)
[2019-02-20] MEDS ORDERED: ACETAMINOPHEN 325 MG TABLET PO ONE (18:02)
[2019-02-21] MEDS: GABAPENTIN 300 MG CAPSULE PO SCH ×3 (05:47→23:26)
[2019-02-21] MEDS: DIVALPROEX SODIUM 250 MG TAB.SR.24H PO SCH ×2 (05:47→18:38)
[2019-02-21] MEDS: METFORMIN HCL 500 MG TABLET PO SCH (09:26)
[2019-02-21] MEDS: ATORVASTATIN CALCIUM 80 MG TABLET PO SCH (09:27)
[2019-02-21] MEDS: LEVOTHYROXINE SODIUM 0.05 MG TABLET PO SCH (09:27)
--- NOTE | 2019-02-21 10:13 | ER Document Report ---
Doctor's Note Notes: 02/21/19 10:07 Rounds: Chart reviewed and patient interviewed. Patient says she is feeling much better. Looks well. Patient being evaluated for hearing voices and feeling suicidal which she says is no longer taking place. Is also a diabetic on oral medications. Vital signs are all essentially normal. Patient appears to be medically stable for transfer or discharge. Quentin Tapia MD
[2019-02-21] MEDS ORDERED: ACETAMINOPHEN 325 MG TABLET PO ONE (14:16)
[2019-02-21] MEDS ORDERED: FAMOTIDINE 20 MG TABLET PO ONE (17:44)
[2019-02-21] MEDS ORDERED: MAG HYDROX/AL HYDROX/SIMETH SUSP 30 ML UDCUP PO ONE (17:45)
--- NOTE | 2019-02-21 22:26 | EKG REPORT ---
SEVERITY:- BORDERLINE ECG - SINUS RHYTHM NONSPECIFIC LATERAL ST-T CHANGES EARLY PRECORDIAL TRANSITION, NEED TO R/O [place]. : Confirmed by: Derek Zazueta MD 21-Feb-2019 22:26:05
[2019-02-22] MEDS ORDERED: ACETAMINOPHEN 325 MG TABLET PO ONE ×3 (05:12→18:30)
[2019-02-22] MEDS: DIVALPROEX SODIUM 250 MG TAB.SR.24H PO SCH ×2 (05:24→18:37)
[2019-02-22] MEDS: GABAPENTIN 300 MG CAPSULE PO SCH ×3 (05:42→22:53)
--- NOTE | 2019-02-22 09:57 | ER Document Report ---
Doctor's Note Notes: 02/22/19 09:56 I have evaluated this pt. this am and she has no c/o at this time. She feels all of her needs are being met and her physical exam is normal. She is awaiting disposition per mental health.
[2019-02-22] MEDS: ATORVASTATIN CALCIUM 80 MG TABLET PO SCH (10:37)
[2019-02-22] MEDS: METFORMIN HCL 500 MG TABLET PO SCH (10:38)
[2019-02-22] MEDS: LEVOTHYROXINE SODIUM 0.05 MG TABLET PO SCH (10:38)
[2019-02-22] MEDS ORDERED: DIPHENHYDRAMINE HCL 50 MG CAPSULE PO ONE (18:31)
[2019-02-23] MEDS: DIVALPROEX SODIUM 250 MG TAB.SR.24H PO SCH ×2 (06:11→17:26)
[2019-02-23] MEDS: GABAPENTIN 300 MG CAPSULE PO SCH ×3 (06:11→21:30)
[2019-02-23] MEDS: METFORMIN HCL 500 MG TABLET PO SCH (09:21)
[2019-02-23] MEDS: ATORVASTATIN CALCIUM 80 MG TABLET PO SCH (09:21)
[2019-02-23] MEDS: LEVOTHYROXINE SODIUM 0.05 MG TABLET PO SCH (09:21)
--- NOTE | 2019-02-23 13:35 | ER Document Report ---
Doctor's Note Notes: Rounds: Chart reviewed and patient interviewed. Patient is being evaluated and treated for suicidal ideation. She is also was hearing voices. Vital signs remained stable. No new labs to review. Patient appears to be medically stable for transfer or discharge. Quentin Tapia MD 02/23/19 15:13 Patient is requesting something for anxiety. We will give her some Vistaril. Her only medication currently is valproic. Patient's relative is picking her up tomorrow. Patient has been cleared by psych.
[2019-02-23] MEDS ORDERED: HYDROXYZINE PAMOATE 50 MG CAPSULE PO PRN (15:14)
[2019-02-23] MEDS ORDERED: HYDROXYZINE PAMOATE 50 MG CAPSULE PO ONE (15:15)
[2019-02-24] MEDS: DIVALPROEX SODIUM 250 MG TAB.SR.24H PO SCH ×2 (05:43→17:37)
[2019-02-24] MEDS: GABAPENTIN 300 MG CAPSULE PO SCH ×3 (05:43→21:49)
[2019-02-24] MEDS: ATORVASTATIN CALCIUM 80 MG TABLET PO SCH (09:29)
[2019-02-24] MEDS: METFORMIN HCL 500 MG TABLET PO SCH (09:31)
[2019-02-24] MEDS: LEVOTHYROXINE SODIUM 0.05 MG TABLET PO SCH (09:32)
--- NOTE | 2019-02-24 09:33 | ER Document Report ---
Doctor's Note Notes: 02/24/19 09:32 Patient here initially for hallucinations and suicidal ideations. Labs and vital signs as recorded. Awaiting psychiatric evaluation and disposition.
[2019-02-25] MEDS: DIVALPROEX SODIUM 250 MG TAB.SR.24H PO SCH ×2 (05:50→17:33)
[2019-02-25] MEDS: GABAPENTIN 300 MG CAPSULE PO SCH ×2 (05:50→14:07)
[2019-02-25 08:22] VITALS: BP 126/74
[2019-02-25] MEDS: METFORMIN HCL 500 MG TABLET PO SCH (09:02)
[2019-02-25] MEDS: ATORVASTATIN CALCIUM 80 MG TABLET PO SCH (09:02)
[2019-02-25] MEDS: LEVOTHYROXINE SODIUM 0.05 MG TABLET PO SCH (09:02)
[2019-02-25] MEDS ORDERED: ACETAMINOPHEN 325 MG TABLET ONE (16:06)
--- NOTE | 2019-02-25 16:52 | ER Document Report ---
Doctor's Note Notes: 02/25/19 16:50 Patient seen and examined. She seems to be stable on new medications. She has no complaints or concerns. She has family members here to come get her. We have worked out a way to help with prescription coverage. The patient states she is just anxious to go home. On exam heart is regular rate and rhythm, lungs are clear station bilaterally. Skin is warm and dry. Affect is positive and she is cooperative with examiner. Patient will be discharged with outpatient follow-up. She is to continue medications as prescribed.
== END 2019-02-25 17:38 ==
LOC: ER 21:04
DX: F43.10 Post-traumatic stress disorder, unspecified (principal); F32.9 Major depressive disorder, single episode, unspecified; R44.0 Auditory hallucinations; Z79.899 Other long term (current) drug therapy; Z87.891 Personal history of nicotine dependence; I25.10 Atherosclerotic heart disease of native coronary artery without angina pectoris; I10 Essential (primary) hypertension; J45.909 Unspecified asthma, uncomplicated; E11.9 Type 2 diabetes mellitus without complications
CPT/HCPCS: 93005 ×2; 99285; 36415; 84439; 82962; 80307 ×4; 84443; 85025; 80053; 81001; 84481; 93010 ×2; J3490 ×8

== ENCOUNTER 2019-02-26 12:12 | Emergency (ER) | payer OTHER ==
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
[2019-02-26 12:46] LABS: HEMATOCRIT 40.3 % (36.0-47.0); HEMOGLOBIN 13.3 g/dL (12.0-15.5); MEAN CORPUSCULAR HEMOGLOBIN 29.2 pg (27.0-33.4); MEAN CORPUSCULAR VOLUME 89 fl (80-97); PLATELET COUNT 373 10^3/uL (150-450); RED BLOOD COUNT 4.55 10^6/uL (3.72-5.28); RED CELL DISTRIBUTION WIDTH 14.6 % (11.5-14.0); WHITE BLOOD COUNT 9.6 10^3/uL (4.0-10.5)
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
[2019-02-26 13:07] LABS: ABSOLUTE LYMPHOCYTES# (MANUAL) 2.1 10^3/uL (0.5-4.7); ABSOLUTE MONOCYTES # (MANUAL) 0.7 10^3/uL (0.1-1.4); BASOPHILS % (MANUAL) 1 % (0-2); EOSINOPHILS % (MANUAL) 0 % (0-6); LYMPHOCYTES % (MANUAL) 22 % (13-45); MONOCYTES % (MANUAL) 7 % (3-13); SEGMENTED NEUTROPHILS % (MAN) 70 % (42-78); TOTAL CELLS COUNTED 100
[2019-02-26 13:08] LABS: ANISOCYTOSIS SLIGHT; OVALOCYTES SLIGHT; PLATELET COMMENT ADEQUATE; POIKILOCYTOSIS SLIGHT
[2019-02-26 13:09] LABS: APPEARANCE,URINE CLEAR; BILIRUBIN,URINE NEGATIVE (NEGATIVE); COLOR,URINE STRAW; GLUCOSE, URINE 50 mg/dL (NEGATIVE); KETONES,URINE TRACE mg/dL (NEGATIVE); LEUKOCYTE ESTERASE,URINE NEGATIVE (NEGATIVE); NITRITE,URINE NEGATIVE (NEGATIVE); PROTEIN,URINE NEGATIVE (NEGATIVE); UROBILINOGEN,URINE NEGATIVE mg/dL (<2.0)
[2019-02-26 13:09] LABS: ALBUMIN 4.3 g/dL (3.5-5.0); ALKALINE PHOSPHATASE 69 U/L (38-126); ANION GAP 14 (5-19); ASPARTATE AMINO TRANSFERASE 25 U/L (14-36); BILIRUBIN,DIRECT 0.2 mg/dL (0.0-0.4); BILIRUBIN,TOTAL 0.3 mg/dL (0.2-1.3); BLOOD UREA NITROGEN 15 mg/dL (7-20); CALCIUM 9.9 mg/dL (8.4-10.2); CARBON DIOXIDE 23 mmol/L (22-30); CHLORIDE 101 mmol/L (98-107); GLUCOSE 252 mg/dL (75-110); POTASSIUM 4.6 mmol/L (3.6-5.0); TOTAL PROTEIN 6.9 g/dL (6.3-8.2)
[2019-02-26 13:11] LABS: ACETAMINOPHEN < 10 ug/mL (10-30); ALCOHOL < 10 mg/dL (NONE DETECTED); SALICYLATE < 1.0 mg/dL (2.0-20.0)
[2019-02-26 13:21] LABS: URINE AMPHETAMINES SCREEN NEGATIVE; URINE BARBITURATES SCREEN NEGATIVE; URINE BENZODIAZEPINES SCREEN NEGATIVE; URINE COCAINE SCREEN NEGATIVE; URINE MARIJUANA (THC) SCREEN NEGATIVE; URINE METHADONE SCREEN NEGATIVE; URINE PHENCYCLIDINE SCREEN NEGATIVE
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
[2019-02-26] MEDS: HYDROXYZINE PAMOATE 50 MG CAPSULE PO SCH ×2 (15:07→22:00)
[2019-02-26] MEDS ORDERED: ACETAMINOPHEN 325 MG TABLET PO ONE (17:26)
[2019-02-26] MEDS: DIVALPROEX SODIUM 250 MG TABLET.DR PO SCH (22:01)
[2019-02-27] MEDS: HYDROXYZINE PAMOATE 50 MG CAPSULE PO SCH ×4 (03:10→21:42)
--- NOTE | 2019-02-27 09:02 | EKG REPORT ---
SEVERITY:- BORDERLINE ECG - SINUS RHYTHM BORDERLINE T WAVE ABNORMALITIES : Confirmed by: Kyle Vallejo 27-Feb-2019 09:01:37
[2019-02-27] MEDS: DIVALPROEX SODIUM 250 MG TABLET.DR PO SCH ×2 (09:17→21:42)
--- NOTE | 2019-02-27 10:26 | ER Document Report ---
Doctor's Note Notes: 02/27/19 10:25 I have evaluated this pt. this am and she has no c/o at this time. She feels all of her needs are being met and her physical exam is normal. She is awaiting disposition per mental health.
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
[2019-02-27] MEDS ORDERED: ACETAMINOPHEN 325 MG TABLET PO ONE (18:18)
[2019-02-27] MEDS: METFORMIN HCL 500 MG TABLET PO SCH (21:42)
[2019-02-28] MEDS ORDERED: ACETAMINOPHEN 325 MG TABLET PO ONE (02:42)
[2019-02-28] MEDS: HYDROXYZINE PAMOATE 50 MG CAPSULE PO SCH ×4 (02:49→21:21)
[2019-02-28] MEDS: METFORMIN HCL 500 MG TABLET PO SCH ×2 (09:32→21:21)
[2019-02-28] MEDS: DIVALPROEX SODIUM 250 MG TABLET.DR PO SCH ×2 (09:32→21:21)
[2019-02-28] MEDS ORDERED: HYDROXYZINE PAMOATE 50 MG CAPSULE PO PRN (13:31)
--- NOTE | 2019-02-28 13:34 | ER Document Report ---
Doctor's Note Notes: 02/28/19 13:33 Patient has been medically and psychiatrically cleared. She remains in the emergency department as a social hold. Her complaints are that she has some chronic back pain however she has not been getting her Neurontin as scheduled. I have now ordered her usual Lipitor, Neurontin, Vistaril, Synthroid and met formin. Patient also tells me she is supposed to be taking 40 units of some insulin at night which she thinks is Lantus. I have no record of this in the computer. I have asked pharmacy to perform a medication reconciliation. GENERAL: Alert, interacts well. No acute distress. HEAD: Normocephalic, atraumatic EYES: Pupils equal, round and reactive to light, extraocular movements intact. ENT: Oral mucosa moist, tongue midline. NECK: Full range of motion, supple, trachea midline. LUNGS: no respiratory distress. EXTREMITIES: Moves all 4 extremities spontaneously, no edema. No cyanosis. NEUROLOGICAL: Alert and oriented x3, normal speech. PSYCH: Normal mood, normal affect. SKIN: Warm, Dry, normal turgor, no rashes or lesions noted.
[2019-02-28] MEDS: ACETAMINOPHEN 325 MG TABLET PO PRN (13:38)
[2019-02-28] MEDS: GABAPENTIN 300 MG CAPSULE PO SCH ×2 (13:38→21:22)
[2019-02-28] MEDS: LEVOTHYROXINE SODIUM 0.05 MG TABLET PO SCH (13:38)
[2019-02-28] MEDS: ATORVASTATIN CALCIUM 80 MG TABLET PO SCH (13:38)
[2019-03-01] MEDS: HYDROXYZINE PAMOATE 50 MG CAPSULE PO SCH ×4 (04:29→22:00)
[2019-03-01] MEDS: GABAPENTIN 300 MG CAPSULE PO SCH ×3 (05:34→22:01)
[2019-03-01] MEDS: ACETAMINOPHEN 325 MG TABLET PO PRN (09:17)
[2019-03-01] MEDS: LEVOTHYROXINE SODIUM 0.05 MG TABLET PO SCH (09:17)
[2019-03-01] MEDS: ATORVASTATIN CALCIUM 80 MG TABLET PO SCH (09:18)
[2019-03-01] MEDS: METFORMIN HCL 500 MG TABLET PO SCH ×2 (09:18→22:01)
[2019-03-01] MEDS: DIVALPROEX SODIUM 250 MG TABLET.DR PO SCH ×2 (09:19→22:01)
[2019-03-01] MEDS ORDERED: LOPERAMIDE HCL 2 MG CAPSULE PO ONE (13:17)
--- NOTE | 2019-03-01 15:39 | ER Document Report ---
Doctor's Note Notes: 03/01/19 15:38 The patient has been medically and psychiatrically cleared for disposition and currently is on social hold waiting for placement. She has begun to have diarrhea today, so stool culture, C&S and C. difficile was obtained. She was placed on a course of Keflex on 01/21/2019 and again on 02/01/2019. She did rece trung 1 dose of Imodium. 03/01/19 18:43 At this time the stool specimen was negative for WBCs, C. difficile is waiting to be run later this evening.
[2019-03-02] MEDS: HYDROXYZINE PAMOATE 50 MG CAPSULE PO SCH ×5 (03:47→22:29)
[2019-03-02] MEDS: GABAPENTIN 300 MG CAPSULE PO SCH ×3 (05:48→22:30)
--- NOTE | 2019-03-02 08:39 | ER Document Report ---
Doctor's Note Notes: 03/02/19 08:38 Asked by nursing staff to rectify a Vistaril order. I have canceled the as needed order, she will maintain her scheduled Vistaril. When going through the chart, noted that patient's Accu-Cheks have been in the mid 200s. She is already on schedule metformin and a diabetic diet. There is a mention that she may be on Lantus at night although this is not in her MAR. I am going to add on a dose of Lantus starting at 10 units at night and this can be adjusted based on her response. I have also change Accu-Cheks to before meals and at night 03/02/19 08:39
[2019-03-02] MEDS: DIVALPROEX SODIUM 250 MG TABLET.DR PO SCH ×2 (09:39→22:30)
[2019-03-02] MEDS: ATORVASTATIN CALCIUM 80 MG TABLET PO SCH (09:40)
[2019-03-02] MEDS: LEVOTHYROXINE SODIUM 0.05 MG TABLET PO SCH (09:41)
[2019-03-02] MEDS: METFORMIN HCL 500 MG TABLET PO SCH ×2 (09:41→22:33)
[2019-03-02] MEDS: ACETAMINOPHEN 325 MG TABLET PO PRN (13:52)
[2019-03-02] MEDS ORDERED: INSULIN GLARGINE,HUM.REC.ANLOG 1,000 UNIT/10 ML VIAL SUBCUT SCH (22:00)
[2019-03-03] MEDS: HYDROXYZINE PAMOATE 50 MG CAPSULE PO SCH ×2 (03:16→08:54)
[2019-03-03] MEDS: GABAPENTIN 300 MG CAPSULE PO SCH (05:45)
[2019-03-03] MEDS: LEVOTHYROXINE SODIUM 0.05 MG TABLET PO SCH (09:00)
[2019-03-03] MEDS: METFORMIN HCL 500 MG TABLET PO SCH (09:00)
[2019-03-03] MEDS: ATORVASTATIN CALCIUM 80 MG TABLET PO SCH (09:00)
[2019-03-03] MEDS: DIVALPROEX SODIUM 250 MG TABLET.DR PO SCH (09:00)
[2019-03-03 10:18] VITALS: BP 132/77
--- NOTE | 2019-03-03 10:24 | ER Document Report ---
Doctor's Note Notes: 03/03/19 10:22 PHYSICAL EXAMINATION: GENERAL: Appears well, healthy, well-nourished, no acute distress. LUNGS: Equal breath sounds bilaterally and clear to auscultation. No wheezes rales or rhonchi. CARDIOVASCULAR: S1-S2, regular rate, regular rhythm. Radial pulses 2+, normal. ABDOMEN: Normoactive bowel sounds. Soft, nontender, no guarding, no rebound tenderness, and no masses palpated. PSYCH: Normal mood, normal affect. Patient is ready for discharge. She is able to get a ride home. See discharge instructions from yesterday. Follow-up precautions were given. Verbal discharge instructions were given to the patient. They verbalized understanding. They are stable for discharge.
--- NOTE | 2019-03-03 10:25 | ER Document Report ---
Doctor's Note Notes: 03/02/19 12:22 PHYSICAL EXAMINATION: GENERAL: Appears well, healthy, well-nourished, no acute distress. LUNGS: Equal breath sounds bilaterally and clear to auscultation. No wheezes rales or rhonchi. CARDIOVASCULAR: S1-S2, regular rate, regular rhythm. Radial pulses 2+, normal. ABDOMEN: Normoactive bowel sounds. Soft, nontender, no guarding, no rebound tenderness, and no masses palpated. PSYCH: Normal mood, normal affect. Patient is waiting for the ochoa to her house. I was updated by QUEENIE Gaytan, caser in that the patient may go home tomorrow.
== END 2019-03-03 10:49 | disposition home or self-care (01) ==
LOC: ER 12:12
DX: R41.82 Altered mental status, unspecified (principal); F43.10 Post-traumatic stress disorder, unspecified; F32.9 Major depressive disorder, single episode, unspecified; I25.10 Atherosclerotic heart disease of native coronary artery without angina pectoris; E78.00 Pure hypercholesterolemia, unspecified; I10 Essential (primary) hypertension; E11.9 Type 2 diabetes mellitus without complications; E03.9 Hypothyroidism, unspecified; Z86.74 Personal history of sudden cardiac arrest; Z90.49 Acquired absence of other specified parts of digestive tract; Z96.651 Presence of right artificial knee joint; Z98.51 Tubal ligation status
CPT/HCPCS: 93005; 99285; 36415; 87045; 89055; 87205; 82962; 80307 ×4; 85025; 80053; 81001; 93010; J1815

== ENCOUNTER 2019-10-16 12:21 | Emergency (ER) | payer MEDICAID, OTHER ==
[2019-10-16] MEDS ORDERED: CYCLOBENZAPRINE HCL 10 MG TABLET PO ONE (12:50)
[2019-10-16] MEDS ORDERED: HYDROCODONE/ACETAMINOPHEN 5-325 MG TABLET PO ONE (12:50)
--- NOTE | 2019-10-16 12:51 | ER Document Report ---
ED Hip Pain/Injury - General Chief Complaint: Hip Pain Stated Complaint: FALL/HIP PAIN Time Seen by Provider: 10/16/19 12:28 Primary Care Provider: AGNES ATKINS MD [HONORARY] - Follow up as needed Mode of Arrival: Medic Information source: Patient Notes: 4-year-old female past medical history significant for Parkinson's, diabetes, glaucoma presents to the emergency room complaining of low back pain for the past 3 days. States she has been taking ibuprofen for her back pain with minimal relief. States she was getting dressed to come to the emergency room wh en she turned lost her balance fell and landed on her right hip. Denies hitting her head, no loss of consciousness. Denies any dizziness, chest pain, no shortness of breath prior to the fall. Patient states she was finally able to get up and called 911. History of chronic back pain with sciatica has been taking ibuprofen without relief. Describes the pain in her back as stabbing that radiates down her right leg. Denies any loss control of her bowels or bladder, no saddle anesthesia, no red flags. Describes the pain in her right hip as sharp and stabbing per nurses notes and EMS she was ambulatory on the scene. TRAVEL OUTSIDE OF THE [place] IN LAST 30 DAYS: No - Related Data Allergies/Adverse Reactions: No Known Allergies Allergy (Verified 02/09/19 14:05) Past Medical History - General Information source: Patient - Social History Smoking Status: Current Every Day Smoker Frequency of alcohol use: None Drug Abuse: None Lives with: Alone Family History: Arthritis, CAD, CVA, DM, Hyperlipidemia, Hypertension, Malignancy, Thyroid Disfunction Patient has homicidal ideation: No - Past Medical History Cardiac Medical History: Reports: Hx Coronary Artery Disease, Hx Hypercholesterolemia, Hx Hypertension Denies: Hx Atrial Fibrillation, Hx Congestive Heart Failure, Hx Heart Attack, Hx Peripheral Vascular Disease, Hx Pulmonary Embolism, Hx Heart Murmur Pulmonary Medical History: Reports: Hx Asthma - no meds/inhalers, last ED visit > 5 years ago, Hx Bronchitis, Hx Pneumonia - denies hospitalization Denies: Hx COPD, Hx Respiratory Failure, Hx Sleep Apnea, Hx Tuberculosis Neurological Medical History: Reports: Hx Cerebrovascular Accident Endocrine Medical History: Reports: Hx Diabetes Mellitus Type 2, Hx Hypothyroidism. Denies: Hx Graves' Disease, Hx Hyperthyroidism Renal/ Medical History: Denies: Hx End Stage Renal Disease, Hx Kidney Stones, Hx Peritoneal Dialysis Malignancy Medical History: Denies: Hx Lung Cancer GI Medical History: Reports: Hx Gastroesophageal Reflux Disease. Denies: Hx Crohn's Disease, Hx Hiatal Hernia, Hx Irritable Bowel, Hx Liver Failure, Hx Pancreatitis, Hx Ulcer Musculoskeletal Medical History: Reports Hx Arthritis, Reports Hx Fibromyalgia - Dx'ed approx 15 years ago, Denies Hx Muscular Dystrophy, Reports Hx Musculoskeletal Deformity, Denies Hx Systemic Lupus Erythematosus Skin Medical History: Denies Hx MRSA Psychiatric Medical History: Reports: Hx Anxiety, Hx Attention Deficit Hyperactivity Disorder, Hx Depression, Hx Post Traumatic Stress Disorder Denies: Hx Bipolar Disorder, Hx Schizophrenia Traumatic Medical History: Reports: Hx Fractures Past Surgical History: Reports: Hx Section - x 2, Hx Cholecystectomy - open , Hx Oral Surgery, Hx Orthopedic Surgery - right knee replacement, Hx Tubal Ligation. Denies: Hx Appendectomy, Hx Bowel Surgery, Hx Colostomy, Hx Coronary Artery Bypass Graft, Hx Gastric Bypass Surgery, Hx Herniorrhaphy, Hx Hysterectomy, Hx Mastectomy, Hx Pacemaker, Hx Tonsillectomy - Immunizations Immunizations up to date: Yes Hx Diphtheria, Pertussis, Tetanus Vaccination: Yes Review of Systems - Review of Systems Constitutional: No symptoms reported EENT: No symptoms reported Cardiovascular: No symptoms reported Respiratory: No symptoms reported Gastrointestinal: No symptoms reported Genitourinary: No symptoms reported Musculoskeletal: Back pain, Joint pain Skin: No symptoms reported Neurological/Psychological: No symptoms reported -: Yes All other systems reviewed and negative Physical Exam - Vital signs Vitals: Temp Pulse Resp BP Pulse Ox 98.7 F 94 16 113/77 96 10/16/19 12:30 10/16/19 12:30 10/16/19 12:30 10/16/19 12:30 10/16/19 12:30 - General General appearance: Appears well, Alert In distress: Mild - HEENT Head: Normocephalic, Atraumatic Neck: Normal, Supple - Respiratory Respiratory status: No respiratory distress Chest status: Nontender Breath sounds: Normal Chest palpation: Normal - Cardiovascular Rhythm: Regular Heart sounds: Normal auscultation Murmur: No - Abdominal Inspection: Normal Distension: No distension Bowel sounds: Normal Tenderness: Nontender Organomegaly: No organomegaly - Back Back: Tender - Tender on palpation from L4-S1. There is tenderness of the right sciatic notch. There is lower lumbar muscle spasms palpated. There is no obvious deformity noted., Vertebra tenderness. No: CVA tenderness - Extremities General upper extremity: Normal inspection Hip: Tender, Pain with ROM. No: Deformity, Unable to bear weight - Right hip is tender over the right iliac crest. There is painful range of motion with ex ternal rotation to the hip. There is no shortening or rotation of the right leg. There is no obvious deformity palpated. - Neurological Neuro grossly intact: Yes Cognition: Normal Orientation: AAOx4 [place] Coma Scale Eye Opening: Spontaneous [place] Coma Scale Verbal: Oriented Simone Coma Scale Motor: Obeys Commands [place] Coma Scale Total: 15 Speech: Normal Motor strength normal: LUE, RUE, LLE, RLE Sensory: Normal - Skin Skin Temperature: Warm Skin Moisture: Dry Skin Color: Normal Course - Re-evaluation Re-evalutation: 10/16/19 13:40 Patient is resting comfortably with decreased pain.. Negative x-ray results with patient. She is able to ambulate without difficulty. Counseled take medications as prescribed. Outpatient follow-up with primary care physician if not improving in 2 to 3 days. Given strict return to the emergency room guidelines. Return for any new or worsening symptoms. All questions were answered. She verbalized understanding and agrees with plan of care. - Vital Signs Vital signs: Temp Pulse Resp BP Pulse Ox 98.2 F 78 16 122/72 100 10/16/19 13:55 10/16/19 13:55 10/16/19 13:55 10/16/19 13:55 10/16/19 13:55 - Diagnostic Test Radiology reviewed: Reports reviewed Discharge - Discharge Clinical Impression: Right hip pain, Back pain with right-sided sciatica Condition: Stable Disposition: HOME, SELF-CARE Instructions: Chronic Back Pain ([facility]), Contusion ([facility]), Sciatica ([facility]) Additional Instructions: Rest use heat 20 minutes 3 times a day. Medications as prescribed. Outpatient follow-up with your doctor if not improving in 2 to 3 days. Return for any new or worsening symptoms. Prescriptions: Cyclobenzaprine HCl [Flexeril 10 mg Tablet] 10 mg PO TIDP PRN #15 tab PRN Reason: Meloxicam [Mobic 7.5 Mg Tablet] 7.5 mg PO DAILY 10 Days #10 tablet Referrals: AGNES ATKINS MD [HONORARY] - Follow up as needed
--- NOTE | 2019-10-16 12:57 | RADIOLOGY REPORT (SQ) ---
EXAM DESCRIPTION: HIP RIGHT AP/LATERAL IMAGES COMPLETED DATE/TIME: 10/16/2019 12:46 pm REASON FOR STUDY: bed 17 s/p fall with hip tenderness?dislocation COMPARISON: None. NUMBER OF VIEWS: Two views. TECHNIQUE: AP pelvis and additional frog-leg view of the right hip. LIMITATIONS: Large patient FINDINGS: MINERALIZATION: Normal. RIGHT HIP: No fracture or dislocation. No worrisome bone lesions. LEFT HIP: No fracture or dislocation. No worrisome bone lesions. PUBIS AND ISCHIUM: No fracture. PELVIS: No fracture. SACRUM: No fracture or dislocation. No worrisome bone lesions. LOWER LUMBAR SPINE: No fracture or dislocation. No worrisome bone lesions. No significant disc disea se. SOFT TISSUES: No findings. OTHER: No other significant finding. IMPRESSION: NEGATIVE STUDY OF THE RIGHT HIP. NO RADIOGRAPHIC EVIDENCE OF ACUTE INJURY. COMMENT: If there is high clinical suspicion for hip or pelvic fracture, consider follow-up CT of th e bony pelvis TECHNICAL DOCUMENTATION: JOB ID: [id number] 2010 [employer]- All Rights Reserved Reading location - IP/workstation name: [id number]
[2019-10-16 13:55] VITALS: BP 122/72
== END 2019-10-16 13:55 | disposition home or self-care (01) ==
LOC: ER 12:21
DX: M54.31 Sciatica, right side (principal); M25.551 Pain in right hip; M54.5 Low back pain; M54.9 Dorsalgia, unspecified; G89.29 Other chronic pain; F17.200 Nicotine dependence, unspecified, uncomplicated; I25.10 Atherosclerotic heart disease of native coronary artery without angina pectoris; I10 Essential (primary) hypertension; J45.909 Unspecified asthma, uncomplicated; E11.9 Type 2 diabetes mellitus without complications
CPT/HCPCS: 99283; 73502; J3490

== ENCOUNTER 2019-10-17 03:54 | Inpatient (IN) | payer MEDICAID, OTHER ==
--- NOTE | 2019-10-17 04:54 | ER Document Report ---
ED Medical Screen (RME) - General Chief Complaint: Fall Stated Complaint: MULTIPLE FALLS Time Seen by Provider: 10/17/19 04:46 Primary Care Provider: CHRISTIANO THRASHER PA-C [Primary Care Provider] - Follow up as needed Notes: 54-year-old female comes by EMS from home for chief complaint of a fall and not being able to get up. She states that after she got out of bed she felt lightheaded, weak, and she fell to her knees. She states that she could not get up therefore she called EMS. She states that she has felt this way intermittently for the past few days and has fallen to her knees several times. EMS reports they have gone out to her house for the same thing 3 different times in the past 5 days. Patient denies alcohol, head injury, chest pain, shortness of breath, fever, vomiting, or any other complaints. TRAVEL OUTSIDE OF THE [place] IN LAST 30 DAYS: No - Related Data Allergies/Adverse Reactions: No Known Allergies Allergy (Verified 02/09/19 14:05) Past Medical History - Past Medical History Cardiac Medical History: Reports: Hx Coronary Artery Disease, Hx Hypercho lesterolemia, Hx Hypertension Denies: Hx Atrial Fibrillation, Hx Congestive Heart Failure, Hx Heart Attack, Hx Peripheral Vascular Disease, Hx Pulmonary Embolism, Hx Heart Murmur Pulmonary Medical History: Reports: Hx Asthma - no meds/inhalers, last ED visit > 5 years ago, Hx Bronchitis, Hx Pneumonia - denies hospitalization Denies: Hx COPD, Hx Respiratory Failure, Hx Sleep Apnea, Hx Tuberculosis Neurological Medical History: Reports: Hx Cerebrovascular Accident Endocrine Medical History: Reports: Hx Diabetes Mellitus Type 2, Hx Hypothyroidism. Denies: Hx Graves' Disease, Hx Hyperthyroidism Renal/ Medical History: Denies: Hx End Stage Renal Disease, Hx Kidney Stones, Hx Peritoneal Dialysis Malignancy Medical History: Denies: Hx Lung Cancer GI Medical History: Reports: Hx Gastroesophageal Reflux Disease. Denies: Hx Crohn's Disease, Hx Hiatal Hernia, Hx Irritable Bowel, Hx Liver Failure, Hx Pancreatitis, Hx Ulcer Musculoskeltal Medical History: Reports Hx Arthritis, Reports Hx Fibromyalgia - Dx'ed approx 15 years ago, Denies Hx Muscular Dystrophy, Reports Hx Musculoskeletal Deformity, Denies Hx Systemic Lupus Erythematosus Skin Medical History: Denies Hx MRSA Psychiatric Medical History: Reports: Hx Anxiety, Hx Attention Deficit Hyperactivity Disorder, Hx Depression, Hx Post Traumatic Stress Disorder Denies: Hx Bipolar Disorder, Hx Schizophrenia Traumatic Medical History: Reports: Hx Fractures Past Surgical History: Reports: Hx Section - x 2, Hx Cholecystectomy - open , Hx Oral Surgery, Hx Orthopedic Surgery - right knee replacement, Hx Tubal Ligation. Denies: Hx Appendectomy, Hx Bowel Surgery, Hx Colostomy, Hx Coronary Artery Bypass Graft, Hx Gastric Bypass Surgery, Hx Herniorrhaphy, Hx Hysterectomy, Hx Mastectomy, Hx Pacemaker, Hx Tonsillectomy - Immunizations Immunizations up to date: Yes Hx Diphtheria, Pertussis, Tetanus Vaccination: Yes Physical Exam - Vital signs Vitals: Temp 97.5 F 10/17/19 04:00 - Respiratory Respiratory status: No respiratory distress - Neurological Orientation: AAOx4 [place] Coma Scale Eye Opening: To Voice Simone Coma Scale Verbal: Oriented [place] Coma Scale Motor: Obeys Commands [place] Coma Scale Total: 14 Speech: Normal Cranial nerves: Normal Cerebellar coordination: Normal Course - Re-evaluation Re-evalutation: 10/17/19 04:54 Patient is sleeping but arousable to voice. She is very drowsy but she does not have pinpoint pupils. Patient is very unkempt. Patient denying any current symptoms except knee pain, generalized weakness, and dizziness when she stands. Vital signs unremarkable. No signs of trauma except abrasions to the knees. Work-up pending. I have greeted and performed a rapid initial assessment of this patient. A comprehensive ED assessment and evaluation of the patient, analysis of test results and completion of the medical decision making process will be conducted by additional ED providers. - Vital Signs Vital signs: Temp Pulse Resp BP Pulse Ox 97.6 F 80 20 118/55 L 93 10/17/19 04:05 10/17/19 04:05 10/17/19 04:05 10/17/19 04:05 10/17/19 04:05 Doctor's Discharge - Discharge Referrals: CHRISTIANO THRASHER PA-C [Primary Care Provider] - Follow up as needed
--- NOTE | 2019-10-17 05:50 | RADIOLOGY REPORT (SQ) ---
AP Portable chest: 10/17/2019 4:49 AM CDT History: 54-year old patient with weakness. Comparison: None available Findings: The cardiomediastinal silhouette is normal in size. No pneumothorax is seen. No acute airspace opacities are seen. No discrete pleural effusion is apparent. Impression: No acute airspace opacities are seen.
[2019-10-17 05:51] LABS: ABSOLUTE LYMPHOCYTES (AUTO) 2.3 10^3/uL (0.5-4.7); ABSOLUTE MONOCYTES (AUTO) 0.8 10^3/uL (0.1-1.4); BASOPHILS % (AUTO) 0.3 % (0-2); EOSINOPHILS % (AUTO) 0.4 % (0-6); HEMATOCRIT 37.4 % (36.0-47.0); LYMPHOCYTES % (AUTO) 22.2 % (13-45); MEAN CORPUSCULAR HEMOGLOBIN 29.5 pg (27.0-33.4); MEAN CORPUSCULAR HGB CONC 34.8 g/dL (32.0-36.0); MEAN CORPUSCULAR VOLUME 85 fl (80-97); MONOCYTES % (AUTO) 8.1 % (3-13); PLATELET COUNT 311 10^3/uL (150-450); RED BLOOD COUNT 4.42 10^6/uL (3.72-5.28); RED CELL DISTRIBUTION WIDTH 13.1 % (11.5-14.0); TOTAL CELLS COUNTED % (AUTO) 100 %; WHITE BLOOD COUNT 10.1 10^3/uL (4.0-10.5)
--- NOTE | 2019-10-17 05:54 | RADIOLOGY REPORT (SQ) ---
EXAM: X-ray knee 1-2 views bilateral CLINICAL DATA: 54-year-old female with bilateral knee pain status post fall TECHNICAL DATA: Two x-ray views of each knee were performed on 10/17/2019 at 5:27 AM. COMPARISONS: Right knee performed on 08/08/2014 FINDINGS: RIGHT: There is a total right knee arthroplasty without evidence to suggest hardware failure there is no evidence of acute fracture or dislocation. No pathologic lytic or sclerotic bone lesions are identified. There is a prominent fabella posterior to the knee joint. There is also a well-corticated osseous density along the anterior aspect of the distal femoral diaphysis. Bone mineralization is normal. There are vascular calcifications along the distal femoral artery and popliteal artery. LEFT: There is no evidence of fracture or dislocation. There is mild narrowing of the medial joint compartment and patellofemoral compartment. Minimal hypertrophic spurring of the femoral condyles, tibial plateau and posterior patella. There is a posterior fabella. No pathologic lytic or sclerotic bone lesions are identified. There may be a very small osteochondroma arising from the proximal medial tibial metaphysis. Bone mineralization is normal. There may be a small suprapatellar joint effusion. IMPRESSION: 1. Remote right knee arthroplasty without evidence to suggest hardware failure or acute osseous abnormality. There are chronic degenerative changes of the right knee. 2. No evidence of acute osseous abnormality involving the left knee. There are chronic degenerative changes of the left knee. 3. Suspect small left suprapatellar joint effusion.
[2019-10-17 05:55] LABS: APPEARANCE,URINE CLEAR; BILIRUBIN,URINE NEGATIVE (NEGATIVE); COLOR,URINE YELLOW; GLUCOSE, URINE NEGATIVE (NEGATIVE); KETONES,URINE TRACE mg/dL (NEGATIVE); LEUKOCYTE ESTERASE,URINE NEGATIVE (NEGATIVE); NITRITE,URINE NEGATIVE (NEGATIVE); PROTEIN,URINE 100 mg/dL (NEGATIVE); URINE SPECIFIC GRAVITY 1.017; UROBILINOGEN,URINE NEGATIVE mg/dL (<2.0)
[2019-10-17 06:08] LABS: ALBUMIN 3.4 g/dL (3.5-5.0); ALKALINE PHOSPHATASE 58 U/L (38-126); ANION GAP 6 (5-19); ASPARTATE AMINO TRANSFERASE 163 U/L (14-36); BILIRUBIN,TOTAL 0.4 mg/dL (0.2-1.3); BLOOD UREA NITROGEN 15 mg/dL (7-20); CALCIUM 9.1 mg/dL (8.4-10.2); CARBON DIOXIDE 29 mmol/L (22-30); CHLORIDE 105 mmol/L (98-107); GLUCOSE 70 mg/dL (75-110); POTASSIUM 3.2 mmol/L (3.6-5.0); TOTAL PROTEIN 5.9 g/dL (6.3-8.2)
[2019-10-17 06:10] LABS: URINE AMPHETAMINES SCREEN NEGATIVE; URINE BARBITURATES SCREEN NEGATIVE; URINE BENZODIAZEPINES SCREEN NEGATIVE; URINE COCAINE SCREEN NEGATIVE; URINE MARIJUANA (THC) SCREEN NEGATIVE; URINE METHADONE SCREEN NEGATIVE; URINE PHENCYCLIDINE SCREEN NEGATIVE
[2019-10-17 06:12] LABS: ALCOHOL < 10 mg/dL (NONE DETECTED)
--- NOTE | 2019-10-17 07:31 | ER Document Report ---
Entered by CHRISTY FONSECA SCRIBE 10/17/19 0649 Acting as scribe for:ADARSH HERNANDEZ MD ED General - General Chief Complaint: Fall Stated Complaint: MULTIPLE FALLS Time Seen by Provider: 10/17/19 04:46 Primary Care Provider: CHRISTIANO THRASHER PA-C [Primary Care Provider] - Follow up as needed Mode of Arrival: Medic Information source: Patient Notes: This 54-year-old female patient with Parkinson's disease presents to the emergency department today with complaints of multiple falls over the last few days. EMS has been called to the patient's residence at least 3 times over the last five days for falls, transported here once yesterday. Yesterday she was seen here in this ED for low back pain and hip pain which has since subsided. Patient states she has been falling every so often for the last couple months and there are no preceding symptoms with her falls. Patient states she feels like her falls are because she is both losing her balance and her legs are weak. Patient states today she fell and could not get up on her own which is why she called 911. Patient's sister was her carpet yarn winder operator who also lived with her but they had a di sagreement about a month ago and she has been living alone since then. TRAVEL OUTSIDE OF THE [place] IN LAST 30 DAYS: No - Related Data Allergies/Adverse Reactions: No Known Allergies Allergy (Verified 02/09/19 14:05) Past Medical History - General Information source: Patient - Social History Smoking Status: Current Every Day Smoker Cigarette use (# per day): Yes - 1 ppd Frequency of alcohol use: None Drug Abuse: None Lives with: Family Family History: Arthritis, CAD, CVA, DM, Hyperlipidemia, Hypertension, Malignancy, Thyroid Disfunction Patient has homicidal ideation: No - Past Medical History Cardiac Medical History: Reports: Hx Coronary Artery Disease, Hx Hypercholesterolemia, Hx Hypertension Pulmonary Medical History: Reports: Hx Asthma - no meds/inhalers, last ED visit > 5 years ago, Hx Bronchitis, Hx Pneumonia - denies hospitalization Neurological Medical History: Reports: Hx Cerebrovascular Accident Endocrine Medical History: Reports: Hx Diabetes Mellitus Type 2, Hx Hypothyroidism GI Medical History: Reports: Hx Gastroesophageal Reflux Disease Musculoskeletal Medical History: Reports Hx Arthritis, Reports Hx Fibromyalgia, Reports Hx Musculoskeletal Deformity Psychiatric Medical History: Reports: Hx Anxiety, Hx Attention Deficit Hyperactivity Disorder, Hx Depression, Hx Post Traumatic Stress Disorder Traumatic Medical History: Reports: Hx Fractures Past Surgical History: Reports: Hx Section - x2, Hx Cholecystectomy - open , Hx Oral Surgery, Hx Orthopedic Surgery - right knee replacement, Hx Tubal Ligation - Immunizations Immunizations up to date: Yes Hx Diphtheria, Pertussis, Tetanus Vaccination: Yes Review of Systems - Review of Systems Constitutional: See HPI, Other - multiple falls EENT: No symptoms reported Cardiovascular: No symptoms reported Respiratory: No symptoms reported Gastrointestinal: No symptoms reported Genitourinary: No symptoms reported Female Genitourinary: No symptoms reported Musculoskeletal: No symptoms reported Skin: No symptoms reported Hematologic/Lymphatic: No symptoms reported Neurological/Psychological: No symptoms reported -: Yes All other systems reviewed and negative Physical Exam - Vital signs Vitals: Temp 97.5 F 10/17/19 04:00 - Notes Notes: Physical Exam: General: Alert, appears unkempt. Slow deliberate speech. HEENT: Normocephalic. Atraumatic. PERRL. Extraocular movements intact. Or opharynx clear. Poor dentition. Neck: Supple. Non-tender. Respiratory: No respiratory distress. Clear and equal breath sounds bilaterally. Cardiovascular: Regular rate and rhythm. Abdominal: Obese. Non-tender. No distension. Normal Bowel Sounds. Back: No gross abnormalities. Extremities: Moves all four extremities. Upper extremities: Normal inspection. Normal ROM. Lower extremities: Trace pitting edema bilaterally. Normal ROM. Neurological: Normal cognition. AAOx4. Slow deliberate speech. Psychological: Normal affect. Normal Mood. Skin: Warm. Dry. Normal color. Course - Re-evaluation Re-evalutation: 10/17/19 10:16 Patient has a urine drug screen that is positive for opiates. She did receive 1 [place] here in the emergency room yesterday which is the likely source of the positive test. Her Depakote level is in therapeutic range. The patient has a CPK of 9,147. It is unknown if this is due to trauma from a fall, crush injury from laying on the floor, or due to the atorvastatin. The patient lives alone. She is not able to care for self due to weakness and balance issues and frequently going to the floor and unable to get back up. - Vital Signs Vital signs: Temp Pulse Resp BP Pulse Ox 97.6 F 80 13 116/66 97 10/17/19 04:05 10/17/19 04:05 10/17/19 08:00 10/17/19 08:01 10/17/19 08:01 - Laboratory Result Diagrams: 10/17/19 05:04 10/17/19 05:04 Laboratory results interpreted by me: 10/17/19 10/17/19 10/17/19 05:04 05:04 05:18 Potassium 3.2 L Glucose 70 L AST 163 H ALT 54 H Creatine Kinase 9147 H Total Protein 5.9 L Albumin 3.4 L Urine Protein 100 H Urine Ketones TRACE H Urine Blood SMALL H - Diagnostic Test Radiology reviewed: Image reviewed, Reports reviewed - Chest x-ray does not show acute changes. Right knee x-ray shows old total knee replacement. Left knee shows possible small suprapatellar effusion. - EKG Interpretation by Me EKG shows normal: Sinus rhythm, [place], Intervals, QRS Complexes, ST-T Waves Rate: Normal - 72 Rhythm: NSR - Consults ARA Clark Time consulted: 10:20 Consulted provider: will come to ER Discharge - Discharge Clinical Impression: Frequent falls, Muscle weakness Rhabdomyolysis Qualifiers: Rhabdomyolysis type: traumatic Encounter type: initial encounter Qualified Code(s): T79.6XXA - Traumatic ischemia of muscle, initial encounter Condition: Stable Disposition: ADMITTED INPATIENT Admitting Provider: Deanne (Hospitalist) - ARA Clark to see the patient Unit Admitted: Medical Floor Referrals: CHRISTIANO THRASHER PA-C [Primary Care Provider] - Follow up as needed I personally performed the services described in the documentation, reviewed and edited the documentation which was dictated to the scribe in my presence, and it accurately records my words and actions.
--- NOTE | 2019-10-17 10:43 | EKG REPORT ---
SEVERITY:- NORMAL ECG - SINUS RHYTHM : Confirmed by: Kyle Vallejo 17-Oct-2019 10:42:21
[2019-10-17] MEDS ORDERED: IPRATROPIUM/ALBUTEROL 0.5-2.5 MG/3 ML AMPUL NEB PRN (12:34)
[2019-10-17] MEDS ORDERED: DEXTROSE 50%-WATER 25 GM/50 ML DISP.SYRIN IV PRN ×2 (12:43)
[2019-10-17] MEDS ORDERED: DEXTROSE 40% GEL 15 GM TUBE PO PRN ×2 (12:43)
[2019-10-17] MEDS ORDERED: GLUCAGON,HUMAN RECOMB 1 MG INJ IM PRN (12:43)
[2019-10-17] MEDS ORDERED: MAGNESIUM HYDROXIDE SUSP 30 ML UDCUP PO PRN (12:48)
[2019-10-17] MEDS ORDERED: ONDANSETRON 4 MG TAB.RAPDIS PO PRN (12:48)
[2019-10-17] MEDS ORDERED: MAG HYDROX/AL HYDROX/SIMETH SUSP 30 ML UDCUP PO PRN (12:48)
[2019-10-17] MEDS ORDERED: ONDANSETRON HCL INJ/PF 4 MG/2 ML SDV IV PRN (12:48)
--- NOTE | 2019-10-17 13:17 | PDOC H&P ---
History of Present Illness Admission Date/PCP: 10/17/19 11:07 CHRISTIANO THRASHER PA-C History of Present Illness: ADAM CRAIG is a 54 year old female who comes to the emergency room after havi ng repeated falls recently. She was just in the emergency room yesterday for falling and today she fell again and had difficulty getting up so she called 911 again. Evidently she was living with her sister until about a month ago and they had an argument and the sister has moved out. Get the impression that she is not doing as well living alone. Comes in today because she says she is weak in both of her legs. CPK is elevated and this is either from the fall or possibly from being down at any rate she needs to be put in the hospital for observation status with serial CPKs for potential rhabdomyolysis. He is awake and alert she appears to be stable to be transferred to the floor she tells me all of her past medical history, in fact is a good historian. Get physical therapy to see her as well as charge planning. Past Medical History Cardiac Medical History: Reports: Coronary Artery Disease, Hyperlipidema, Hypertension Denies: Atrial Fibrillation, Congestive Heart Failure, Myocardial Infarction, Peripheral Vascular Disease, Pulmonary Embolism, Heart Murmur Pulmonary Medical History: Reports: Asthma - no meds/inhalers, last ED visit > 5 years ago, Bronchitis, Pneumonia - denies hospitalization Denies: Chronic Obstructive Pulmonary Disease (COPD), Respiratory Failure, Sleep Apnea, Tuberculosis Endocrine Medical History: Reports: Diabetes Mellitus Type 2, Hypothyroidism Denies: Hyperthyroidism Renal/ Medical History: Denies: End Stage Renal Disease Malignancy Medical History: Denies: Lung Cancer GI Medical History: Reports: Gastroesophageal Reflux Disease Denies: Crohn's Disease, Hiatal Hernia Musculoskeltal Medical History: Reports: Arthritis, Fibromyalgia Psychiatric Medical History: Reports: Attention Deficit Hyperactivity Disorder, Depression, Post Traumatic Stress Disorder Denies: Bipolar Disorder Past Surgical History Past Surgical History: Reports: Section - x2, Cholecystectomy - open , Orthopedic Surgery - right knee replacement, Tubal Ligation Denies: Amputation, Appendectomy, Colostomy, Coronary Artery Bypass Graft, Gastric Bypass Surgery, Herniorrhaphy, Hysterectomy, Mastectomy, Pacemaker, Tonsillectomy Social History Lives with: Family Smoking Status: Current Every Day Smoker Frequency of Alcohol Use: None Hx Recreational Drug Use: No Hx Prescription Drug Abuse: No - Advance Directive Resuscitation Status: Full Code Family History Family History: Arthritis, CAD, CVA, DM, Hyperlipidemia, Hypertension, Malignancy, Thyroid Disfunction Parental Family History Reviewed: No Children Family History Reviewed: No Sibling(s) Family History Reviewed.: No Medication/Allergy Home Medications: Atorvastatin Calcium [Lipitor 80 mg Tablet] 80 mg PO QHS 02/20/19 Escitalopram Oxalate [Lexapro] 20 mg PO QAM 02/20/19 Gabapentin [Neurontin 300 mg Capsule] 300 mg PO Q8 02/20/19 Levothyroxine Sodium 50 mcg PO Q6AM 02/20/19 Metformin HCl [Glucophage] 1,000 mg PO BID 02/20/19 Divalproex Sodium [Depakote] 250 mg PO BID #30 tablet. 02/25/19 Divalproex Sodium [Depakote] 250 mg PO BID #28 tablet. 03/02/19 Cyclobenzaprine HCl [Flexeril 10 mg Tablet] 10 mg PO TIDP PRN #15 tab 10/16/19 Meloxicam [Mobic 7.5 Mg Tablet] 7.5 mg PO DAILY 10 Days #10 tablet 10/16/19 Allergies/Adverse Reactions: No Known Allergies Allergy (Verified 02/09/19 14:05) Review of Systems Constitutional: PRESENT: as per HPI, weakness Cardiovascular: ABSENT: chest pain, dyspnea on exertion, edema, orthropnea, palpitations Respiratory: ABSENT: cough, hemoptysis Musculoskeletal: PRESENT: muscle weakness - Both legs Neurological: ABSENT: abnormal gait, abnormal speech, confusion, dizziness, focal weakness, syncope Physical Exam Vital Signs: Temp Pulse Resp BP Pulse Ox 97.6 F 80 13 116/66 97 10/17/19 04:05 10/17/19 04:05 10/17/19 08:00 10/17/19 08:01 10/17/19 08:01 Intake & Output 10/16/19 10/17/19 10/18/19 06:59 06:59 06:59 Weight 80.8 kg General appearance: PRESENT: no acute distress Respiratory exam: PRESENT: clear to auscultation diana. ABSENT: rales, rhonchi, wheezes Cardiovascular exam: PRESENT: RRR. ABSENT: diastolic murmur, rubs, systolic murmur Extremities exam: PRESENT: other - Abrasion to the left knee Musculoskeletal exam: PRESENT: tenderness - Slight tenderness to palpation to the entire left leg, other - Range of motion to both lower extremities Neurological exam: PRESENT: alert, awake, oriented to person, oriented to place, oriented to time, oriented to situation, CN II-XII grossly intact. ABSENT: motor sensory deficit Psychiatric exam: PRESENT: appropriate affect, normal mood. ABSENT: homicidal ideation, suicidal ideation Results Laboratory Results: 10/17/19 05:04 10/17/19 05:04 10/17/19 10/17/19 10/17/19 05:04 05:04 05:18 WBC 10.1 RBC 4.42 Hgb 13.0 Hct 37.4 MCV 85 MCH 29.5 MCHC 34.8 RDW 13.1 Plt Count 311 Seg Neutrophils % 69.0 Sodium 139.5 Potassium 3.2 L Chloride 105 Carbon Dioxide 29 Anion Gap 6 BUN 15 Creatinine 0.72 Est GFR ( Amer) > 60 Glucose 70 L Calcium 9.1 Total Bilirubin 0.4 AST 163 H Alkaline Phosphatase 58 Total Protein 5.9 L Albumin 3.4 L Urine Color YELLOW Urine Appearance CLEAR Urine pH 6.0 Ur Specific [place] 1.017 Urine Protein 100 H Urine Glucose (UA) NEGATIVE Urine Ketones TRACE H Urine Blood SMALL H Urine Nitrite NEGATIVE Ur Leukocyte Esterase NEGATIVE Urine WBC (Auto) 2 Urine RBC (Auto) 1 10/17/19 10/17/19 10/17/19 05:04 05:04 08:56 Creatine Kinase 9147 H Troponin I 0.078 0.056 Impressions: Knee X-Ray 10/17/19 04:52 IMPRESSION: 1. Remote right knee arthroplasty without evidence to suggest hardware failure or acute osseous abnormality. There are chronic degenerative changes of the right knee. 2. No evidence of acute osseous abnormality involving the left knee. There are chronic degenerative changes of the left knee. 3. Suspect small left suprapatellar joint effusion. Assessment and Plan - Diagnosis (1) Parkinsons Is this a current diagnosis for this admission?: Yes (2) Diabetes Is this a current diagnosis for this admission?: Yes (3) Osteoarthritis Is this a current diagnosis for this admission?: Yes (4) Frequent falls Is this a current diagnosis for this admission?: Yes (5) Muscle weakness Is this a current diagnosis for this admission?: Yes (6) Rhabdomyolysis Qualifiers: Rhabdomyolysis type: traumatic Encounter type: initial encounter Qualified Code(s): T79.6XXA - Traumatic ischemia of muscle, initial encounter Is this a current diagnosis for this admission?: Yes - Plan Summary Summary: Patient will be admitted for PT consult, discharge planning consult, patient stack s states she wants to go back home at time of discharge. Patient will also have gentle IV hydration and serial labs. - Time Time Spent with patient: 35 or more minutes
[2019-10-17 13:55] LABS: INTERNATIONAL RATION (INR) 0.93; PROTHROMBIN TIME 12.5 SEC (11.4-15.4)
[2019-10-17 14:04] LABS: CREATINE KINASE MB 45.6 ng/mL (<4.55); TROPONIN I 0.045 ng/mL
[2019-10-17] MEDS: INSULIN LISPRO 100 UNIT/ML 3 ML VIAL SUBCUT SCH ×2 (17:39→22:08)
[2019-10-17] MEDS: NORMAL SALINE 1000 ML 1,000 ML IV PRN (18:38)
[2019-10-17] MEDS: FAMOTIDINE 20 MG TABLET PO SCH (22:07)
[2019-10-17] MEDS: ACETAMINOPHEN 325 MG TABLET PO PRN (22:07)
[2019-10-18] MEDS: ACETAMINOPHEN 325 MG TABLET PO PRN ×3 (06:00→15:19)
[2019-10-18] MEDS: NORMAL SALINE 1000 ML 1,000 ML IV PRN ×2 (06:00→17:20)
[2019-10-18 06:27] LABS: ABSOLUTE BASOPHILS # (AUTO) 0.1 10^3/uL (0.0-0.2); ABSOLUTE LYMPHOCYTES (AUTO) 2.1 10^3/uL (0.5-4.7); ABSOLUTE MONOCYTES (AUTO) 0.6 10^3/uL (0.1-1.4); ABSOLUTE NEUT (AUTO) 4.5 10^3/uL (1.7-8.2); EOSINOPHILS % (AUTO) 0.6 % (0-6); HEMATOCRIT 37.7 % (36.0-47.0); LYMPHOCYTES % (AUTO) 29.2 % (13-45); MEAN CORPUSCULAR HEMOGLOBIN 29.3 pg (27.0-33.4); MEAN CORPUSCULAR HGB CONC 34.6 g/dL (32.0-36.0); MEAN CORPUSCULAR VOLUME 85 fl (80-97); PLATELET COUNT 254 10^3/uL (150-450); RED BLOOD COUNT 4.45 10^6/uL (3.72-5.28); SEGMENTED NEUTROPHILS % (AUTO) 61.2 % (42-78); TOTAL CELLS COUNTED % (AUTO) 100 %; WHITE BLOOD COUNT 7.4 10^3/uL (4.0-10.5)
[2019-10-18 06:39] LABS: ANION GAP 6 (5-19); BLOOD UREA NITROGEN 18 mg/dL (7-20); CALCIUM 8.6 mg/dL (8.4-10.2); CARBON DIOXIDE 25 mmol/L (22-30); CHLORIDE 106 mmol/L (98-107); GLUCOSE 120 mg/dL (75-110); POTASSIUM 3.4 mmol/L (3.6-5.0)
[2019-10-18 06:51] LABS: CREATINE KINASE 2888 U/L (30-135)
[2019-10-18] MEDS: INSULIN LISPRO 100 UNIT/ML 3 ML VIAL SUBCUT SCH ×4 (08:47→21:32)
[2019-10-18] MEDS: ENOXAPARIN SODIUM INJ 40 MG/0.4 ML DISP.SYRIN SUBCUT SCH (09:33)
[2019-10-18] MEDS: DOCUSATE SODIUM 100 MG CAPSULE PO SCH (09:33)
[2019-10-18] MEDS: POTASSIUM CHLORIDE 20 MEQ PACKET PO SCH ×2 (09:33→21:37)
[2019-10-18] MEDS: FAMOTIDINE 20 MG TABLET PO SCH ×2 (09:33→21:37)
--- NOTE | 2019-10-18 11:25 | PDOC PROGRESS REPORT ---
Subjective Progress Note for:: 10/18/19 Reason For Visit: FREQUENT FALL,LEFT LEG PAIN,PARKINSON'S DISEASE, 10/18/2019 Mated yesterday for frequent falls, rhabdomyolysis, chronic bilateral leg pain, diabetes, Parkinson's Physical Exam Vital Signs: Temp Pulse Resp BP Pulse Ox 97.2 F 81 15 150/81 H 98 10/18/19 07:27 10/18/19 07:27 10/18/19 07:27 10/18/19 07:27 10/18/19 07:27 Intake & Output 10/17/19 10/18/19 10/19/19 06:59 06:59 06:59 Intake Total 1580 Balance 1580 Weight 80.8 kg 80.7 kg General appearance: PRESENT: no acute distress Respiratory exam: PRESENT: clear to auscultation diana. ABSENT: rales, rhonchi, wheezes Cardiovascular exam: PRESENT: RRR. ABSENT: diastolic murmur, rubs, systolic murmur Neurological exam: PRESENT: alert, awake, oriented to person, oriented to place, oriented to time, oriented to situation, CN II-XII grossly intact. ABSENT: motor sensory deficit Psychiatric exam: PRESENT: appropriate affect, normal mood. ABSENT: homicidal ideation, suicidal ideation Results Laboratory Results: 10/18/19 05:40 10/18/19 05:40 10/17/19 10/18/19 10/18/19 13:26 05:40 05:40 WBC 7.4 RBC 4.45 Hgb 13.0 Hct 37.7 MCV 85 MCH 29.3 MCHC 34.6 RDW 13.0 Plt Count 254 Seg Neutrophils % 61.2 Sodium 136.6 L Potassium 3.4 L Chloride 106 Carbon Dioxide 25 Anion Gap 6 BUN 18 Creatinine 0.51 L Est GFR ( Amer) > 60 Glucose 120 H Calcium 8.6 Magnesium 1.7 TSH 6.99 H 10/17/19 10/17/19 10/17/19 05:04 05:04 08:56 Creatine Kinase 9147 H CK-MB (CK-2) Troponin I 0.078 0.056 NT-Pro-B Natriuret Pep 10/17/19 10/18/19 13:26 05:40 Creatine Kinase 2888 H CK-MB (CK-2) 45.60 H Troponin I 0.045 NT-Pro-B Natriuret Pep 460 H Impressions: Knee X-Ray 10/17/19 04:52 IMPRESSION: 1. Remote right knee arthroplasty without evidence to suggest hardware failure or acute osseous abnormality. There are chronic degenerative changes of the right knee. 2. No evidence of acute osseous abnormality involving the left knee. There are chronic degenerative changes of the left knee. 3. Suspect small left suprapatellar joint effusion. Assessment and Plan - Diagnosis (1) Parkinsons Is this a current diagnosis for this admission?: Yes (2) Diabetes Is this a current diagnosis for this admission?: Yes (3) Osteoarthritis Is this a current diagnosis for this admission?: Yes (4) Frequent falls Is this a current diagnosis for this admission?: Yes (5) Muscle weakness Is this a current diagnosis for this admission?: Yes (6) Rhabdomyolysis Qualifiers: Rhabdomyolysis type: traumatic Encounter type: initial encounter Qualified Code(s): T79.6XXA - Traumatic ischemia of muscle, initial encounter Is this a current diagnosis for this admission?: Yes - Plan Summary Summary: Patient will be admitted for PT consult, discharge planning consult, patient does states she wants to go back home at time of discharge. Patient will also have gentle IV hydration and serial labs. 10/18/2019 Vital signs are stable this morning temperature 97.2 pulse 81 blood pressure 150/81 oxygen saturation 98% on room air. White count remains normal 7.4 potassium low but up slightly 3.4 she does not take potassium at home TSH slightly up 6.99, he is on a low-dose of Synthroid 50 mcqs at home Patient does not appear to be toxic with Depakote level On admission CK was 9147 today it is down to 2888 Physical therapy has seen the patient and I have consulted discharge planning as well. Patient does not want to go to correction facility at time of discharge she wants to go back home. She asked me if she can have surgery on her back for her bilateral leg pain I told her she was not a good surgical candidate and needed further conservative therapy. Patient is on gabapentin at home as well as Depakote, Lantus insulin Lipitor I have resumed home meds - Time Time Spent with patient: 25-34 minutes
[2019-10-18] MEDS: GABAPENTIN 300 MG CAPSULE PO SCH (11:44)
[2019-10-18] MEDS ORDERED: ONDANSETRON HCL INJ/PF 4 MG/2 ML SDV IV PRN (13:30)
[2019-10-18] MEDS ORDERED: ONDANSETRON 4 MG TAB.RAPDIS PO PRN (13:30)
[2019-10-18] MEDS: METFORMIN HCL 500 MG TABLET PO SCH (17:20)
[2019-10-18] MEDS: ATORVASTATIN CALCIUM 80 MG TABLET PO SCH (21:37)
[2019-10-18] MEDS: DIVALPROEX SODIUM 500 MG TAB.SR.24H PO SCH (21:37)
[2019-10-18] MEDS: INSULIN GLARGINE,HUM.REC.ANLOG 1,000 UNIT/10 ML VIAL SUBCUT SCH (21:38)
[2019-10-19] MEDS: NORMAL SALINE 1000 ML 1,000 ML IV PRN (02:57)
[2019-10-19] MEDS: ACETAMINOPHEN 325 MG TABLET PO PRN ×3 (04:17→17:07)
[2019-10-19] MEDS: LEVOTHYROXINE SODIUM 0.05 MG TABLET PO SCH (06:00)
[2019-10-19] MEDS: INSULIN LISPRO 100 UNIT/ML 3 ML VIAL SUBCUT SCH ×4 (07:21→21:47)
[2019-10-19] MEDS: POTASSIUM CHLORIDE 20 MEQ PACKET PO SCH ×2 (09:41→21:48)
[2019-10-19] MEDS: METFORMIN HCL 500 MG TABLET PO SCH ×2 (09:41→17:07)
[2019-10-19] MEDS: DIVALPROEX SODIUM 500 MG TAB.SR.24H PO SCH ×2 (09:42→21:48)
[2019-10-19] MEDS: GABAPENTIN 300 MG CAPSULE PO SCH (09:42)
[2019-10-19] MEDS: FAMOTIDINE 20 MG TABLET PO SCH ×2 (09:42→21:48)
[2019-10-19] MEDS: ENOXAPARIN SODIUM INJ 40 MG/0.4 ML DISP.SYRIN SUBCUT SCH (09:42)
[2019-10-19] MEDS: DOCUSATE SODIUM 100 MG CAPSULE PO SCH (10:05)
--- NOTE | 2019-10-19 17:45 | PDOC PROGRESS REPORT ---
Subjective Progress Note for:: 10/19/19 Subjective:: It was seen on morning rounds. She was found resting in bed, comfortably, on room air. She reports that she is feeling well today and asks to be discharged home. She does admit to urinary incontinence, however, upon clarification relates that this is chronic and that she utilizes depends at home. We had a long discussion regarding safe discharged home where the patient lives independently. She contradicted herself multiple times and I am uncertain that she was able to clearly assess her risks related to discharge and so asked for mental health screening. Specifically, patient stated that she would be willing to go to an [facility]/SNF once she had "a fall bad enough to cause an injury." When I explained the significance of rhabdomyolysis, she stated "Well, then after I get hurt next time." She was unable to identify friends or family that might be able to assist her and was concerned that her insurance would not provide for in-home care. Further conversation regarding disposition was deferred until mental health screening could be conducted to assess for capacity. She denied fever, chills, chest pain, palpitations, abdominal pain, nausea and vomiting. She had no other questions or concerns at this time. No concerns per nursing. Reason For Visit: RHABDOMYOLYSIS Physical Exam Vital Signs: Temp Pulse Resp BP Pulse Ox 98.2 F 78 16 150/68 H 98 10/19/19 11:27 10/19/19 11:27 10/19/19 11:27 10/19/19 11:27 10/19/19 11:27 Intake & Output 10/18/19 10/19/19 10/20/19 06:59 06:59 06:59 Intake Total 1580 3400 1385 Balance 1580 3400 1385 Weight 80.7 kg 80 kg General appearance: PRESENT: no acute distress, disheveled, well-developed, well-nourished - overweight Head exam: PRESENT: atraumatic, normocephalic Eye exam: PRESENT: conjunctiva pink, EOMI, PERRLA. ABSENT: scleral icterus Ear exam: PRESENT: normal external ear exam Mouth exam: PRESENT: moist, tongue midline Teeth exam: PRESENT: dental caries, poor dentation Neck exam: ABSENT: carotid bruit, JVD, lymphadenopathy, thyromegaly Respiratory exam: PRESENT: clear to auscultation diana, symmetrical, unlabored. ABSENT: rales, rhonchi, wheezes Cardiovascular exam: PRESENT: RRR. ABSENT: diastolic murmur, rubs, systolic murmur Pulses: PRESENT: normal dorsalis pedis pul Vascular exam: PRESENT: normal capillary refill GI/Abdominal exam: PRESENT: normal bowel sounds, soft. ABSENT: distended, guarding, mass, organolmegaly, rebound, tenderness Rectal exam: PRESENT: deferred Extremities exam: PRESENT: full ROM. ABSENT: calf tenderness, clubbing, pedal edema Neurological exam: PRESENT: alert, awake, oriented to person, oriented to place, oriented to time, oriented to situation, CN II-XII grossly intact, other - Forgetful, repetative. ABSENT: motor sensory deficit Psychiatric exam: PRESENT: normal mood, unusual affect, other - Contradicts herself numerous times during conversation; unclear risk awareness. ABSENT: homicidal ideation, suicidal ideation Skin exam: PRESENT: dry, intact, warm. ABSENT: cyanosis, rash Results Laboratory Results: 10/18/19 05:40 10/18/19 05:40 10/17/19 10/17/19 10/17/19 05:04 05:04 08:56 Creatine Kinase 9147 H CK-MB (CK-2) Troponin I 0.078 0.056 NT-Pro-B Natriuret Pep 10/17/19 10/18/19 10/19/19 13:26 05:40 05:44 Creatine Kinase 2888 H 1075 H CK-MB (CK-2) 45.60 H Troponin I 0.045 NT-Pro-B Natriuret Pep 460 H 10/19/19 14:54 Creatine Kinase 864 H CK-MB (CK-2) Troponin I NT-Pro-B Natriuret Pep Impressions: Knee X-Ray 10/17/19 04:52 IMPRESSION: 1. Remote right knee arthroplasty without evidence to suggest hardware failure or acute osseous abnormality. There are chronic degenerative changes of the right knee. 2. No evidence of acute osseous abnormality involving the left knee. There are chronic degenerative changes of the left knee. 3. Suspect small left suprapatellar joint effusion. Assessment and Plan - Diagnosis (1) Rhabdomyolysis Qualifiers: Rhabdomyolysis type: traumatic Encounter type: initial encounter Qual ified Code(s): T79.6XXA - Traumatic ischemia of muscle, initial encounter Is this a current diagnosis for this admission?: Yes Plan: Related to multiple falls; she did have a fall at home with several hours on the floor prior to calling for help. CK trending down; 9000-> 2800-> 1000-> 860 Continue IV fluids. Follow-up chemistry. (2) Frequent falls Is this a current diagnosis for this admission?: Yes Plan: Likely secondary to Parkinson's and generalized deconditioning. PT/OT consulted. Have recommended SNF placement. Discharge planning consulted. Patient is adamant about discharging to home; did ask mental health services to evaluate the patient's ability to adequately assess risks of return to home where she lives independently. Pending their evaluation, will discharge to home with home health services. (3) Diabetes Qualifiers: Diabetes mellitus type: type 2 Diabetes mellitus senior living insulin use: with histology specialist use Is this a current diagnosis for this admission?: Yes Plan: A1c 7.1% Patient is placed on a consistent carb diet. Continue home dose metformin. Continue home dose Lantus; 40 units nightly Accu-Cheks before meals and at bedtime with Humalog for sliding scale coverage. Hypoglycemia protocol in place. Registered dietitian perinatal educator consulted. (4) Muscle weakness Is this a current diagnosis for this admission?: Yes Plan: Secondary to Parkinson's. Evaluation management as above. (5) Osteoarthritis Is this a current diagnosis for this admission?: Yes Plan: Tylenol as needed. Encourage mobility. Avoid narcotics. (6) Parkinsons Is this a current diagnosis for this admission?: Yes - Time Time Spent with patient: 35 or more minutes Medications reviewed and adjusted accordingly: Yes Anticipated discharge: SNF - vs HH Within: within 24 hours
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
[2019-10-19] MEDS: ATORVASTATIN CALCIUM 80 MG TABLET PO SCH (21:48)
[2019-10-19] MEDS: INSULIN GLARGINE,HUM.REC.ANLOG 1,000 UNIT/10 ML VIAL SUBCUT SCH (21:48)
[2019-10-20] MEDS: NORMAL SALINE 1000 ML 1,000 ML IV PRN ×2 (01:32→09:02)
[2019-10-20] MEDS: LEVOTHYROXINE SODIUM 0.05 MG TABLET PO SCH (05:27)
[2019-10-20 07:11] LABS: ANION GAP 5 (5-19); BLOOD UREA NITROGEN 10 mg/dL (7-20); CALCIUM 8.7 mg/dL (8.4-10.2); CARBON DIOXIDE 25 mmol/L (22-30); CHLORIDE 108 mmol/L (98-107); CREATINE KINASE 428 U/L (30-135); GLUCOSE 77 mg/dL (75-110); POTASSIUM 4.3 mmol/L (3.6-5.0)
[2019-10-20] MEDS: INSULIN LISPRO 100 UNIT/ML 3 ML VIAL SUBCUT SCH ×2 (08:15→12:12)
[2019-10-20] MEDS: DIVALPROEX SODIUM 500 MG TAB.SR.24H PO SCH (10:16)
[2019-10-20] MEDS: GABAPENTIN 300 MG CAPSULE PO SCH (10:16)
[2019-10-20] MEDS: FAMOTIDINE 20 MG TABLET PO SCH (10:16)
[2019-10-20] MEDS: DOCUSATE SODIUM 100 MG CAPSULE PO SCH (10:16)
[2019-10-20] MEDS: METFORMIN HCL 500 MG TABLET PO SCH (10:17)
[2019-10-20] MEDS: POTASSIUM CHLORIDE 20 MEQ PACKET PO SCH (10:17)
[2019-10-20] MEDS: ENOXAPARIN SODIUM INJ 40 MG/0.4 ML DISP.SYRIN SUBCUT SCH (10:19)
[2019-10-20 11:58] VITALS: BP 148/69
--- NOTE | 2019-10-20 16:49 | PDOC DISCHARGE SUMMARY ---
Impression - Admit/DC Date/PCP Admission Date/Primary Care Provider: 10/18/19 13:59 CHRISTIANO THRASHER PA-C Discharge Date: 10/20/19 - Discharge Diagnosis (1) Rhabdomyolysis Is this a current diagnosis for this admission?: Yes (2) Frequent falls Is this a current diagnosis for this admission?: Yes (3) Diabetes Is this a current diagnosis for this admission?: Yes (4) Muscle weakness Is this a current diagnosis for this admission?: Yes (5) Osteoarthritis Is this a current diagnosis for this admission?: Yes (6) Parkinsons Is this a current diagnosis for this admission?: Yes - Additional Information Resuscitation Status: Full Code Discharge Diet: Diabetic Discharge Activity: Activity As Tolerated, Balance Activity w/Rest, Slowly Increase Activity Referrals: CHRISTIANO THRASHER PA-C [Primary Care Provider] - 10/27/19 9:15 am (Follow up within 1 week.) Home Medications: Atorvastatin Calcium [Lipitor 80 mg Tablet] 80 mg PO QHS 02/20/19 Gabapentin [Neurontin 300 mg Capsule] 300 mg PO DAILY 02/20/19 Levothyroxine Sodium 50 mcg PO Q6AM 02/20/19 Metformin HCl [Glucophage] 1,000 mg PO BID 02/20/19 Divalproex Sodium [Depakote ER 500 mg Tab.sr] 500 mg PO Q12 10/17/19 Insulin Glargine,Hum.rec.anlog [Lantus Insulin 100 Unit/mL Insulin Pen] 40 unit SUBCUT QHS 10/17/19 Acetaminophen [Tylenol 325 mg Tablet] 650 mg PO Q4HP PRN tablet 10/20/19 History of Present Illiness History of Present Illness: Per H&P by Mario Oro PA-C: ADAM CRAIG is a 54 year old female who comes to the emergency room after having repeated falls recently. She was just in the emergency room yesterday for falling and today she fell again and had difficulty getting up so she called 911 again. Evidently she was living with her sister until about a month ago and they had an argument and the sister has moved out. Get the impression that she is not doing as well living alone. Comes in today because she says she is weak in both of her legs. CPK is elevated and this is either from the fall or possibly from being down at any rate she needs to be put in the hospital for observation status with serial CPKs for potential rhabdomyolysis. He is awake and alert she appears to be stable to be transferred to the floor she tells me all of her past medical history, in fact is a good historian. Get physical therapy to see her as well as charge planning. Hospital Course Hospital Course: (1) Rhabdomyolysis Resolved following IVF. Related to multiple falls; she did have a fall at home with several hours on the floor prior to calling for help. CK trending down; 9000-> 2800-> 1000-> 860-> 428 (2) Frequent falls Likely secondary to Parkinson's and generalized deconditioning. PT/OT consulted. Have recommended SNF placement; Patient adamantly declined. Did ask mental health services to evaluate the patient's ability to adequately assess risks of return to home where she lives independently. Has been cleared from their perspective without concern for self-decision making at this time, although, do anticipate/recommend patient begin identifying HCPOA and LTC living arrangements such as [facility] for near future needs. PAtient is discharge home with home health services. (3) Diabetes A1c 7.1% Discharged on home medication regiment. (4) Muscle weakness Secondary to Parkinson's. Evaluation management as above. (5) Osteoarthritis Tylenol as needed. Encourage mobility. Avoid narcotics. (6) Parkinsons Recommend follow up with PCP. May benefit from outpatient Neurology consultation. Physical Exam Vital Signs: Temp Pulse Resp BP Pulse Ox 98.3 F 78 18 160/86 H 99 10/20/19 07:40 10/20/19 07:40 10/20/19 07:40 10/20/19 07:40 10/20/19 07:40 Intake & Output 10/19/19 10/20/19 10/21/19 06:59 06:59 06:59 Intake Total 3400 2104 2022 Balance 3400 2104 2022 Weight 80 kg 80.2 kg 80.2 kg General appearance: PRESENT: no acute distress, disheveled, well-developed, well-nourished - Overweight Head exam: PRESENT: atraumatic, normocephalic Eye exam: PRESENT: conjunctiva pink, EOMI, PERRLA. ABSENT: scleral icterus Mouth exam: PRESENT: moist, tongue midline Teeth exam: PRESENT: dental caries, poor dentation Neck exam: ABSENT: carotid bruit, JVD, lymphadenopathy, thyromegaly Respiratory exam: PRESENT: clear to auscultation diana, symmetrical, unlabored. ABSENT: rales, rhonchi, wheezes Cardiovascular exam: PRESENT: RRR. ABSENT: diastolic murmur, rubs, systolic murmur Pulses: PRESENT: normal dorsalis pedis pul Vascular exam: PRESENT: normal capillary refill GI/Abdominal exam: PRESENT: normal bowel sounds, soft. ABSENT: distended, guarding, mass, organolmegaly, rebound, tenderness Rectal exam: PRESENT: deferred Extremities exam: PRESENT: full ROM. ABSENT: calf tenderness, clubbing, pedal edema Neurological exam: PRESENT: alert, awake, oriented to person, oriented to place, oriented to time, oriented to situation, CN II-XII grossly intact. ABSENT: motor sensory deficit Psychiatric exam: PRESENT: normal mood, unusual affect. ABSENT: homicidal ideation, suicidal ideation Skin exam: PRESENT: dry, intact, warm. ABSENT: cyanosis, rash Results Laboratory Results: WBC 7.4 10^3/uL (4.0-10.5) 10/18/19 05:40 RBC 4.45 10^6/uL (3.72-5.28) 10/18/19 05:40 Hgb 13.0 g/dL (12.0-15.5) 10/18/19 05:40 Hct 37.7 % (36.0-47.0) 10/18/19 05:40 MCV 85 fl (80-97) 10/18/19 05:40 MCH 29.3 pg (27.0-33.4) 10/18/19 05:40 MCHC 34.6 g/dL (32.0-36.0) 10/18/19 05:40 RDW 13.0 % (11.5-14.0) 10/18/19 05:40 Plt Count 254 10^3/uL (150-450) 10/18/19 05:40 Lymph % (Auto) 29.2 % (13-45) 10/18/19 05:40 [place] % (Auto) 8.0 % (3-13) 10/18/19 05:40 Eos % (Auto) 0.6 % (0-6) 10/18/19 05:40 Baso % (Auto) 1.0 % (0-2) 10/18/19 05:40 Absolute Neuts (auto) 4.5 10^3/uL (1.7-8.2) 10/18/19 05:40 Absolute Lymphs (auto) 2.1 10^3/uL (0.5-4.7) 10/18/19 05:40 Absolute Monos (auto) 0.6 10^3/uL (0.1-1.4) 10/18/19 05:40 Absolute Eos (auto) 0.0 10^3/uL (0.0-0.6) 10/18/19 05:40 Absolute Basos (auto) 0.1 10^3/uL (0.0-0.2) 10/18/19 05:40 Seg Neutrophils % 61.2 % (42-78) 10/18/19 05:40 PT 12.5 SEC (11.4-15.4) 10/17/19 13:26 INR 0.93 10/17/19 13:26 APTT 27.9 SEC (23.5-35.8) 10/18/19 05:40 Sodium 137.5 mmol/L (137-145) 10/20/19 06:19 Potassium 4.3 mmol/L (3.6-5.0) 10/20/19 06:19 Chloride 108 mmol/L (98-107) H 10/20/19 06:19 Carbon Dioxide 25 mmol/L (22-30) 10/20/19 06:19 Anion Gap 5 (5-19) 10/20/19 06:19 BUN 10 mg/dL (7-20) 10/20/19 06:19 Creatinine 0.49 mg/dL (0.52-1.25) L 10/20/19 06:19 Est GFR ( Amer) > 60 (>60) 10/20/19 06:19 Est GFR (MDRD) Non-Af > 60 (>60) 10/20/19 06:19 Glucose 77 mg/dL (75-110) 10/20/19 06:19 POC Glucose 76 mg/dL (70-110) 10/20/19 06:03 Hemoglobin A1c % 7.1 % (4.7-6.0) H 10/18/19 05:40 Calcium 8.7 mg/dL (8.4-10.2) 10/20/19 06:19 Magnesium 1.7 mg/dL (1.6-2.3) 10/18/19 05:40 Total Bilirubin 0.4 mg/dL (0.2-1.3) 10/17/19 05:04 Direct Bilirubin 0.0 mg/dL (0.0-0.4) 10/17/19 05:04 Neonat Total Bilirubin Not Reportable 10/17/19 05:04 Neonat Direct Bilirubin Not Reportable 10/17/19 05:04 Neonat Indirect Bili Not Reportable 10/17/19 05:04 AST 163 U/L (14-36) H 10/17/19 05:04 ALT 54 U/L (<35) H 10/17/19 05:04 Alkaline Phosphatase 58 U/L (38-126) 10/17/19 05:04 Creatine Kinase 428 U/L (30-135) H 10/20/19 06:19 CK-MB (CK-2) 45.60 ng/mL (<4.55) H 10/17/19 13:26 Troponin I 0.045 ng/mL 10/17/19 13:26 NT-Pro-B Natriuret Pep 460 pg/mL (<125) H 10/17/19 13:26 Total Protein 5.9 g/dL (6.3-8.2) L 10/17/19 05:04 Albumin 3.4 g/dL (3.5-5.0) L 10/17/19 05:04 TSH 6.99 uIU/mL (0.47-4.68) H 10/17/19 13:26 Urine Color YELLOW 10/17/19 05:18 Urine Appearance CLEAR 10/17/19 05:18 Urine pH 6.0 (5.0-9.0) 10/17/19 05:18 Ur Specific [place] 1.017 10/17/19 05:18 Urine Protein 100 mg/dL (NEGATIVE) H 10/17/19 05:18 Urine Glucose (UA) NEGATIVE mg/dL (NEGATIVE) 10/17/19 05:18 Urine Ketones TRACE mg/dL (NEGATIVE) H 10/17/19 05:18 Urine Blood SMALL (NEGATIVE) H 10/17/19 05:18 Urine Nitrite NEGATIVE (NEGATIVE) 10/17/19 05:18 Urine Bilirubin NEGATIVE (NEGATIVE) 10/17/19 05:18 Urine Urobilinogen NEGATIVE mg/dL (<2.0) 10/17/19 05:18 Ur Leukocyte Esterase NEGATIVE (NEGATIVE) 10/17/19 05:18 Urine WBC (Auto) 2 /HPF 10/17/19 05:18 Urine RBC (Auto) 1 /HPF 10/17/19 05:18 Squamous Epi Cells Auto <1 /HPF 10/17/19 05:18 Urine Mucus (Auto) RARE /LPF 10/17/19 05:18 Urine Ascorbic Acid NEGATIVE (NEGATIVE) 10/17/19 05:18 Urine Opiates Screen UNCONFIRMED POSITIVE 10/17/19 05:18 Urine Methadone Screen NEGATIVE 10/17/19 05:18 Ur Barbiturates Screen NEGATIVE 10/17/19 05:18 Valproic Acid 73.8 ug/mL (50.0-120.0) 10/17/19 08:56 Ur Phencyclidine Scrn NEGATIVE 10/17/19 05:18 Ur Amphetamines Screen NEGATIVE 10/17/19 05:18 U Benzodiazepines Scrn NEGATIVE 10/17/19 05:18 Urine Cocaine Screen NEGATIVE 10/17/19 05:18 U Marijuana (THC) Screen NEGATIVE 10/17/19 05:18 Serum Alcohol < 10 mg/dL (NONE DETECTED) 10/17/19 05:04 10/17/19 10/17/19 10/17/19 05:04 08:56 13:26 CK-MB (CK-2) 45.60 H Troponin I 0.078 0.056 0.045 NT-Pro-B Natriuret Pep 460 H Impressions: Knee X-Ray 10/17/19 04:52 IMPRESSION: 1. Remote right knee arthroplasty without evidence to suggest hardware failure or acute osseous abnormality. There are chronic degenerative changes of the right knee. 2. No evidence of acute osseous abnormality involving the left knee. There are chronic degenerative changes of the left knee. 3. Suspect small left suprapatellar joint effusion. Plan Plan of Treatment: Patient is discharged home in stable condition with home health services. She has been advised to speak with her primary care provider and family members about recommendations for her to transition into a long-term living situation; would certainly benefit from [facility]. She is instructed to follow-up with her primary care provider within 1 week. Take your medication as prescribed. Eat a diabetic diet. Do NOT smoke. Return to emergency department as needed for concerning symptoms. Time Spent: Greater than 30 Minutes Stroke Is this a Stroke Patient?: No Acute Heart Failure - Is this a Heart Failure Patient?: No
== END 2019-10-20 12:23 | disposition home health service (06) | DRG 566 ==
LOC: ER 03:54 → INTOOBSV 11:07 → EH 11:07 → 4S 15:50 → OBSVTOIN 10-18 13:59
PROVIDERS: ADMIT Hospitalist; ATTEND Registered Nurse
DX: T79.6XXA Traumatic ischemia of muscle, initial encounter (principal); R29.6 Repeated falls; E11.9 Type 2 diabetes mellitus without complications; G20 Parkinson's disease; Z60.2 Problems related to living alone; W19.XXXA Unspecified fall, initial encounter; Y92.009 Unspecified place in unspecified non-institutional (private) residence as the place of occurrence of the external cause; M19.90 Unspecified osteoarthritis, unspecified site; K02.9 Dental caries, unspecified; I25.10 Atherosclerotic heart disease of native coronary artery without angina pectoris; E78.5 Hyperlipidemia, unspecified; I10 Essential (primary) hypertension; E03.9 Hypothyroidism, unspecified; K21.9 Gastro-esophageal reflux disease without esophagitis; M79.7 Fibromyalgia; F90.9 Attention-deficit hyperactivity disorder, unspecified type; F41.9 Anxiety disorder, unspecified; Z96.651 Presence of right artificial knee joint; F17.210 Nicotine dependence, cigarettes, uncomplicated; N39.498 Other specified urinary incontinence; E78.00 Pure hypercholesterolemia, unspecified; Z79.899 Other long term (current) drug therapy; Z79.1 Long term (current) use of non-steroidal anti-inflammatories (NSAID); Z79.84 Long term (current) use of oral hypoglycemic drugs
CPT/HCPCS: 36415; 71045; 80048; 80053; 80164; 80307; 81001; 82550; 82553; 82962; 83036; 83735; 83880; 84443; 84484; 85025; 85610; 85730; 93005; 93010; 99285; J1650; J1815; J3490; J7030

== ENCOUNTER 2019-11-25 23:57 | Emergency (ER) | payer MEDICAID, OTHER ==
[2019-11-26] MEDS ORDERED: ACETAMINOPHEN 325 MG TABLET PO ONE ×2 (00:51→07:47)
--- NOTE | 2019-11-26 00:52 | ER Document Report ---
ED Medical Screen (RME) - General Stated Complaint: LEFT HIP PAIN Primary Care Provider: CHRISTIANO THRASHER PA-C [Primary Care Provider] - Follow up as needed Notes: Patient is a 54-year-old white female with a history of osteoarthritis, diabetes and frequent falls who presents to the emergency department with a chief complaint of left hip pain after a fall prior to arrival. Patient states that she fell out of her bed while trying to roll to the side of the bed to get up. Landed on the left lateral hip on carpet. States she normally walks with a walker. Denies any numbness, tingling or weakness. Denies any significant noticeable deformities or change in range of motion. No head injury or loss of consciousness. I have treated and performed a rapid initial assessment of this patient. A comprehensive ED assessment and evaluation of the patient, analysis of test results and completion of medical decision making process will be conducted by additional ED providers. PHYSICAL EXAMINATION: GENERAL: Well-appearing, well-nourished and in no acute distress. A&Ox4. Answers questions appropriately. TRAVEL OUTSIDE OF THE [place] IN LAST 30 DAYS: No - Related Data Allergies/Adverse Reactions: No Known Allergies Allergy (Verified 02/09/19 14:05) Past Medical History - Past Medical History Cardiac Medical History: Reports: Hx Coronary Artery Disease, Hx Hypercholesterolemia, Hx Hypertension Denies: Hx Atrial Fibrillation, Hx Congestive Heart Failure, Hx Heart Attack, Hx Peripheral Vascular Disease, Hx Pulmonary Embolism, Hx Heart Murmur Pulmonary Medical History: Reports: Hx Asthma - no meds/inhalers, last ED visit > 5 years ago, Hx Bronchitis, Hx Pneumonia - denies hospitalization Denies: Hx COPD, Hx Respiratory Failure, Hx Sleep Apnea, Hx Tuberculosis Neurological Medical History: Reports: Hx Cerebrovascular Accident Endocrine Medical History: Reports: Hx Diabetes Mellitus Type 2, Hx Hypothyroidism. Denies: Hx Graves' Disease, Hx Hyperthyroidism Renal/ Medical History: Denies: Hx End Stage Renal Disease, Hx Kidney Stones, Hx Peritoneal Dialysis Malignancy Medical History: Denies: Hx Lung Cancer GI Medical History: Reports: Hx Gastroesophageal Reflux Disease. Denies: Hx Crohn's Disease, Hx Hiatal Hernia, Hx Irritable Bowel, Hx Liver Failure, Hx Pancreatitis, Hx Ulcer Musculoskeltal Medical History: Reports Hx Arthritis, Reports Hx Fibromyalgia, Denies Hx Muscular Dystrophy, Reports Hx Musculoskeletal Deformity, Denies Hx Systemic Lupus Erythematosus Skin Medical History: Denies Hx MRSA Psychiatric Medical History: Reports: Hx Anxiety, Hx Attention Deficit Hyperactivity Disorder, Hx Depression, Hx Post Traumatic Stress Disorder Denies: Hx Bipolar Disorder, Hx Schizophrenia Traumatic Medical History: Reports: Hx Fractures Past Surgical History: Reports: Hx Section - x2, Hx Cholecystectomy - open , Hx Oral Surgery, Hx Orthopedic Surgery - right knee replacement, Hx Tubal Ligation. Denies: Hx Appendectomy, Hx Bowel Surgery, Hx Colostomy, Hx Coronary Artery Bypass Graft, Hx Gastric Bypass Surgery, Hx Herniorrhaphy, Hx Hysterectomy, Hx Mastectomy, Hx Pacemaker, Hx Tonsillectomy - Immunizations Immunizations up to date: Yes Hx Diphtheria, Pertussis, Tetanus Vaccination: Yes Physical Exam - Vital signs Vitals: Temp Pulse Resp BP Pulse Ox 97.8 F 96 20 121/76 93 11/26/19 00:45 11/26/19 00:45 11/26/19 00:45 11/26/19 00:45 11/26/19 00:45 Course - Vital Signs Vital signs: Temp Pulse Resp BP Pulse Ox 97.8 F 96 20 121/76 93 11/26/19 00:45 11/26/19 00:45 11/26/19 00:45 11/26/19 00:45 11/26/19 00:45 Doctor's Discharge - Discharge Referrals: CHRISTIANO THRASHER PA-C [Primary Care Provider] - Follow up as needed
--- NOTE | 2019-11-26 08:19 | RADIOLOGY REPORT (SQ) ---
EXAM DESCRIPTION: KNEE LEFT 4 VIEW IMAGES COMPLETED DATE/TIME: 11/26/2019 8:06 am REASON FOR STUDY: fall COMPARISON: None. NUMBER OF VIEWS: Four views. TECHNIQUE: AP, lateral, and both oblique radiographic images acquired of the left knee. LIMITATIONS: None. FINDINGS: MINERALIZATION: Normal. BONES: No acute fracture or dislocation. Tricompartment osteophytosis with [id number] medial j oint space loss. Bony exostosis extending off the medial proximal tibia. JOINT: No dislocation. No significant effusion. Possible calcified loose body within the medial com partment. SOFT TISSUES: No soft tissue swelling. No radio-opaque foreign body. OTHER: Vascular calcifications. IMPRESSION: No evidence of acute bony abnormality. Tricompartment osteoarthritis with [id number] medial joint space loss. TECHNICAL DOCUMENTATION: JOB ID: [id number] 2010 [employer]- All Rights Reserved Reading location - IP/workstation name: [email or web address]
--- NOTE | 2019-11-26 08:21 | RADIOLOGY REPORT (SQ) ---
EXAM DESCRIPTION: HIP LEFT AP/LATERAL IMAGES COMPLETED DATE/TIME: 11/26/2019 8:06 am REASON FOR STUDY: fall/pain COMPARISON: None. NUMBER OF VIEWS: Two views. TECHNIQUE: AP pelvis and additional frog-leg view of the left hip. LIMITATIONS: None. FINDINGS: MINERALIZATION: Normal. LEFT HIP: No fracture or dislocation. No suspicious osseous lesions. Superior acetabular osteophyto sis. Mild joint space loss. RIGHT HIP: No fracture or dislocation. No worrisome bone lesions. Superior acetabular osteophytosis with mild joint space loss. PUBIS AND ISCHIUM: No fracture. PELVIS: No fracture. SACRUM: No fracture or dislocation. No worrisome bone lesions. LOWER LUMBAR SPINE: No fracture or dislocation. No worrisome bone lesions. No significant disc disea se. SOFT TISSUES: Scattered pelvic phleboliths. OTHER: No other significant finding. IMPRESSION: Mild degenerative change without evidence of acute bony abnormality of the left hip. COMMENT: Pelvic fractures can often be occult on plain radiographs. If high clinical concern or kathleen bility to bear weight recommend CT or MRI. TECHNICAL DOCUMENTATION: JOB ID: [id number] 2010 [employer]- All Rights Reserved Reading location - IP/workstation name: [email or web address]
[2019-11-26] MEDS ORDERED: HYDROCODONE/ACETAMINOPHEN 5-325 MG TABLET PO ONE (09:54)
--- NOTE | 2019-11-26 10:00 | ER Document Report ---
HPI - HPI Time Seen by Provider: 11/26/19 09:37 Pain Level: 3 Context: Patient states she was attempting to get out of bed around 1:00 in the morning and slid falling out of the bed onto her right hip. Patient states that she was only on the floor for about 10 minutes and then was brought here to the emergency department. Patient states she typically walks with a walker due to history of frequent falls with her Parkinson's. Patient denies any head injury or loss of consciousness. Patient with right hip and left knee pain. Exacerbated by: Movement Relieved by: Denies Similar symptoms previously: Yes Recently seen / treated by doctor: No - CONSTITUTIONAL Constitutional: DENIES: Fever, Chills - EENT EENT: DENIES: Sore Throat, Ear Pain, Eye problems - NEURO Neurology: DENIES: Headache, Weakness, Vision blurred, Dizzinesss / Vertigo - CARDIOVASCULAR Cardiovascular: DENIES: Chest pain - RESPIRATORY Respiratory: DENIES: Trouble Breathing, Coughing - GASTROINTESTINAL Gastrointestinal: DENIES: Abdominal Pain, Black / Bloody Stools - URINARY Urinary: DENIES: Dysuria, Urgency, Frequency - REPRODUCTIVE Reproductive: DENIES: :, Postmenopausal, Abnormal bleeding / discharge - MUSCULOSKELETAL Musculoskeletal: REPORTS: Extremity pain Past Medical History - General Information source: Patient - Social History Smoking Status: Current Every Day Smoker Chew tobacco use (# tins/day): No Frequency of alcohol use: None Drug Abuse: None Occupation: none Lives with: Alone Family History: Arthritis, CAD, CVA, DM, Hyperlipidemia, Hypertension, Malignan cy, Thyroid Disfunction - Past Medical History Cardiac Medical History: Reports: Hx Coronary Artery Disease, Hx Hypercholesterolemia, Hx Hypertension Pulmonary Medical History: Reports: Hx Asthma - no meds/inhalers, last ED visit > 5 years ago, Hx Bronchitis, Hx Pneumonia - denies hospitalization Neurological Medical History: Reports: Hx Cerebrovascular Accident. Denies: None, Hx Migraine, Hx Seizures, Hx Parkinson's Disease, Other Endocrine Medical History: Reports: Hx Diabetes Mellitus Type 2, Hx Hypothyroidism Malignancy Medical History: Denies: Hx Lung Cancer GI Medical History: Reports: Hx Gastroesophageal Reflux Disease Musculoskeletal Medical History: Reports Hx Arthritis, Reports Hx Fibromyalgia, Denies Hx Muscular Dystrophy, Reports Hx Musculoskeletal Deformity, Denies Hx Systemic Lupus Erythematosus Psychiatric Medical History: Reports: Hx Anxiety, Hx Attention Deficit Hyperactivity Disorder, Hx Depression, Hx Post Traumatic Stress Disorder Traumatic Medical History: Reports: Hx Fractures Past Surgical History: Reports: Hx Section - x2, Hx Cholecystectomy - open , Hx Oral Surgery, Hx Orthopedic Surgery - right knee replacement, Hx Tubal Ligation. Denies: Hx Appendectomy, Hx Bowel Surgery, Hx Colostomy, Hx Coronary Artery Bypass Graft, Hx Gastric Bypass Surgery, Hx Herniorrhaphy, Hx Hysterectomy, Hx Mastectomy, Hx Pacemaker, Hx Tonsillectomy - Immunizations Immunizations up to date: Yes Hx Diphtheria, Pertussis, Tetanus Vaccination: Yes Vertical Provider Document - CONSTITUTIONAL Agree With Documented VS: Yes Exam Limitations: No Limitations General Appearance: WD/WN, No Apparent Distress - INFECTION CONTROL TRAVEL OUTSIDE OF THE [place] IN LAST 30 DAYS: No - HEENT HEENT: Atraumatic, Normal ENT Exam, Normocephalic - NECK Neck: Normal Inspection, Supple. negative: Lymphadenopathy-Left, Lymphadenopathy-Right - RESPIRATORY Respiratory: Breath Sounds Normal, No Respiratory Distress, Chest Non-Tender - CARDIOVASCULAR Cardiovascular: Regular Rate, Regular Rhythm Pulses: Normal: Dorsalis pedis - BACK Back: Normal Inspection Notes: No spinal midline tenderness, step-off or deformity - MUSCULOSKELETAL/EXTREMETIES Musculoskeletal/Extremeties: MAEW, Tender - Mild tenderness to lateral aspect of right hip, no ecchymosis, no deformity, patient able to be moved through full passive range of motion without any tenderness. Patient able to be moved through full passive range of motion of left hip, no obvious ecchymosis or deformity, No Edema Notes: Patient with tenderness to left knee with overlying abrasion, scar noted to anterior aspect of right knee from previous replacement surgery, no deformity, no ecchymosis, no laxity with varus or valgus maneuvers. Able to be moved through full passive range of motion without difficulty. - NEURO Level of Consciousness: Awake, Alert, Appropriate Motor/Sensory: No Motor Deficit, No Sensory Deficit - DERM Integumentary: Warm, Dry Course - Re-evaluation Re-evalutation: 11/26/19 09:59 Provider after examining patient reviewed images, patient had left hip and knee images performed. Patient states that she has bilateral hip pain, additional images ordered of the right hip. 11/26/19 11:24 Patient reports some pain improvement after pain medication was given. Patient requesting something to eat or drink. Patient encouraged to use her walker at home to assist with ambulation. Will plan for discharge and outpatient follow- up with her orthopedic doctor for any persistent pain or problems. - Vital Signs Vital signs: Temp Pulse Resp BP Pulse Ox 97.7 F 86 20 121/74 97 11/26/19 05:54 11/26/19 05:54 11/26/19 00:45 11/26/19 05:54 11/26/19 05:54 - Diagnostic Test Radiology reviewed: Image reviewed, Reports reviewed Procedures - Immobilization Left Knee Pre-Proc Neuro Vasc Exam: Normal Immobilizer type: Adama wrap Performed by: PCT Post-Proc Neuro Vasc Exam: Normal Alignment checked and good: Yes Discharge - Discharge Clinical Impression: Parkinsons, Bilateral hip pain Osteoarthritis Qualifiers: Osteoarthritis location: multiple joints Osteoarthritis type: unspecified Qualified Code(s): M15.9 - Polyosteoarthritis, unspecified Fall Qualifiers: Encounter type: initial encounter Qualified Code(s): W19.XXXA - Unspecified fall, initial encounter Left knee pain Qualifiers: Chronicity: acute Qualified Code(s): M25.562 - Pain in left knee Condition: Stable Disposition: HOME, SELF-CARE Instructions: Adama Wrap ([facility]), Arthritis ([facility]), Oral Narcotic Medication ([facility]), Sprain ([facility]) Additional Instructions: Return immediately for any new or worsening symptoms Followup with your primary care provider, call tomorrow to make a followup appointment Follow-up with your orthopedic surgeon for recheck Use your walker that you have at home to assist with ambulation Prescriptions: Hydrocodone/Acetaminophen [[place] 5-325 mg Tablet] 1 tab PO Q6 PRN #8 tablet PRN Reason: Referrals: CHRISTIANO THRASHER PA-C [Primary Care Provider] - Follow up as needed KEREN SAHNI MD [ACTIVE STAFF] - Follow up as needed
[2019-11-26 10:50] VITALS: BP 146/85
--- NOTE | 2019-11-26 11:05 | RADIOLOGY REPORT (SQ) ---
EXAM DESCRIPTION: HIP RIGHT AP/LATERAL IMAGES COMPLETED DATE/TIME: 11/26/2019 10:50 am REASON FOR STUDY: fall, r hip pain COMPARISON: Same day radiograph NUMBER OF VIEWS: One view. TECHNIQUE: Single frog-leg view of the right hip. LIMITATIONS: None. FINDINGS: MINERALIZATION: Normal. RIGHT HIP: No fracture or dislocation. No worrisome bone lesions. Mild joint space loss and osteoph ytosis. LEFT HIP: Not imaged on this projection. PUBIS AND ISCHIUM: No fracture. SACRUM: Incompletely imaged. LOWER LUMBAR SPINE: Not imaged. SOFT TISSUES: Vascular calcifications. OTHER: No other significant finding. IMPRESSION: Mild degenerative change without evidence of acute bony abnormality of the right hip. COMMENT: Pelvic fractures are often occult on plain radiographs. If high clinical concern or inabil ity to bear weight recommend CT or MR. TECHNICAL DOCUMENTATION: JOB ID: [id number] 2010 [employer]- All Rights Reserved Reading location - IP/workstation name: [email or web address]
== END 2019-11-26 12:10 | disposition home or self-care (01) ==
LOC: ER 23:57
DX: M25.551 Pain in right hip (principal); M25.552 Pain in left hip; S80.212A Abrasion, left knee, initial encounter; W06.XXXA Fall from bed, initial encounter; M15.9 Polyosteoarthritis, unspecified; G20 Parkinson's disease; I25.10 Atherosclerotic heart disease of native coronary artery without angina pectoris; I10 Essential (primary) hypertension; J45.909 Unspecified asthma, uncomplicated; E11.9 Type 2 diabetes mellitus without complications; F17.200 Nicotine dependence, unspecified, uncomplicated
CPT/HCPCS: 99283; 73502 ×2; 73564; J3490

== ENCOUNTER 2019-12-17 11:18 | Observation (INO) | payer MEDICAID, OTHER ==
--- NOTE | 2019-12-17 11:46 | ER Document Report ---
ED Medical Screen (RME) - General Chief Complaint: Fall Stated Complaint: FALL/DIZZINESS Time Seen by Provider: 12/17/19 11:45 Primary Care Provider: CHRISTIANO THRASHER PA-C [Primary Care Provider] - Follow up as needed Mode of Arrival: Medic Information source: Patient Notes: 54-year-old female presented to ED via EMS for syncopal episode at the [facility] with loss of consciousness. She states she did fall. She came in via EMS with a c-collar on. She has type 2 diabetes. She stated she had been dizzy for several days and went to the primary care and they told her that everything was okay. She now has pain to the head neck and shoulder pain. Patient denies any other discomfort. She denies drinking smoking or using any illicit drugs. I have greeted and performed a rapid initial assessment of this patient. A comprehensive ED assessment and evaluation of the patient, analysis of test results and completion of medical decision making process will be conducted by an additional ED providers. TRAVEL OUTSIDE OF THE [place] IN LAST 30 DAYS: No - Related Data Allergies/Adverse Reactions: No Known Allergies Allergy (Verified 12/17/19 11:29) Past Medical History - Past Medical History Cardiac Medical History: Reports: Hx Coronary Artery Disease, Hx Hypercholesterolemia, Hx Hypertension Denies: Hx Atrial Fibrillation, Hx Congestive Heart Failure, Hx Heart Attack, Hx Peripheral Vascular Disease, Hx Pulmonary Embolism, Hx Heart Murmur Pulmonary Medical History: Reports: Hx Asthma - no meds/inhalers, last ED visit > 5 years ago, Hx Bronchitis, Hx Pneumonia - denies hospitalization Denies: Hx COPD, Hx Respiratory Failure, Hx Sleep Apnea, Hx Tuberculosis Neurological Medical History: Reports: Hx Cerebrovascular Accident. Denies: Hx Migraine, Hx Seizures, Hx Parkinson's Disease Endocrine Medical History: Reports: Hx Diabetes Mellitus Type 2, Hx Hypothyroidism. Denies: Hx Graves' Disease, Hx Hyperthyroidism Renal/ Medical History: Denies: Hx End Stage Renal Disease, Hx Kidney Stones, Hx Peritoneal Dialysis Malignancy Medical History: Denies: Hx Lung Cancer GI Medical History: Reports: Hx Gastroesophageal Reflux Disease. Denies: Hx Crohn's Disease, Hx Hiatal Hernia, Hx Irritable Bowel, Hx Liver Failure, Hx Pancreatitis, Hx Ulcer Musculoskeltal Medical History: Reports Hx Arthritis, Reports Hx Fibromyalgia, Denies Hx Muscular Dystrophy, Reports Hx Musculoskeletal Deformity, Denies Hx Systemic Lupus Erythematosus Skin Medical History: Denies Hx MRSA Psychiatric Medical History: Reports: Hx Anxiety, Hx Attention Deficit Hyperactivity Disorder, Hx Depression, Hx Post Traumatic Stress Disorder Denies: Hx Bipolar Disorder, Hx Schizophrenia Traumatic Medical History: Reports: Hx Fractures Past Surgical History: Reports: Hx Section - x2, Hx Cholecystectomy - open , Hx Oral Surgery, Hx Orthopedic Surgery - right knee replacement, Hx Tubal Ligation. Denies: Hx Appendectomy, Hx Bowel Surgery, Hx Colostomy, Hx Coronary Artery Bypass Graft, Hx Gastric Bypass Surgery, Hx Herniorrhaphy, Hx Hysterectomy, Hx Mastectomy, Hx Pacemaker, Hx Tonsillectomy - Immunizations Immunizations up to date: Yes Hx Diphtheria, Pertussis, Tetanus Vaccination: Yes Physical Exam - Vital signs Vitals: Temp Pulse Resp BP Pulse Ox 97.6 F 98 20 134/74 H 92 12/17/19 11:24 12/17/19 11:24 12/17/19 11:24 12/17/19 11:24 12/17/19 11:24 Course - Vital Signs Vital signs: Temp Pulse Resp BP Pulse Ox 97.6 F 98 20 134/74 H 92 12/17/19 11:24 12/17/19 11:24 12/17/19 11:24 12/17/19 11:24 12/17/19 11:24 Doctor's Discharge - Discharge Referrals: CHRISTIANO THRASHER PA-C [Primary Care Provider] - Follow up as needed
[2019-12-17 11:55] LABS: ABSOLUTE LYMPHOCYTES (AUTO) 1.8 10^3/uL (0.5-4.7); ABSOLUTE MONOCYTES (AUTO) 0.6 10^3/uL (0.1-1.4); ABSOLUTE NEUT (AUTO) 5.6 10^3/uL (1.7-8.2); BASOPHILS % (AUTO) 0.5 % (0-2); EOSINOPHILS % (AUTO) 0.4 % (0-6); HEMATOCRIT 43.6 % (36.0-47.0); HEMOGLOBIN 14.7 g/dL (12.0-15.5); LYMPHOCYTES % (AUTO) 22.4 % (13-45); MEAN CORPUSCULAR HEMOGLOBIN 29.1 pg (27.0-33.4); MEAN CORPUSCULAR HGB CONC 33.6 g/dL (32.0-36.0); MEAN CORPUSCULAR VOLUME 87 fl (80-97); MONOCYTES % (AUTO) 7.4 % (3-13); PLATELET COUNT 349 10^3/uL (150-450); RED BLOOD COUNT 5.04 10^6/uL (3.72-5.28); RED CELL DISTRIBUTION WIDTH 14.8 % (11.5-14.0); SEGMENTED NEUTROPHILS % (AUTO) 69.3 % (42-78); TOTAL CELLS COUNTED % (AUTO) 100 %
[2019-12-17 12:01] LABS: ALBUMIN 3.7 g/dL (3.5-5.0); ALKALINE PHOSPHATASE 95 U/L (38-126); ANION GAP 6 (5-19); ASPARTATE AMINO TRANSFERASE 16 U/L (14-36); BILIRUBIN,TOTAL 0.4 mg/dL (0.2-1.3); BLOOD UREA NITROGEN 10 mg/dL (7-20); CALCIUM 9.3 mg/dL (8.4-10.2); CARBON DIOXIDE 30 mmol/L (22-30); CHLORIDE 103 mmol/L (98-107); CREATINE KINASE 65 U/L (30-135); GLUCOSE 153 mg/dL (75-110); POTASSIUM 4.5 mmol/L (3.6-5.0); TOTAL PROTEIN 6.8 g/dL (6.3-8.2)
[2019-12-17 12:12] LABS: CREATINE KINASE MB 2.53 ng/mL (<4.55); TROPONIN I < 0.012 ng/mL
--- NOTE | 2019-12-17 12:16 | RADIOLOGY REPORT (SQ) ---
EXAM DESCRIPTION: CT HEAD WITHOUT IMAGES COMPLETED DATE/TIME: 12/17/2019 12:00 pm REASON FOR STUDY: Fall, possible head injury COMPARISON: 02/01/2019 TECHNIQUE: Axial images acquired through the brain without intravenous contrast. Images reviewed wi th bone, brain and subdural windows. Additional sagittal and coronal reconstructions were generated. Images stored on PACS. All CT scanners at this facility use dose modulation, iterative reconstruction, and/or weight based d osing when appropriate to reduce radiation dose to as low as reasonably achievable (ALARA). [facility]: Dose Right [facility]: CareDose [facility]: Dose Right [facility]: Teradose 4D [facility]: Upstream RADIATION DOSE: CT Rad equipment meets quality standard of care and radiation dose reduction techniq ues were employed. CTDIvol: 53.2 mGy. DLP: 991 mGy-cm. mGy. LIMITATIONS: None. FINDINGS: VENTRICLES: Normal size and contour. CEREBRUM: No masses. No hemorrhage. No midline shift. No evidence for acute infarction. Few scatte red areas of low density in the white matter most likely chronic small vessel ischemic changes. CEREBELLUM: No masses. No hemorrhage. No alteration of density. No evidence for acute infarction. EXTRAAXIAL SPACES: No fluid collections. No masses. ORBITS AND GLOBE: No intra- or extraconal masses. Normal contour of globe without masses. CALVARIUM: No fracture. PARANASAL SINUSES: No fluid or mucosal thickening. SOFT TISSUES: No mass or hematoma. OTHER: No other significant finding. IMPRESSION: MILD CHRONIC MICROVASCULAR ISCHEMIA. NO ACUTE IMAGING FINDINGS IN THE BRAIN. EVIDENCE OF ACUTE STROKE: NO. COMMENT: Quality ID # [id number]: Final reports with documentation of one or more dose reduction techniques (e.g., Automated exposure control, adjustment of the mA and/or kV according to patient size, use of iterative reconstruction technique) TECHNICAL DOCUMENTATION: JOB ID: [id number] 2010 [employer]- All Rights Reserved Reading location - IP/workstation name: [email or web address]
--- NOTE | 2019-12-17 12:16 | RADIOLOGY REPORT (SQ) ---
EXAM DESCRIPTION: SHOULDER LEFT 2 OR MORE VIEWS IMAGES COMPLETED DATE/TIME: 12/17/2019 12:01 pm REASON FOR STUDY: fall, shoulder pain COMPARISON: 06/07/2017 NUMBER OF VIEWS: Three views. TECHNIQUE: Internal rotation, external rotation, and Y view images acquired of the left shoulder. LIMITATIONS: None. FINDINGS: MINERALIZATION: Normal. BONES: No acute fracture. No worrisome bone lesions. JOINTS: No dislocation. VISUALIZED LUNGS AND RIBS: No pneumothorax. No rib fracture. SOFT TISSUES: No radiopaque foreign body. OTHER: No other significant finding. IMPRESSION: NEGATIVE STUDY OF THE LEFT SHOULDER. NO RADIOGRAPHIC EVIDENCE OF ACUTE INJURY. TECHNICAL DOCUMENTATION: JOB ID: [id number] 2010 [employer]- All Rights Reserved Reading location - IP/workstation name: [email or web address]
--- NOTE | 2019-12-17 12:18 | RADIOLOGY REPORT (SQ) ---
EXAM DESCRIPTION: CT CERVICAL SPINE WITHOUT IMAGES COMPLETED DATE/TIME: 12/17/2019 12:00 pm REASON FOR STUDY: Fall, possible head injury COMPARISON: None. TECHNIQUE: Axial images acquired through the cervical spine without intravenous contrast. Images re viewed with lung, soft tissue and bone windows. Reconstructed coronal and sagittal MPR images review ed. Images stored on PACS. All CT scanners at this facility use dose modulation, iterative reconstruction, and/or weight based d osing when appropriate to reduce radiation dose to as low as reasonably achievable (ALARA). [facility]: Dose Right [facility]: CareDose [facility]: Dose Right [facility]: Teradose 4D [facility]: Smart [employer] RADIATION DOSE: CT Rad equipment meets quality standard of care and radiation dose reduction techniq ues were employed. CTDIvol: 23.8 mGy. DLP: 509 mGy-cm. mGy. LIMITATIONS: None. FINDINGS: ALIGNMENT: Anatomic. MINERALIZATION: Normal. VERTEBRAL BODIES: No fractures or dislocation. DISCS: There is now done of the C5-6 disc space with marginal osteophytes. FACETS, LATERAL MASSES, POSTERIOR ELEMENTS: No fractures. No dislocation. No acute findings. HARDWARE: None in the spine. VISUALIZED RIBS: No fractures. LUNG APICES AND SOFT TISSUES: No significant or acute findings. OTHER: No other significant finding. IMPRESSION: Degenerative disc disease and spondylosis at C5-6. No acute finding. TECHNICAL DOCUMENTATION: JOB ID: [id number] Quality ID # [id number]: Final reports with documentation of one or more dose reduction techniques (e.g., Au tomated exposure control, adjustment of the mA and/or kV according to patient size, use of iterative reconstruction technique) 2010 [employer]- All Rights Reserved Reading location - IP/workstation name: [email or web address]
--- NOTE | 2019-12-17 13:03 | EKG REPORT ---
SEVERITY:- ABNORMAL ECG - SINUS RHYTHM NONSPECIFIC T ABNORMALITIES, LATERAL LEADS : Confirmed by: Abdullahi Brady MD 17-Dec-2019 13:02:03
[2019-12-17 14:07] LABS: APPEARANCE,URINE SLIGHTLY-CLOUDY; BILIRUBIN,URINE NEGATIVE (NEGATIVE); COLOR,URINE YELLOW; GLUCOSE, URINE NEGATIVE (NEGATIVE); KETONES,URINE NEGATIVE (NEGATIVE); LEUKOCYTE ESTERASE,URINE NEGATIVE (NEGATIVE); NITRITE,URINE NEGATIVE (NEGATIVE); PROTEIN,URINE NEGATIVE (NEGATIVE); UROBILINOGEN,URINE NEGATIVE mg/dL (<2.0)
--- NOTE | 2019-12-17 16:16 | ER Document Report ---
ED Fall - General Chief Complaint: Fall Stated Complaint: FALL/DIZZINESS Time Seen by Provider: 12/17/19 11:45 Primary Care Provider: CHRISTIANO THRASHER PA-C [Primary Care Provider] - Follow up as needed Mode of Arrival: Medic Information source: Patient Notes: This 54-year-old woman presents to the emergency department with a history of a syncopal episode this morning. Apparently she was in her laundry room attempting to do laundry when she passed out. The supervisor residential in the apartment called EMS and the patient was brought to the emergency department for further evaluation and treatment. There were no signs of seizure activity, no incontinence of urine or stool. Patient denies injury to the head or neck. She does complain of shoulder pain, however, has had shoulder pain in the past. TRAVEL OUTSIDE OF THE [place] IN LAST 30 DAYS: No - Related data Allergies/Adverse Reactions: No Known Allergies Allergy (Verified 12/17/19 11:29) Past Medical History - General Information source: Patient - Social History Smoking Status: Unknown if Ever Smoked Family History: Arthritis, CAD, CVA, DM, Hyperlipidemia, Hypertension, Malignancy, Thyroid Disfunction Patient has homicidal ideation: No - Past Medical History Cardiac Medical History: Reports: Hx Coronary Artery Disease, Hx Hypercholesterolemia, Hx Hypertension Denies: Hx Atrial Fibrillation, Hx Congestive Heart Failure, Hx Heart Attack, Hx Peripheral Vascular Disease, Hx Pulmonary Embolism, Hx Heart Murmur Pulmonary Medical History: Reports: Hx Asthma - no meds/inhalers, last ED visit > 5 years ago, Hx Bronchitis, Hx Pneumonia - denies hospitalization Denies: Hx COPD, Hx Respiratory Failure, Hx Sleep Apnea, Hx Tuberculosis Neurological Medical History: Reports: Hx Cerebrovascular Accident. Denies: Hx Migraine, Hx Seizures, Hx Parkinson's Disease Endocrine Medical History: Reports: Hx Diabetes Mellitus Type 2, Hx Hypothyroidism. Denies: Hx Graves' Disease, Hx Hyperthyroidism Renal/ Medical History: Denies: Hx End Stage Renal Disease, Hx Kidney Stones, Hx Peritoneal Dialysis Malignancy Medical History: Denies: Hx Lung Cancer GI Medical History: Reports: Hx Gastroesophageal Reflux Disease. Denies: Hx Crohn's Disease, Hx Hiatal Hernia, Hx Irritable Bowel, Hx Liver Failure, Hx Pancreatitis, Hx Ulcer Musculoskeletal Medical History: Reports Hx Arthritis, Reports Hx Fibromyalgia, Denies Hx Muscular Dystrophy, Reports Hx Musculoskeletal Deformity, Denies Hx Systemic Lupus Erythematosus Skin Medical History: Denies Hx MRSA Psychiatric Medical History: Reports: Hx Anxiety, Hx Attention Deficit Hyperactivity Disorder, Hx Depression, Hx Post Traumatic Stress Disorder Denies: Hx Bipolar Disorder, Hx Schizophrenia Traumatic Medical History: Reports: Hx Fractures Past Surgical History: Reports: Hx Section - x2, Hx Cholecystectomy - o pen , Hx Oral Surgery, Hx Orthopedic Surgery - right knee replacement, Hx Tubal Ligation. Denies: Hx Appendectomy, Hx Bowel Surgery, Hx Colostomy, Hx Coronary Artery Bypass Graft, Hx Gastric Bypass Surgery, Hx Herniorrhaphy, Hx Hysterectomy, Hx Mastectomy, Hx Pacemaker, Hx Tonsillectomy - Immunizations Immunizations up to date: Yes Hx Diphtheria, Pertussis, Tetanus Vaccination: Yes Review of Systems - Review of Systems Notes: Constitutional: Negative for fever. HENT: Negative for sore throat. Eyes: Negative for visual changes. Cardiovascular: Negative for chest pain. Respiratory: Negative for shortness of breath. Gastrointestinal: Negative for abdominal pain, vomiting or diarrhea. Genitourinary: Negative for dysuria. Musculoskeletal: See HPI Skin: Negative for rash. Neurological: Negative for headaches, weakness or numbness. 10 point ROS negative except as marked above and in HPI. Physical Exam - Vital signs Vitals: Temp Pulse Resp BP Pulse Ox 97.6 F 98 20 134/74 H 92 12/17/19 11:24 12/17/19 11:24 12/17/19 11:24 12/17/19 11:24 12/17/19 11:24 - Notes Notes: PHYSICAL EXAMINATION: Physical Exam: General: Well-nourished well-developed 54-year-old female in no acute distress HEENT: NC/AT, pupils equal round and reactive to light, MM moist,nares clear, oropharynx clear, airway patent Neck: supple, no adenopathy, no masses. Good range of motion Lungs: clear, no wheezing, no rales no rhonchi CVS: Regular rate and rhythm no murmur gallop or rub Abdomen: Soft, active, nontender, no masses, no hepatosplenomegaly Ext: No edema, clubbing or cyanosis. Neuro: Alert and responsive, moving all 4 extremities on command, cranial nerves intact, no focal findings Skin: Intact no open lesions, no rash Course - Re-evaluation Re-evalutation: 12/17/19 16:14 Presents to the emergency department with syncopal episode today. Apparently no injury associated with the fall, however patient is unaware as to what triggered the episode. She has some complaint of dizziness. Symptoms may be medical device sales representative of TIA versus cardiac etiology. I have discussed the patient with the hospitalist and the patient will be brought into the hospital for furth er evaluation and treatment. - Vital Signs Vital signs: Temp Pulse Resp BP Pulse Ox 98.5 F 90 23 H 116/94 H 96 12/17/19 15:37 12/17/19 12:12 12/17/19 12:06 12/17/19 15:37 12/17/19 15:37 - Laboratory Result Diagrams: 12/17/19 11:02 12/17/19 11:02 Laboratory results interpreted by me: 12/17/19 12/17/19 11:02 11:02 RDW 14.8 H Glucose 153 H 12/17/19 16:16 I have reviewed laboratory data and used this information for the treatment decisions regarding the patient. - Diagnostic Test Radiology reviewed: Image reviewed, Reports reviewed Radiology results interpreted by me: 12/17/19 16:16 CT head: No acute intracranial hemorrhage and no acute stroke findings. CT cervical spine: Degenerative disc disease with spondylosis at C5-C6. No fracture, no compression. left shoulder x-ray: No acute fracture or dislocation seen. - EKG Interpretation by Me EKG shows normal: Sinus rhythm - Normal sinus rhythm with a rate of 95,, [place] - Normal, Intervals - Normal, ST-T Waves - No acute ST or T wave abnormalities, no findings suggestive of ischemia changes. Rate: Normal - 95 Discharge - Discharge Clinical Impression: TIA (transient ischemic attack) Syncope Qualifiers: Syncope type: unspecified Qualified Code(s): R55 - Syncope and collapse Disposition: ADMITTED INPATIENT Admitting Provider: Sam (Hospitalist) Unit Admitted: IMCU Referrals: CHRISTIANO THRASHER PA-C [Primary Care Provider] - Follow up as needed
[2019-12-17] MEDS ORDERED: ACETAMINOPHEN 325 MG TABLET PO PRN (16:53)
[2019-12-17] MEDS ORDERED: ONDANSETRON HCL INJ/PF 4 MG/2 ML SDV IV PRN (16:53)
[2019-12-17] MEDS ORDERED: NORMAL SALINE 1000 ML 1,000 ML IV PRN (16:53)
[2019-12-17] MEDS ORDERED: GLUCAGON,HUMAN RECOMB 1 MG INJ IM PRN (17:02)
[2019-12-17] MEDS ORDERED: DEXTROSE 50%-WATER 25 GM/50 ML DISP.SYRIN IV PRN ×2 (17:02)
[2019-12-17] MEDS ORDERED: DEXTROSE 40% GEL 15 GM TUBE PO PRN ×2 (17:02)
--- NOTE | 2019-12-17 17:10 | PDOC H&P ---
History of Present Illness Admission Date/PCP: 12/17/19 16:35 CHRISTIANO THRASHER PA-C Patient complains of: History of fall at home History of Present Illness: ADAM CRAIG is a 54 year old female with history of COPD, chronic smoking, hypertension, asthma, bronchitis, CVA, type 2 diabetes mellitus, arthritis, fibromyalgia anxiety disorder, depression, GERD came to the emergency room with complaint of fall at home. She is not sure whether she passed out or not. Blood to the emergency room for further evaluation. Work-up in the emergency room is negative at this time. Medical consult was requested to place her in the hospital for neuro checks, and to do the MRI along with echocardiogram. Patient agreed to stay in the hospital for further management. Past Medical History Cardiac Medical History: Reports: Coronary Artery Disease, Hyperlipidema, Hypertension Denies: Atrial Fibrillation, Congestive Heart Failure, Myocardial Infarction, Peripheral Vascular Disease, Pulmonary Embolism, Heart Murmur Pulmonary Medical History: Reports: Asthma - no meds/inhalers, last ED visit > 5 years ago, Bronchitis, Pneumonia - denies hospitalization Denies: Chronic Obstructive Pulmonary Disease (COPD), Respiratory Failure, Sleep Apnea, Tuberculosis Neurological Medical History: Denies: Migraine, Seizures Endocrine Medical History: Reports: Diabetes Mellitus Type 2, Hypothyroidism Denies: Hyperthyroidism Renal/ Medical History: Denies: End Stage Renal Disease Malignancy Medical History: Denies: Lung Cancer GI Medical History: Reports: Gastroesophageal Reflux Disease Denies: Crohn's Disease, Hiatal Hernia Musculoskeltal Medical History: Reports: Arthritis, Fibromyalgia Psychiatric Medical History: Reports: Attention Deficit Hyperactivity Disorder, Depression, Post Traumatic Stress Disorder Denies: Bipolar Disorder Past Surgical History Past Surgical History: Reports: Section - x2, Cholecystectomy - open , Orthopedic Surgery - right knee replacement, Tubal Ligation Denies: Amputation, Appendectomy, Colostomy, Coronary Artery Bypass Graft, Gastric Bypass Surgery, Herniorrhaphy, Hysterectomy, Mastectomy, Pacemaker, Tonsillectomy Social History Smoking Status: Unknown if Ever Smoked Frequency of Alcohol Use: None Hx Recreational Drug Use: No Hx Prescription Drug Abuse: No - Advance Directive Resuscitation Status: Do Not Resuscitate Family History Family History: Arthritis, CAD, CVA, DM, Hyperlipidemia, Hypertension, Malignancy, Thyroid Disfunction Parental Family History Reviewed: Yes - History of heart disease and hyp ertension Children Family History Reviewed: Yes Sibling(s) Family History Reviewed.: Yes Medication/Allergy Home Medications: Gabapentin [Neurontin 300 mg Capsule] 300 mg PO Q8 02/20/19 Levothyroxine Sodium 50 mcg PO Q6AM 02/20/19 Metformin HCl [Glucophage] 1,000 mg PO BID 02/20/19 Divalproex Sodium [Depakote ER 500 mg Tab.sr] 500 mg PO Q12 10/17/19 Cyclobenzaprine HCl [Flexeril 10 mg Tablet] 10 mg PO Q8 12/17/19 Allergies/Adverse Reactions: No Known Allergies Allergy (Verified 12/17/19 11:29) Review of Systems Constitutional: PRESENT: fatigue, weakness. ABSENT: fever(s), headache(s), night sweats Eyes: ABSENT: visual disturbances Nose, Mouth, and Throat: ABSENT: sore throat Cardiovascular: ABSENT: dyspnea on exertion, edema, orthropnea, palpitations Respiratory: ABSENT: dyspnea, hemoptysis Gastrointestinal: ABSENT: diarrhea, dysphagia, heartburn, hematemesis Genitourinary: ABSENT: dysuria, hematuria Integumentary: ABSENT: lesions, pruritus Neurological: PRESENT: dizziness, frequent falls, syncope Psychiatric: ABSENT: anxiety, depression, homidical ideation, suicidal ideation Endocrine: ABSENT: cold intolerance, heat intolerance, polydipsia, polyuria Physical Exam Vital Signs: Temp Pulse Resp BP Pulse Ox 98.5 F 90 23 H 116/94 H 96 12/17/19 15:37 12/17/19 12:12 12/17/19 12:06 12/17/19 15:37 12/17/19 15:37 Intake & Output 12/16/19 12/17/19 12/18/19 06:59 06:59 06:59 Weight 88.1 kg General appearance: PRESENT: no acute distress, well-developed Head exam: PRESENT: atraumatic Eye exam: PRESENT: PERRLA Mouth exam: PRESENT: moist, tongue midline Teeth exam: PRESENT: poor dentation Neck exam: ABSENT: carotid bruit, JVD, lymphadenopathy, thyromegaly Respiratory exam: PRESENT: decreased breath sounds Cardiovascular exam: PRESENT: RRR. ABSENT: diastolic murmur, rubs, systolic murmur GI/Abdominal exam: PRESENT: normal bowel sounds, soft. ABSENT: distended, guarding, mass, organolmegaly, rebound, tenderness Rectal exam: PRESENT: deferred Extremities exam: PRESENT: full ROM. ABSENT: calf tenderness, clubbing, pedal edema Neurological exam: PRESENT: alert, awake, oriented to person, oriented to place, oriented to time, oriented to situation, CN II-XII grossly intact. ABSENT: motor sensory deficit Psychiatric exam: PRESENT: appropriate affect, normal mood. ABSENT: homicidal ideation, suicidal ideation Results Laboratory Results: 12/17/19 11:02 12/17/19 11:02 12/17/19 12/17/19 12/17/19 11:02 11:02 13:41 WBC 8.0 RBC 5.04 Hgb 14.7 Hct 43.6 MCV 87 MCH 29.1 MCHC 33.6 RDW 14.8 H Plt Count 349 Seg Neutrophils % 69.3 Sodium 139.1 Potassium 4.5 Chloride 103 Carbon Dioxide 30 Anion Gap 6 BUN 10 Creatinine 0.72 Est GFR ( Amer) > 60 Glucose 153 H Calcium 9.3 Total Bilirubin 0.4 AST 16 Alkaline Phosphatase 95 Total Protein 6.8 Albumin 3.7 Urine Color YELLOW Urine Appearance SLIGHTLY-CLOUDY Urine pH 9.0 Ur Specific [place] 1.010 Urine Protein NEGATIVE Urine Glucose (UA) NEGATIVE Urine Ketones NEGATIVE Urine Blood NEGATIVE Urine Nitrite NEGATIVE Ur Leukocyte Esterase NEGATIVE Urine WBC (Auto) 1 Urine RBC (Auto) 0 12/17/19 12/17/19 11:02 11:02 Creatine Kinase 65 CK-MB (CK-2) 2.53 Troponin I < 0.012 Impressions: Cervical Spine CT 12/17/19 00:00 IMPRESSION: Degenerative disc disease and spondylosis at C5-6. No acute finding. Head CT 12/17/19 00:00 IMPRESSION: MILD CHRONIC MICROVASCULAR ISCHEMIA. NO ACUTE IMAGING FINDINGS IN THE BRAIN. EVIDENCE OF ACUTE STROKE: NO. Shoulder X-Ray 12/17/19 00:00 IMPRESSION: NEGATIVE STUDY OF THE LEFT SHOULDER. NO RADIOGRAPHIC EVIDENCE OF ACUTE INJURY. Assessment and Plan - Diagnosis (1) Syncope Qualifiers: Syncope type: unspecified Qualified Code(s): R55 - Syncope and collapse Is this a current diagnosis for this admission?: Yes Plan: 12/17/2019-patient is going to be admitted to [facility] for syncope and to rule out stroke. To request MRI of the brain without contrast. To restart her home medications. GI prophylaxis DVT prophylaxis initiated. To start her on insulin sliding scale. To start her on diabetic diet. Aspiration fall seizure precautions are requested. Echocardiogram will be requested. (2) TIA (transient ischemic attack) Is this a current diagnosis for this admission?: Yes Plan: 12/17/2019-patient is going to be admitted into the hospital TIA to rule out stroke. Echocardiogram MRI will be requested. CT head is negative CT of the head and neck are negative at this time. (3) Diabetes Qualifiers: Diabetes mellitus type: type 2 Diabetes mellitus buttermaker continuous churn insulin use: with residential use Is this a current diagnosis for this admission?: Yes Plan: 12/17/2019-patient is given the history of frequent falls. Physical therapy consult was requested. (4) Tobacco abuse Is this a current diagnosis for this admission?: No Plan: 12/17/2019-patient is a chronic smoker dilated smoker smoking counseling is provided. To place her on nicotine patches. - Time Anticipated discharge: Home Within: within 24 hours
[2019-12-17] MEDS: DOCUSATE SODIUM 100 MG/10 ML UDC PO SCH (18:38)
[2019-12-17] MEDS: IPRATROPIUM/ALBUTEROL 0.5-2.5 MG/3 ML AMPUL NEB SCH (19:51)
[2019-12-17] MEDS: DIVALPROEX SODIUM 500 MG TAB.SR.24H PO SCH (21:55)
[2019-12-17] MEDS: HEPARIN SOD (PORCINE) 5,000 UNIT/ML 1 ML VIAL SUBCUT SCH (21:56)
[2019-12-17] MEDS: INSULIN REG, HUMAN 100 UNIT/ML 3 ML VIAL (PYX) SUBCUT SCH (21:56)
[2019-12-17] MEDS: GABAPENTIN 300 MG CAPSULE PO SCH (21:56)
[2019-12-17] MEDS: FAMOTIDINE 20 MG TABLET PO SCH (21:56)
[2019-12-17] MEDS: CYCLOBENZAPRINE HCL 10 MG TABLET PO SCH (21:59)
[2019-12-17 22:54] LABS: URINE AMPHETAMINES SCREEN NEGATIVE; URINE BARBITURATES SCREEN NEGATIVE; URINE BENZODIAZEPINES SCREEN NEGATIVE; URINE COCAINE SCREEN NEGATIVE; URINE MARIJUANA (THC) SCREEN NEGATIVE; URINE METHADONE SCREEN NEGATIVE; URINE PHENCYCLIDINE SCREEN NEGATIVE
[2019-12-18] MEDS: IPRATROPIUM/ALBUTEROL 0.5-2.5 MG/3 ML AMPUL NEB SCH ×3 (02:06→13:37)
[2019-12-18 05:49] LABS: ABSOLUTE BASOPHILS # (AUTO) 0.1 10^3/uL (0.0-0.2); ABSOLUTE LYMPHOCYTES (AUTO) 3.2 10^3/uL (0.5-4.7); ABSOLUTE MONOCYTES (AUTO) 0.4 10^3/uL (0.1-1.4); BASOPHILS % (AUTO) 0.9 % (0-2); EOSINOPHILS % (AUTO) 0.7 % (0-6); HEMATOCRIT 37.6 % (36.0-47.0); HEMOGLOBIN 12.7 g/dL (12.0-15.5); LYMPHOCYTES % (AUTO) 47.4 % (13-45); MEAN CORPUSCULAR HEMOGLOBIN 29.3 pg (27.0-33.4); MEAN CORPUSCULAR HGB CONC 33.8 g/dL (32.0-36.0); MEAN CORPUSCULAR VOLUME 87 fl (80-97); MONOCYTES % (AUTO) 6.7 % (3-13); PLATELET COUNT 274 10^3/uL (150-450); RED BLOOD COUNT 4.34 10^6/uL (3.72-5.28); RED CELL DISTRIBUTION WIDTH 14.5 % (11.5-14.0); SEGMENTED NEUTROPHILS % (AUTO) 44.3 % (42-78); TOTAL CELLS COUNTED % (AUTO) 100 %; WHITE BLOOD COUNT 6.7 10^3/uL (4.0-10.5)
[2019-12-18] MEDS ORDERED: LEVOTHYROXINE SODIUM 0.05 MG TABLET PO SCH (06:00)
[2019-12-18 06:08] LABS: ALBUMIN 2.9 g/dL (3.5-5.0); ALKALINE PHOSPHATASE 72 U/L (38-126); ASPARTATE AMINO TRANSFERASE 14 U/L (14-36); BILIRUBIN,TOTAL 0.2 mg/dL (0.2-1.3); BLOOD UREA NITROGEN 13 mg/dL (7-20); CALCIUM 8.6 mg/dL (8.4-10.2); CHOLESTEROL 165.95 mg/dL (0-200); CREATINE KINASE 41 U/L (30-135); GLUCOSE 112 mg/dL (75-110); POTASSIUM 3.8 mmol/L (3.6-5.0); TOTAL PROTEIN 5.7 g/dL (6.3-8.2); TRIGLYCERIDES 145 mg/dL (<150)
[2019-12-18 06:12] LABS: CARBON DIOXIDE 27 mmol/L (22-30); CHLORIDE 107 mmol/L (98-107)
[2019-12-18 06:17] LABS: NT PRO BNP 156 pg/mL (<125)
[2019-12-18 06:18] LABS: AMYLASE < 30 U/L (30-110); DIRECT LDL 101 mg/dL (<100)
[2019-12-18 06:20] LABS: TROPONIN I < 0.012 ng/mL
[2019-12-18] MEDS: CYCLOBENZAPRINE HCL 10 MG TABLET PO SCH ×2 (06:31→14:40)
[2019-12-18] MEDS: GABAPENTIN 300 MG CAPSULE PO SCH ×2 (06:31→14:40)
[2019-12-18] MEDS: HEPARIN SOD (PORCINE) 5,000 UNIT/ML 1 ML VIAL SUBCUT SCH ×2 (06:32→14:31)
[2019-12-18 06:37] LABS: ANION GAP 4 (5-19)
[2019-12-18] MEDS: FAMOTIDINE 20 MG TABLET PO SCH (09:39)
[2019-12-18] MEDS: DIVALPROEX SODIUM 500 MG TAB.SR.24H PO SCH (09:39)
[2019-12-18] MEDS: DOCUSATE SODIUM 100 MG/10 ML UDC PO SCH (09:39)
--- NOTE | 2019-12-18 11:52 | EKG REPORT ---
SEVERITY:- NORMAL ECG - SINUS RHYTHM : Confirmed by: Abdullahi Brady MD 18-Dec-2019 11:52:00
[2019-12-18] MEDS: INSULIN REG, HUMAN 100 UNIT/ML 3 ML VIAL (PYX) SUBCUT SCH ×2 (12:45→14:31)
--- NOTE | 2019-12-18 12:54 | RADIOLOGY REPORT (SQ) ---
EXAM DESCRIPTION: MRI HEAD WITHOUT IMAGES COMPLETED DATE/TIME: 12/18/2019 12:46 pm REASON FOR STUDY: r/o stroke COMPARISON: None. TECHNIQUE: Multiplanar imaging includes non-contrasted T1, T2, FLAIR, and Diffusion with ADC map seq uences. Images stored on PACS. LIMITATIONS: None. FINDINGS: ANATOMY: No anomalies. Normal vascular flow voids. Pituitary fossa normal. CSF SPACES: Normal in size and contour. No hemorrhage. CEREBRUM: A few high-signal intensity lesions scattered throughout the white matter on FLAIR imaging with distribution suggesting chronic micro-vascular ischemic change. Sulci and gyri normal in size a nd contour. No evidence of hemorrhage, mass or extraaxial fluid collection. POSTERIOR FOSSA: No signal alteration. No hemorrhage. No edema, masses or mass effect. Internal domenica tory canals, cerebello-pontine angles, mastoids normal. DIFFUSION: Negative for acute or sub-acute infarction. ORBITS: No masses. Globes normal. PARANASAL SINUSES: No fluid levels. OTHER: No other significant finding. IMPRESSION: No acute findings. EVIDENCE OF ACUTE STROKE: NO. TECHNICAL DOCUMENTATION: JOB ID: [id number] 2010 [employer]- All Rights Reserved Reading location - IP/workstation name: [email or web address]
--- NOTE | 2019-12-18 13:46 | PDOC DISCHARGE SUMMARY ---
Impression - Admit/DC Date/PCP Admission Date/Primary Care Provider: 12/17/19 16:35 CHRISTIANO THRASHER PA-C Discharge Date: 12/18/19 - Discharge Diagnosis (1) Syncope Is this a current diagnosis for this admission?: Yes (2) TIA (transient ischemic attack) Is this a current diagnosis for this admission?: Yes (3) Diabetes Is this a current diagnosis for this admission?: Yes (4) Tobacco abuse Is this a current diagnosis for this admission?: No - Assessment Summary: (1) Syncope Qualifiers: Syncope type: unspecified Qualified Code(s): R55 - Syncope and collapse Is this a current diagnosis for this admission?: Yes Plan: 12/17/2019-patient is going to be admitted to [facility] for syncope and to rule out stroke. To request MRI of the brain without contrast. To restart her home medications. GI prophylaxis DVT prophylaxis initiated. To start her on insulin sliding scale. To start her on diabetic diet. Aspiration fall seizure precautions are requested. Echocardiogram will be requested. 12/18/2019-patient admitted with syncopal symptoms, CT head is negative for acute pathology CT of the neck and head is negative, MRI of the brain is negative for acute pathology. No acute events during the hospital stay. Patient is advised to continue her home medications and follow-up with PCP next week. (2) TIA (transient ischemic attack) Is this a current diagnosis for this admission?: Yes Plan: 12/17/2019-patient is going to be admitted into the hospital TIA to rule out stroke. Echocardiogram MRI will be requested. CT head is negative CT of the head and neck are negative at this time. 12/18/2019-patient admitted with a TIA work-up is negative. Echocardiogram was requested .testing is pending at this time. 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 Hemoglobin A1c 7.8. Latest blood sugar is 163. Patient is advised to continue metformin at home. Diet exercise weight loss lifestyle modifications discussed with the patient. (4) Tobacco abuse Is this a current diagnosis for this admission?: No Plan: 12/17/2019-patient is a chronic smoker dilated smoker smoking counseling is provided. To place her on nicotine patches. 5. Falls 12/17/2019-patient is given the history of frequent falls. Physical therapy consult was requested. 12/18/2019-patient has history of type 2 diabetes mellitus blood sugar is are stable. Latest blood sugar is 163. Hemoglobin A1c 7.8. Diet exercise weight loss lifestyle modifications discussed with the patient. - Additional Information Resuscitation Status: Do Not Resuscitate Discharge Diet: Diabetic Discharge Activity: Activity As Tolerated Referrals: CHRISTIANO HTRASHER PA-C [Primary Care Provider] - Follow up as needed Home Medications: Gabapentin [Neurontin 300 mg Capsule] 300 mg PO Q8 02/20/19 Levothyroxine Sodium 50 mcg PO Q6AM 02/20/19 Metformin HCl [Glucophage] 1,000 mg PO BID 02/20/19 Divalproex Sodium [Depakote ER 500 mg Tab.sr] 500 mg PO Q12 10/17/19 Cyclobenzaprine HCl [Flexeril 10 mg Tablet] 10 mg PO Q8 12/17/19 History of Present Illiness History of Present Illness: ADAM CRAIG is a 54 year old female with history of COPD, chronic smoking, hypertension, asthma, bronchitis, CVA, type 2 diabetes mellitus, arthritis, fibromyalgia anxiety disorder, depression, GERD came to the emergency room with complaint of fall at home. She is not sure whether she passed out or not. Blood to the emergency room for further evaluation. Work-up in the emergency room is negative at this time. Medical consult was requested to place her in the hospital for neuro checks, and to do the MRI along with echocardiogram. Patient agreed to stay in the hospital for further management. Hospital Course Hospital Course: 54 year old female with history of COPD, chronic smoking, hypertension, asthma, bronchitis, CVA, type 2 diabetes mellitus, arthritis, fibromyalgia anxiety disorder, depression, GERD came to the emergency room with complaint of fall at home. She is not sure whether she passed out or not. Blood to the emergency room for further evaluation. Work-up in the emergency room is negative at this time. Medical consult was requested to place her in the hospital for neuro checks, and to do the MRI along with echocardiogram. Patient agreed to stay in the hospital for further management. 12/18/2019-patient admitted with TIA/syncopal symptoms work-up is negative. Echocardiogram was requested it is pending. Patient is advised to follow-up with PCP next week. No acute pathology was noted during the hospital stay. Neurochecks are negative. Physical Exam Vital Signs: Temp Pulse Resp BP Pulse Ox 97.2 F 82 16 139/68 H 96 12/18/19 11:34 12/18/19 11:34 12/18/19 11:34 12/18/19 11:34 12/18/19 11:34 Intake & Output 12/17/19 12/18/19 12/19/19 06:59 06:59 06:59 Intake Total 218 Balance 218 Weight 88 kg General appearance: PRESENT: no acute distress, cooperative, well-developed Head exam: PRESENT: atraumatic Eye exam: PRESENT: PERRLA Ear exam: PRESENT: normal external ear exam Mouth exam: PRESENT: neck supple Teeth exam: PRESENT: poor dentation Neck exam: ABSENT: carotid bruit, JVD, lymphadenopathy, thyromegaly Respiratory exam: PRESENT: decreased breath sounds Cardiovascular exam: PRESENT: RRR. ABSENT: diastolic murmur, rubs, systolic murmur Pulses: PRESENT: normal dorsalis pedis pul GI/Abdominal exam: PRESENT: normal bowel sounds, soft. ABSENT: distended, guarding, mass, organolmegaly, rebound, tenderness Rectal exam: PRESENT: deferred Extremities exam: PRESENT: full ROM. ABSENT: calf tenderness, clubbing, pedal edema Neurological exam: PRESENT: alert, awake, oriented to person, oriented to place, oriented to time, oriented to situation, CN II-XII grossly intact. ABSENT: motor sensory deficit Psychiatric exam: PRESENT: appropriate affect, normal mood. ABSENT: homicidal ideation, suicidal ideation Results Laboratory Results: WBC 6.7 10^3/uL (4.0-10.5) 12/18/19 05:35 RBC 4.34 10^6/uL (3.72-5.28) 12/18/19 05:35 Hgb 12.7 g/dL (12.0-15.5) 12/18/19 05:35 Hct 37.6 % (36.0-47.0) 12/18/19 05:35 MCV 87 fl (80-97) 12/18/19 05:35 MCH 29.3 pg (27.0-33.4) 12/18/19 05:35 MCHC 33.8 g/dL (32.0-36.0) 12/18/19 05:35 RDW 14.5 % (11.5-14.0) H 12/18/19 05:35 Plt Count 274 10^3/uL (150-450) 12/18/19 05:35 Lymph % (Auto) 47.4 % (13-45) H 12/18/19 05:35 Tyrrell % (Auto) 6.7 % (3-13) 12/18/19 05:35 Eos % (Auto) 0.7 % (0-6) 12/18/19 05:35 Baso % (Auto) 0.9 % (0-2) 12/18/19 05:35 Absolute Neuts (auto) 3.0 10^3/uL (1.7-8.2) 12/18/19 05:35 Absolute Lymphs (auto) 3.2 10^3/uL (0.5-4.7) 12/18/19 05:35 Absolute Monos (auto) 0.4 10^3/uL (0.1-1.4) 12/18/19 05:35 Absolute Eos (auto) 0.0 10^3/uL (0.0-0.6) 12/18/19 05:35 Absolute Basos (auto) 0.1 10^3/uL (0.0-0.2) 12/18/19 05:35 Seg Neutrophils % 44.3 % (42-78) 12/18/19 05:35 Sodium 137.5 mmol/L (137-145) 12/18/19 05:35 Potassium 3.8 mmol/L (3.6-5.0) 12/18/19 05:35 Chloride 107 mmol/L (98-107) 12/18/19 05:35 Carbon Dioxide 27 mmol/L (22-30) 12/18/19 05:35 Anion Gap 4 (5-19) L 12/18/19 05:35 BUN 13 mg/dL (7-20) 12/18/19 05:35 Creatinine 0.60 mg/dL (0.52-1.25) 12/18/19 05:35 Est GFR ( Amer) > 60 (>60) 12/18/19 05:35 Est GFR (MDRD) Non-Af > 60 (>60) 12/18/19 05:35 Glucose 112 mg/dL (75-110) H 12/18/19 05:35 POC Glucose 163 mg/dL (70-110) H 12/18/19 11:34 Hemoglobin A1c % 7.8 % (4.7-6.0) H 12/18/19 05:35 Calcium 8.6 mg/dL (8.4-10.2) 12/18/19 05:35 Magnesium 1.7 mg/dL (1.6-2.3) 12/18/19 05:35 Total Bilirubin 0.2 mg/dL (0.2-1.3) 12/18/19 05:35 Direct Bilirubin 0.0 mg/dL (0.0-0.4) 12/18/19 05:35 Neonat Total Bilirubin Not Reportable 12/18/19 05:35 Neonat Direct Bilirubin Not Reportable 12/18/19 05:35 Neonat Indirect Bili Not Reportable 12/18/19 05:35 AST 14 U/L (14-36) 12/18/19 05:35 ALT 9 U/L (<35) 12/18/19 05:35 Alkaline Phosphatase 72 U/L (38-126) 12/18/19 05:35 Creatine Kinase 41 U/L (30-135) 12/18/19 05:35 CK-MB (CK-2) 2.53 ng/mL (<4.55) 12/17/19 11:02 Troponin I < 0.012 ng/mL 12/18/19 05:35 NT-Pro-B Natriuret Pep 156 pg/mL (<125) H 12/18/19 05:35 Total Protein 5.7 g/dL (6.3-8.2) L 12/18/19 05:35 Albumin 2.9 g/dL (3.5-5.0) L 12/18/19 05:35 Triglycerides 145 mg/dL (<150) 12/18/19 05:35 Cholesterol 165.95 mg/dL (0-200) 12/18/19 05:35 LDL Cholesterol Direct 101 mg/dL (<100) H 12/18/19 05:35 VLDL Cholesterol 29.0 mg/dL (10-31) 12/18/19 05:35 HDL Cholesterol 51 mg/dL (>40) 12/18/19 05:35 Amylase < 30 U/L (30-110) L 12/18/19 05:35 Lipase 24.7 U/L (23-300) 12/18/19 05:35 TSH 6.24 uIU/mL (0.47-4.68) H 12/18/19 05:35 Urine Color YELLOW 12/17/19 13:41 Urine Appearance SLIGHTLY-CLOUDY 12/17/19 13:41 Urine pH 9.0 (5.0-9.0) 12/17/19 13:41 Ur Specific [place] 1.010 12/17/19 13:41 Urine Protein NEGATIVE mg/dL (NEGATIVE) 12/17/19 13:41 Urine Glucose (UA) NEGATIVE mg/dL (NEGATIVE) 12/17/19 13:41 Urine Ketones NEGATIVE mg/dL (NEGATIVE) 12/17/19 13:41 Urine Blood NEGATIVE (NEGATIVE) 12/17/19 13:41 Urine Nitrite NEGATIVE (NEGATIVE) 12/17/19 13:41 Urine Bilirubin NEGATIVE (NEGATIVE) 12/17/19 13:41 Urine Urobilinogen NEGATIVE mg/dL (<2.0) 12/17/19 13:41 Ur Leukocyte Esterase NEGATIVE (NEGATIVE) 12/17/19 13:41 Urine WBC (Auto) 1 /HPF 12/17/19 13:41 Urine RBC (Auto) 0 /HPF 12/17/19 13:41 U Hyaline Cast (Auto) 1 /LPF 12/17/19 13:41 Urine Bacteria (Auto) TRACE /HPF 12/17/19 13:41 Squamous Epi Cells Auto 6 /HPF 12/17/19 13:41 Urine Mucus (Auto) RARE /LPF 12/17/19 13:41 Urine Ascorbic Acid NEGATIVE (NEGATIVE) 12/17/19 13:41 Urine Opiates Screen NEGATIVE 12/17/19 13:41 Urine Methadone Screen NEGATIVE 12/17/19 13:41 Ur Barbiturates Screen NEGATIVE 12/17/19 13:41 Valproic Acid 22.1 ug/mL (50.0-120.0) L 12/17/19 18:03 Ur Phencyclidine Scrn NEGATIVE 12/17/19 13:41 Ur Amphetamines Screen NEGATIVE 12/17/19 13:41 U Benzodiazepines Scrn NEGATIVE 12/17/19 13:41 Urine Cocaine Screen NEGATIVE 12/17/19 13:41 U Marijuana (THC) Screen NEGATIVE 12/17/19 13:41 12/17/19 12/17/19 12/17/19 11:02 18:03 23:30 CK-MB (CK-2) 2.53 Troponin I < 0.012 < 0.012 < 0.012 NT-Pro-B Natriuret Pep 12/18/19 05:35 CK-MB (CK-2) Troponin I < 0.012 NT-Pro-B Natriuret Pep 156 H Impressions: Cervical Spine CT 12/17/19 00:00 IMPRESSION: Degenerative disc disease and spondylosis at C5-6. No acute finding. Head CT 12/17/19 00:00 IMPRESSION: MILD CHRONIC MICROVASCULAR ISCHEMIA. NO ACUTE IMAGING FINDINGS IN THE BRAIN. EVIDENCE OF ACUTE STROKE: NO. Shoulder X-Ray 12/17/19 00:00 IMPRESSION: NEGATIVE STUDY OF THE LEFT SHOULDER. NO RADIOGRAPHIC EVIDENCE OF ACUTE INJURY. Head MRI 12/18/19 00:00 IMPRESSION: No acute findings. EVIDENCE OF ACUTE STROKE: NO. Plan Plan of Treatment: Patient is advised to continue the present management at home and follow-up with PCP next week. Time Spent: Greater than 30 Minutes Stroke Is this a Stroke Patient?: No Acute Heart Failure - Is this a Heart Failure Patient?: No
[2019-12-18 14:10] VITALS: BP 131/95
== END 2019-12-18 15:25 | disposition home health service (06) ==
LOC: ER 11:18 → INTOOBSV 16:35 → EH 16:35 → 5 18:39
PROVIDERS: ADMIT Internal Medicine; ATTEND Internal Medicine
DX: R55 Syncope and collapse (principal); G45.9 Transient cerebral ischemic attack, unspecified; E11.9 Type 2 diabetes mellitus without complications; R29.6 Repeated falls; M19.90 Unspecified osteoarthritis, unspecified site; M79.7 Fibromyalgia; I25.10 Atherosclerotic heart disease of native coronary artery without angina pectoris; E03.9 Hypothyroidism, unspecified; M25.519 Pain in unspecified shoulder; R51 Headache; M54.2 Cervicalgia; Z79.4 Long term (current) use of insulin; Z91.81 History of falling; Z66 Do not resuscitate; Z79.899 Other long term (current) drug therapy; F17.200 Nicotine dependence, unspecified, uncomplicated; Z86.73 Personal history of transient ischemic attack (TIA), and cerebral infarction without residual deficits; Z82.3 Family history of stroke; Z96.651 Presence of right artificial knee joint; Z79.890 Hormone replacement therapy; Z82.49 Family history of ischemic heart disease and other diseases of the circulatory system
CPT/HCPCS: 93005 ×2; 99285; 36415 ×2; 82553; 82962 ×2; 82150; 82550 ×2; 83690; 83735; 84443; 85025 ×2; 80053 ×2; 81001; 84484 ×2; 80164; 80307; 83036; 80061; 83880; 70551; 73030; 70450; 72125; 93010 ×2; 94640 ×2; 97530; 97161; J3490 ×11; J1644 ×2; J1815; J7030; G0378

== ENCOUNTER 2019-12-28 08:38 | Day surgery (SDC) | payer MEDICAID, OTHER ==
[~2019-12-28 08:38] MED LIST: BUPIVACAINE HCL 0.75% INJ/PF (7.5 MG/1 ML) 10 ML SDV OS PRN; CHONDR SU A NA/HYALUR INTRAOC KIT (SURGICARE) ONE; EPINEPHRINE INJ/PF 1 MG/1 ML AMPULE ONE; LIDOCAINE 1% INJ-PF (10 MG/ML) 30 ML SDV ONE; LIDOCAINE 4% INJ/PF (40 MG/ML) 5 ML AMPUL OS PRN
[2019-12-28] MEDS ORDERED: ONDANSETRON HCL INJ/PF 4 MG/2 ML SDV ONE (08:43)
[2019-12-28] MEDS ORDERED: MIDAZOLAM 2 MG/2 ML INJ ONE (08:43)
[2019-12-28] MEDS ORDERED: FENTANYL CITRATE INJ/PF 100 MCG/2 ML AMPUL ONE (08:44)
[2019-12-28] MEDS: CYCLOPENTOLATE 0.2%/PHENYLEPHRINE 1% OPH SOLN 2 ML OS PRN ×3 (09:02→09:25)
[2019-12-28] MEDS: TETRACAINE HCL 0.5% OPH SOLN 4 ML OS PRN ×2 (09:02→09:46)
[2019-12-28] MEDS: TROPICAMIDE 1% OPH SOLN 15 ML OS PRN ×3 (09:02→09:25)
[2019-12-28] MEDS: BESIFLOXACIN HCL 0.6% OPH SUSP 5 ML BOTTLE OS PRN ×4 (09:02→10:10)
[2019-12-28] MEDS: KETOROLAC TROMETHAMINE 0.45% 4 DROP/0.4 ML DROPERETTE OS PRN ×2 (09:03→09:25)
[2019-12-28] MEDS: DORZOLAMIDE HCL 2%/TIMOLOL MALEAT 0.5% OPH SOLN 10 ML OS PRN ×2 (10:10)
--- NOTE | 2019-12-28 12:19 | Operative Report ---
Operative Report-[facility] Operative Report: DATE OF SURGERY: 12/28/2019 PREOPERATIVE DIAGNOSIS: CATARACT, LEFT EYE. POSTOPERATIVE DIAGNOSIS: CATARACT, LEFT EYE. PROCEDURE PERFORMED: PHACOEMULSIFICATION WITH POSTERIOR CHAMBER INTRAOCULAR LENS, LEFT EYE. Intraocular Lens Model : ZCBOO 18.5 Total Phaco Time: 6.67 CDE SURGEON: LIGIA UMANZOR MD ANESTHESIA: TOPICAL WITH MAC. INDICATIONS FOR SURGERY: Difficultly driving at night PROCEDURE: The patient was brought to the Operating Room and placed on the operative table. Following tetracaine drops, topical anesthesia was administered. This consisted of instrument wipe pledgets soaked in a solution of 4% Xylocaine mixed with 0.75% Marcaine in a 1:2 ratio. A 2 x 1 cm pledget was placed in the superior fornix. A 1 x 1 cm pledget was placed in the inferior fornix. The eye was patched shut for 5 minutes. The patch was removed. The eye was sterilely prepped and draped in the usual manner. Lid speculum was placed in the eye. The pledgets were removed. 4-0 black silk sutures were placed around the superior and the inferior rectus muscles to be used as traction. A conjunctival peritomy was made at the 10 o'clock position. Hemostasis was obtained with bipolar cautery. A posterior limbal groove was created using a crescent knife and dissected anteriorly towards the cornea. A sharp point blade was used to create a paracentesis site at the 2 o'clock position. 0.2 cc non preserved Lidocaine was injected into the anterior chamber. A 2.4 mm keratome was used to enter the anterior chamber through the groove. Viscoelastic was injected into the anterior chamber. An anterior capsulotomy was performed using Utrata forceps in a capsulorrhexis fashion. Hydrodissection and hydrodelineation were performed. Phacoemulsification was performed in [id number] technique. Following this, the I/A unit was used to remove residual cortex. Viscoelastic was injected into the capsular bag. The Intraocular lens was placed in the capsular bag. The I/A unit was used to remove residual viscoelastic. The wound was seen to be watertight under high and low pressure, and no sutures were placed. The intraocular lens was well centered. The pressure was adjusted in the eye to normal pressure. The 4-0 black silk sutures and lid speculum were removed. The eye was shielded after Besivance,prednisolone, and Cosopt drops were placed. The patient tolerated the procedure well and was sent to the Recovery Room in good condition.
== END 2019-12-28 10:45 | disposition home or self-care (01) ==
LOC: SC 08:38
PROVIDERS: ATTEND Ophthalmology
DX: H25.813 Combined forms of age-related cataract, bilateral (principal); E11.3291 Type 2 diabetes mellitus with mild nonproliferative diabetic retinopathy without macular edema, right eye; H47.321 Drusen of optic disc, right eye; E11.9 Type 2 diabetes mellitus without complications; E03.9 Hypothyroidism, unspecified; F17.210 Nicotine dependence, cigarettes, uncomplicated; Z79.84 Long term (current) use of oral hypoglycemic drugs; Z79.899 Other long term (current) drug therapy; I10 Essential (primary) hypertension; I69.811 Memory deficit following other cerebrovascular disease; I69.854 Hemiplegia and hemiparesis following other cerebrovascular disease affecting left non-dominant side; R00.0 Tachycardia, unspecified
CPT/HCPCS: 82962; 66984; V2632; J2250; J3490 ×6; J0171; J2405; J3010

== ENCOUNTER 2020-01-16 18:53 | Emergency (ER) | payer MEDICAID ==
--- NOTE | 2020-01-16 20:37 | ER Document Report ---
ED Medical Screen (RME) - General Chief Complaint: Fall Injury Stated Complaint: FALL/HIP PAIN Time Seen by Provider: 01/16/20 20:31 Primary Care Provider: CHRISTIANO THRASHER PA-C [Primary Care Provider] - Follow up as needed Mode of Arrival: Medic Information source: Patient Notes: 55-year-old female presented to ED for falling at home. She states she falls a lot off of her bed. She states she has back, left hip, and left foot pain with swelling to the left foot and she thinks she broke her left pinky toe. States she fell yesterday and today. She states she lives at home alone and falls frequently. She states she smokes a pack a day states she does not drink alcohol or use any illicit drugs. Patient states she came in by EMS and lives by herself I have greeted and performed a rapid initial assessment of this patient. A comprehensive ED assessment and evaluation of the patient, analysis of test results and completion of medical decision making process will be conducted by an additional ED providers. TRAVEL OUTSIDE OF THE [place] IN LAST 30 DAYS: No - Related Data Allergies/Adverse Reactions: Iodinated Contrast Media Allergy (Verified 12/21/19 11:32) LOWER BP Past Medical History - General Information source: Patient - Social History Cigarette use (# per day): Yes - ppd Lives with: Alone - Past Medical History Cardiac Medical History: Reports: Hx Coronary Artery Disease, Hx Hypercholesterolemia Pulmonary Medical History: Reports: Hx Bronchitis, Hx Pneumonia - denies hospitalization Neurological Medical History: Reports: None. Denies: Hx Cerebrovascular Accident, Hx Migraine, Hx Seizures, Hx Parkinson's Disease Endocrine Medical History: Reports: Hx Diabetes Mellitus Type 2, Hx Hypothyroidism Renal/ Medical History: Reports: None Malignancy Medical History: Reports: None. Denies: Hx Lung Cancer GI Medical History: Reports: Hx Gastroesophageal Reflux Disease, Hx Colonoscopy, Hx Endoscopy Musculoskeltal Medical History: Reports Hx Arthritis, Reports Hx Fibromyalgia, Reports Hx Musculoskeletal Deformity, Reports Hx Musculoskeletal Trauma Skin Medical History: Reports None Psychiatric Medical History: Reports: Hx Anxiety, Hx Attention Deficit Hyperactivity Disorder, Hx Depression, Hx Post Traumatic Stress Disorder Traumatic Medical History: Reports: Hx Fractures - Right foot Infectious Medical History: Reports: None Past Surgical History: Reports: Hx Section - x2, Hx Cholecystectomy - open , Hx Oral Surgery, Hx Orthopedic Surgery - right knee replacement, Hx Tubal Ligation - Immunizations Immunizations up to date: Yes Hx Diphtheria, Pertussis, Tetanus Vaccination: Yes Physical Exam - Vital signs Vitals: Temp Pulse Resp BP Pulse Ox 97.8 F 93 18 139/71 H 99 01/16/20 19:12 01/16/20 19:12 01/16/20 19:12 01/16/20 19:12 01/16/20 19:12 Course - Vital Signs Vital signs: Temp Pulse Resp BP Pulse Ox 97.8 F 93 18 139/71 H 99 01/16/20 19:12 01/16/20 19:12 01/16/20 19:12 01/16/20 19:12 01/16/20 19:12 Doctor's Discharge - Discharge Referrals: CHRISTIANO THRASHER PA-C [Primary Care Provider] - Follow up as needed
[2020-01-16] MEDS ORDERED: ACETAMINOPHEN 325 MG TABLET PO ONE (20:40)
--- NOTE | 2020-01-16 21:45 | RADIOLOGY REPORT (SQ) ---
2 VIEWS OF LEFT HIP HISTORY: Left hip pain. COMPARISON: None. FINDINGS: No acute fracture or dislocation is seen. The joint spaces are preserved. Calcific tendinosis of the gluteus medius tendon. Vascular calcifications are present. IMPRESSION: No acute fracture. Calcific tendinosis of the gluteus medius tendon.
--- NOTE | 2020-01-16 21:51 | RADIOLOGY REPORT (SQ) ---
3 VIEWS OF LEFT FOOT HISTORY: Foot pain. COMPARISON: 02/09/2019 FINDINGS: There is an acute nondisplaced fracture of the fifth metatarsal with overlying soft tissue swelling. No dislocation is seen. No foreign bodies. Vascular calcifications are present. Generalized osteopenia is present. IMPRESSION: Acute nondisplaced fracture of the fifth metatarsal.
[2020-01-17 00:03] LABS: ABSOLUTE BASOPHILS # (AUTO) 0.1 10^3/uL (0.0-0.2); ABSOLUTE EOSINOPHILS # (AUTO) 0.1 10^3/uL (0.0-0.6); ABSOLUTE LYMPHOCYTES (AUTO) 2.9 10^3/uL (0.5-4.7); ABSOLUTE MONOCYTES (AUTO) 0.7 10^3/uL (0.1-1.4); ABSOLUTE NEUT (AUTO) 4.2 10^3/uL (1.7-8.2); EOSINOPHILS % (AUTO) 0.8 % (0-6); HEMOGLOBIN 13.9 g/dL (12.0-15.5); LYMPHOCYTES % (AUTO) 36.7 % (13-45); MEAN CORPUSCULAR HEMOGLOBIN 29.3 pg (27.0-33.4); MEAN CORPUSCULAR VOLUME 89 fl (80-97); MONOCYTES % (AUTO) 8.8 % (3-13); PLATELET COUNT 315 10^3/uL (150-450); RED BLOOD COUNT 4.73 10^6/uL (3.72-5.28); RED CELL DISTRIBUTION WIDTH 15.3 % (11.5-14.0); SEGMENTED NEUTROPHILS % (AUTO) 52.7 % (42-78); TOTAL CELLS COUNTED % (AUTO) 100 %
--- NOTE | 2020-01-17 00:19 | ER Document Report ---
Entered by AMINTA DUMONT SCRIBE 01/16/20 [id number] Acting as scribe for:SHAWNEE HUGGINS IV, MD ED Fall - General Chief Complaint: Hip Pain Stated Complaint: FALL/HIP PAIN Time Seen by Provider: 01/16/20 20:31 Primary Care Provider: CHRISTIANO THRASHER PA-C [Primary Care Provider] - Follow up as needed Mode of Arrival: Medic Information source: Patient Notes: This 55 year old female patient presents to the ED today with complaints of multiple falls that occurred yesterday and today. Patient states that she was laying down in bed and flipped over, landing on the floor on her left side. She reports pain to her left hip, left knee, and left foot. She mentions that she has a walker at home. Denies any other complaints. TRAVEL OUTSIDE OF THE [place] IN LAST 30 DAYS: No - Related data Allergies/Adverse Reactions: Iodinated Contrast Media Allergy (Verified 12/21/19 11:32) LOWER BP Past Medical History - General Information source: Patient - Social History Smoking Status: Current Every Day Smoker Cigarette use (# per day): Yes - ppd Smoking Education Provided: No Frequency of alcohol use: None Drug Abuse: None Lives with: Alone Family History: Reviewed & Not Pertinent, Arthritis, CAD, CVA, DM, Hyperlipidemia, Hypertension, Malignancy, Thyroid Disfunction Patient has suicidal ideation: No Patient has homicidal ideation: No - Past Medical History Cardiac Medical History: Reports: Hx Coronary Artery Disease, Hx Hypercholeste rolemia Pulmonary Medical History: Reports: Hx Bronchitis, Hx Pneumonia - denies hospitalization Endocrine Medical History: Reports: Hx Diabetes Mellitus Type 2, Hx Hypothyroidism GI Medical History: Reports: Hx Gastroesophageal Reflux Disease, Hx Colonoscopy, Hx Endoscopy Musculoskeletal Medical History: Reports Hx Arthritis, Reports Hx Fibromyalgia, Reports Hx Musculoskeletal Deformity, Reports Hx Musculoskeletal Trauma Psychiatric Medical History: Reports: Hx Anxiety, Hx Attention Deficit Hyperactivity Disorder, Hx Depression, Hx Post Traumatic Stress Disorder Traumatic Medical History: Reports: Hx Fractures - Right foot Infectious Medical History: Reports: None Past Surgical History: Reports: Hx Section - x2, Hx Cholecystectomy - open , Hx Oral Surgery, Hx Orthopedic Surgery - right knee replacement, Hx Tubal Ligation - Immunizations Immunizations up to date: Yes Hx Diphtheria, Pertussis, Tetanus Vaccination: Yes Review of Systems - Review of Systems Constitutional: No symptoms reported EENT: No symptoms reported Cardiovascular: No symptoms reported Respiratory: No symptoms reported Gastrointestinal: No symptoms reported Genitourinary: No symptoms reported Female Genitourinary: No symptoms reported Musculoskeletal: See HPI Skin: No symptoms reported Hematologic/Lymphatic: No symptoms reported Neurological/Psychological: No symptoms reported -: Yes All other systems reviewed and negative Physical Exam - Vital signs Vitals: Temp Pulse Resp BP Pulse Ox 97.8 F 93 18 139/71 H 99 01/16/20 19:12 01/16/20 19:12 01/16/20 19:12 01/16/20 19:12 01/16/20 19:12 - General General appearance: Other - Sleeping, but easily aroused In distress: None - HEENT Head: Normocephalic, Atraumatic Eyes: Normal Pupils: PERRL - Respiratory Respiratory status: No respiratory distress Chest status: Nontender Breath sounds: Normal Chest palpation: Normal - Cardiovascular Rhythm: Regular Heart sounds: Normal auscultation Murmur: No Friction rub: No Gallop: None auscultated - Abdominal Inspection: Normal Distension: No distension Bowel sounds: Normal Tenderness: Nontender - Abdomen soft Organomegaly: No organomegaly - Back Back: Normal, Nontender - Extremities General lower extremity: Normal ROM - Full passive ROM at the hip joint on the left. Able to flex LLE at the knee without difficulty. Abduction and adduction does not exacerbate the pain. No foreshortening of LLE., Other Foot: Tender - Tenderness to palpation over base of 5th metatarsal on the left foot, Edema - Bilateral - Neurological Neuro grossly intact: Yes Orientation: AAOx4 [place] Coma Scale Eye Opening: Spontaneous [place] Coma Scale Verbal: Oriented Simone Coma Scale Motor: Obeys Commands [place] Coma Scale Total: 15 - Psychological Associated symptoms: Normal affect, Normal mood - Skin Skin Temperature: Warm Skin Moisture: Dry Skin Color: Normal Course - Re-evaluation Re-evalutation: 01/17/20 00:20 Results of ED MSE discussed with patient. All questions were answered. Patient has been seen here several times for falls. Patient has a left fifth metatarsal fracture which is not indication for admission. However this MD feels that a social work consult would be in order to see what can be done in terms of improving the patient's situation at home in terms of fall prevention. This MD put in a consult with social work for the patient to be seen later today and evaluated. - Vital Signs Vital signs: Temp Pulse Resp BP Pulse Ox 97.8 F 93 14 130/92 H 96 01/16/20 19:12 01/16/20 19:12 01/16/20 23:27 01/16/20 23:27 01/16/20 23:27 - Laboratory Result Diagrams: 01/16/20 23:20 01/16/20 23:20 Laboratory results interpreted by me: 01/16/20 23:20 RDW 15.3 H - Diagnostic Test Radiology reviewed: Reports reviewed - EKG Interpretation by Me Additional EKG results interpreted by me: 01/17/20 00:22 EKG obtained on 01/17/2020 at 00 05 hours was interpreted by this MD. Findings: Normal sinus rhythm, rate 82, normal axis, P waves proceed QRS complexes, QRS co mplexes appear narrow, there are no obvious patterns of ST segment elevation or depression present to suggest acute myocardial ischemia or infarction. Impression: Normal sinus rhythm with nonspecific ST segments. Procedures - Immobilization Left Foot Time completed: 01:10 Pre-Proc Neuro Vasc Exam: Normal Immobilizer type: Short Leg Posterior Performed by: RN Post-Proc Neuro Vasc Exam: Normal Alignment checked and good: Yes Discharge - Discharge Clinical Impression: Contusion of left hip Qualifiers: Encounter type: initial encounter Qualified Code(s): S70.02XA - Contusion of left hip, initial encounter Nondisplaced fracture of fifth left metatarsal bone Qualifiers: Encounter type: initial encounter Fracture type: closed Qualified Code(s): S92.355A - Nondisplaced fracture of fifth metatarsal bone, left foot, initial encounter for closed fracture Condition: Stable Disposition: OTHER Referrals: CHRISTIANO THRASHER PA-C [Primary Care Provider] - Follow up as needed PAOLA OLIVER JR, [ACTIVE PROVISIONAL STAFF] - 01/17/20 I personally performed the services described in the documentation, reviewed and edited the documentation which was dictated to the scribe in my presence, and it accurately records my words and actions.
[2020-01-17 00:26] LABS: ALBUMIN 3.5 g/dL (3.5-5.0); ALKALINE PHOSPHATASE 75 U/L (38-126); ANION GAP 7 (5-19); ASPARTATE AMINO TRANSFERASE 15 U/L (14-36); BILIRUBIN,TOTAL 0.3 mg/dL (0.2-1.3); BLOOD UREA NITROGEN 15 mg/dL (7-20); CALCIUM 9.1 mg/dL (8.4-10.2); CARBON DIOXIDE 27 mmol/L (22-30); CHLORIDE 105 mmol/L (98-107); GLUCOSE 139 mg/dL (75-110); TOTAL PROTEIN 6.5 g/dL (6.3-8.2)
[2020-01-17] MEDS ORDERED: HYDROCODONE/ACETAMINOPHEN 5-325 MG TABLET PO ONE (03:21)
[2020-01-17 04:12] LABS: APPEARANCE,URINE CLOUDY; BILIRUBIN,URINE NEGATIVE (NEGATIVE); COLOR,URINE YELLOW; GLUCOSE, URINE NEGATIVE (NEGATIVE); KETONES,URINE NEGATIVE (NEGATIVE); LEUKOCYTE ESTERASE,URINE TRACE (NEGATIVE); NITRITE,URINE NEGATIVE (NEGATIVE); PROTEIN,URINE NEGATIVE (NEGATIVE); URINE SPECIFIC GRAVITY 1.006; UROBILINOGEN,URINE NEGATIVE mg/dL (<2.0)
--- NOTE | 2020-01-17 08:18 | EKG REPORT ---
SEVERITY:- ABNORMAL ECG - SINUS RHYTHM NONSPECIFIC T ABNORMALITIES, LATERAL LEADS : Confirmed by: Kyle Vallejo 17-Jan-2020 08:17:54
[2020-01-17 08:25] VITALS: BP 125/87
== END 2020-01-17 14:02 | disposition home or self-care (01) ==
LOC: ER 18:53
DX: S92.355D Nondisplaced fracture of fifth metatarsal bone, left foot, subsequent encounter for fracture with routine healing (principal); W19.XXXD Unspecified fall, subsequent encounter; F17.210 Nicotine dependence, cigarettes, uncomplicated; I25.10 Atherosclerotic heart disease of native coronary artery without angina pectoris; E11.9 Type 2 diabetes mellitus without complications; Z91.81 History of falling
CPT/HCPCS: 93005; 99282; 36415; 85025; 80053; 81001; 73630; 73502; 93010; J3490

== ENCOUNTER 2020-01-18 08:51 | Emergency (ER) | payer MEDICAID ==
--- NOTE | 2020-01-18 09:34 | ER Document Report ---
Entered by CHRISTY FONSECA SCRIBE 01/18/20 0924 Acting as scribe for:ADARSH HERNANDEZ MD ED Fall - General Chief Complaint: Fall Stated Complaint: FALL Time Seen by Provider: 01/18/20 09:06 Primary Care Provider: CHRISTIANO THRASHER PA-C [Primary Care Provider] - Follow up as needed Mode of Arrival: Ambulatory Information source: Patient Notes: This 55 year old female patient presents to the emergency department today with complaints of a fall prior to arrival. She was seen here two days ago on 01/16/2020 with an acute fracture of the fifth metatarsal. She reports she was weak and wobbly this morning on her walker and fell at about 8:00 AM. She denies any new injuries from the fall. TRAVEL OUTSIDE OF THE [place] IN LAST 30 DAYS: No - Related data Allergies/Adverse Reactions: Iodinated Contrast Media Allergy (Verified 12/21/19 11:32) LOWER BP Past Medical History - General Information source: Patient - Social History Smoking Status: Current Every Day Smoker Cigarette use (# per day): Yes Frequency of alcohol use: None Drug Abuse: None Lives with: Family Family History: Reviewed & Not Pertinent, Arthritis, CAD, CVA, DM, Hyperlipidemi a, Hypertension, Malignancy, Thyroid Disfunction - Past Medical History Cardiac Medical History: Reports: Hx Coronary Artery Disease, Hx Hypercholesterolemia Pulmonary Medical History: Reports: Hx Bronchitis, Hx Pneumonia - denies hospi talization Endocrine Medical History: Reports: Hx Diabetes Mellitus Type 2, Hx Hypothyroidism GI Medical History: Reports: Hx Gastroesophageal Reflux Disease, Hx Colonoscopy, Hx Endoscopy Musculoskeletal Medical History: Reports Hx Arthritis, Reports Hx Fibromyalgia, Reports Hx Musculoskeletal Deformity, Reports Hx Musculoskeletal Trauma Psychiatric Medical History: Reports: Hx Anxiety, Hx Attention Deficit Hyperactivity Disorder, Hx Depression, Hx Post Traumatic Stress Disorder Traumatic Medical History: Reports: Hx Fractures - Right foot Past Surgical History: Reports: Hx Section - x2, Hx Cholecystectomy - open , Hx Oral Surgery, Hx Orthopedic Surgery - right knee replacement, Hx Tubal Ligation - Immunizations Immunizations up to date: Yes Hx Diphtheria, Pertussis, Tetanus Vaccination: Yes Review of Systems - Review of Systems Constitutional: See HPI, Other - fall EENT: No symptoms reported Cardiovascular: No symptoms reported Respiratory: No symptoms reported Gastrointestinal: No symptoms reported Genitourinary: No symptoms reported Female Genitourinary: No symptoms reported Musculoskeletal: No symptoms reported Skin: No symptoms reported Hematologic/Lymphatic: No symptoms reported Neurological/Psychological: No symptoms reported -: Yes All other systems reviewed and negative Physical Exam - Vital signs Vitals: Temp Pulse Resp BP Pulse Ox 97.7 F 92 16 138/89 H 98 01/18/20 09:29 01/18/20 09:29 01/18/20 09:29 01/18/20 09:29 01/18/20 09:29 - Notes Notes: Physical Exam: General: Alert, appears disheveled. HEENT: Normocephalic. Atraumatic. PERRL. Extraocular movements intact. Oropharynx clear. Neck: Supple. Non-tender. Respiratory: No respiratory distress. Coarse rhonchi bilaterally. Cardiovascular: Regular rate and rhythm. Abdominal: Obese. Non-tender. No distension. Normal Bowel Sounds. Back: No gross abnormalities. Extremities: Moves all four extremities. Upper extremities: Normal inspection. Normal ROM. Lower extremities: Splint on left leg that was clean yesterday, today the bottom of the carmen wrap is very dirty, black in color. Right sole of foot is also black in color. Abrasions to right great toe with surrounding inflammation. Neurological: Normal cognition. AAOx4. Normal speech. Psychological: Normal affect. Normal Mood. Skin: See lower extremity exam Course - Re-evaluation Re-evalutation: 01/18/20 18:32 I tried to review the patient's outside pharmacy records and they were not available. Reviewing what records were available here and what medications she has been on in the past, I was able to determine that she should probably get the Depakote she has been prescribed in the past, although I do not know exactly why she takes it. She should get the Synthroid that was prescribed in the past. Her blood sugars are not significantly elevated despite receiving no medications, so I will put her on metformin 500 mg twice daily, as that should b e adequate to control her blood sugars while she is here in the emergency room. 01/18/20 18:34 commercial sales manager has been in to speak with patient. Patient is resistant to going into a nursing facility. She has Medicaid without Medicare and I am told disqualifies her for getting into a rehab facility until her foot heals. I am told she has called the 911 system 41 time so far this year, I have contacted the warhead maintenance specialist of the [facility] system to look into legal remedies to stop the patient from abusing the 911 system. She presents a dilemma in that she is unwilling to try to take care of herself, and unwilling to agree to placement in a facility that can provide her care. For now, she will remain on social hold in the emergency department. - Vital Signs Vital signs: Temp Pulse Resp BP Pulse Ox 97.7 F 92 16 138/89 H 98 01/18/20 09:29 01/18/20 09:29 01/18/20 09:29 01/18/20 09:29 01/18/20 09:29 - Laboratory Result Diagrams: 01/18/20 15:40 01/18/20 15:40 Laboratory results interpreted by me: 01/18/20 01/18/20 15:40 15:40 RDW 14.7 H Glucose 167 H Total Protein 5.6 L Albumin 2.9 L - Transfer of Care Care transferred to following provider: Dr. Nagy Discharge - Discharge Clinical Impression: Frequent falls, Unable to agree with care plan Nondisplaced fracture of fifth left metatarsal bone Qualifiers: Encounter type: initial encounter Fracture type: closed Qualified Code(s): S92.355A - Nondisplaced fracture of fifth metatarsal bone, left foot, initial encounter for closed fracture Condition: Stable Disposition: HOME-ASSISTED LIVING Referrals: CHRISTIANO THRASHER PA-C [Primary Care Provider] - Follow up as needed I personally performed the services described in the documentation, reviewed and edited the documentation which was dictated to the scribe in my presence, and it accurately records my words and actions.
[2020-01-18 16:04] LABS: ABSOLUTE LYMPHOCYTES (AUTO) 2.3 10^3/uL (0.5-4.7); ABSOLUTE MONOCYTES (AUTO) 0.6 10^3/uL (0.1-1.4); ABSOLUTE NEUT (AUTO) 3.3 10^3/uL (1.7-8.2); BASOPHILS % (AUTO) 0.7 % (0-2); EOSINOPHILS % (AUTO) 0.8 % (0-6); HEMATOCRIT 36.2 % (36.0-47.0); HEMOGLOBIN 12.3 g/dL (12.0-15.5); LYMPHOCYTES % (AUTO) 36.9 % (13-45); MEAN CORPUSCULAR HEMOGLOBIN 29.6 pg (27.0-33.4); MEAN CORPUSCULAR HGB CONC 33.9 g/dL (32.0-36.0); MEAN CORPUSCULAR VOLUME 87 fl (80-97); MONOCYTES % (AUTO) 9.5 % (3-13); PLATELET COUNT 294 10^3/uL (150-450); RED BLOOD COUNT 4.14 10^6/uL (3.72-5.28); RED CELL DISTRIBUTION WIDTH 14.7 % (11.5-14.0); SEGMENTED NEUTROPHILS % (AUTO) 52.1 % (42-78); TOTAL CELLS COUNTED % (AUTO) 100 %; WHITE BLOOD COUNT 6.3 10^3/uL (4.0-10.5)
[2020-01-18 16:10] LABS: ALBUMIN 2.9 g/dL (3.5-5.0); ALKALINE PHOSPHATASE 67 U/L (38-126); ANION GAP 6 (5-19); ASPARTATE AMINO TRANSFERASE 19 U/L (14-36); BILIRUBIN,TOTAL 0.3 mg/dL (0.2-1.3); BLOOD UREA NITROGEN 10 mg/dL (7-20); CALCIUM 8.6 mg/dL (8.4-10.2); CARBON DIOXIDE 29 mmol/L (22-30); CHLORIDE 106 mmol/L (98-107); GLUCOSE 167 mg/dL (75-110); POTASSIUM 3.8 mmol/L (3.6-5.0); TOTAL PROTEIN 5.6 g/dL (6.3-8.2)
[2020-01-18] MEDS: METFORMIN HCL 500 MG TABLET PO SCH ×2 (18:40→21:29)
[2020-01-18] MEDS: DIVALPROEX SODIUM 250 MG TABLET.DR PO SCH ×2 (18:40→21:29)
[2020-01-18] MEDS: LEVOTHYROXINE SODIUM 0.05 MG TABLET PO SCH (18:40)
[2020-01-19] MEDS: METFORMIN HCL 500 MG TABLET PO SCH ×2 (09:38→23:30)
[2020-01-19] MEDS: DIVALPROEX SODIUM 250 MG TABLET.DR PO SCH ×2 (09:38→23:30)
[2020-01-19] MEDS: LEVOTHYROXINE SODIUM 0.05 MG TABLET PO SCH (09:39)
[2020-01-19] MEDS ORDERED: ACETAMINOPHEN 325 MG TABLET PO ONE (09:55)
[2020-01-19] MEDS ORDERED: IBUPROFEN 600 MG TABLET PO ONE ×2 (09:55→18:59)
--- NOTE | 2020-01-19 16:01 | ER Document Report ---
Doctor's Note Notes: 01/19/20 15:55 Today the patient spoke with the community launchman and decided that she would agree to placement. The service desk associate Lukas Torres was made aware also. The nurse taking care of patient was concerned about some erythema developing in the left inner thigh just below the edge of the diaper. She made parenthesis type wooten around the area. When I went to see the patient she had mirror image parenthesis wooten on the other thigh from where she had held her thighs together tightly. I believe that is the cause of the erythema she was noting. When the last thighs stayed apart for a while, the reddish coloration seemed to fade. Both thighs were equally warm to touch. I will repeat her CBC and her Chem-7 to ensure that she is not showing elevation white blood cell count and to see that her electrolytes and blood sugars remain normal. rainbow trout farm manager is currently trying to get the patient into [facility].
[2020-01-19 17:28] LABS: ABSOLUTE EOSINOPHILS # (AUTO) 0.1 10^3/uL (0.0-0.6); TOTAL CELLS COUNTED % (AUTO) 100 %
[2020-01-19 17:35] LABS: ABSOLUTE LYMPHOCYTES (AUTO) 2.2 10^3/uL (0.5-4.7); ABSOLUTE MONOCYTES (AUTO) 0.5 10^3/uL (0.1-1.4); ABSOLUTE NEUT (AUTO) 3.4 10^3/uL (1.7-8.2); BASOPHILS % (AUTO) 0.6 % (0-2); HEMOGLOBIN 13.6 g/dL (12.0-15.5); LYMPHOCYTES % (AUTO) 35.1 % (13-45); MEAN CORPUSCULAR HEMOGLOBIN 29.3 pg (27.0-33.4); MEAN CORPUSCULAR HGB CONC 33.3 g/dL (32.0-36.0); MEAN CORPUSCULAR VOLUME 88 fl (80-97); MONOCYTES % (AUTO) 7.6 % (3-13); PLATELET COUNT 318 10^3/uL (150-450); RED BLOOD COUNT 4.67 10^6/uL (3.72-5.28); RED CELL DISTRIBUTION WIDTH 15.1 % (11.5-14.0); SEGMENTED NEUTROPHILS % (AUTO) 55.7 % (42-78); WHITE BLOOD COUNT 6.1 10^3/uL (4.0-10.5)
[2020-01-19 17:41] LABS: ANION GAP 6 (5-19); BLOOD UREA NITROGEN 11 mg/dL (7-20); CALCIUM 8.7 mg/dL (8.4-10.2); CARBON DIOXIDE 29 mmol/L (22-30); CHLORIDE 103 mmol/L (98-107); GLUCOSE 134 mg/dL (75-110); POTASSIUM 4.2 mmol/L (3.6-5.0)
[2020-01-20] MEDS: DIVALPROEX SODIUM 250 MG TABLET.DR PO SCH ×2 (10:44→21:41)
[2020-01-20] MEDS: METFORMIN HCL 500 MG TABLET PO SCH ×2 (10:44→21:41)
[2020-01-20] MEDS: LEVOTHYROXINE SODIUM 0.05 MG TABLET PO SCH (10:44)
[2020-01-20 12:18] LABS: APPEARANCE,URINE CLEAR; BILIRUBIN,URINE NEGATIVE (NEGATIVE); COLOR,URINE STRAW; GLUCOSE, URINE 150 mg/dL (NEGATIVE); KETONES,URINE NEGATIVE (NEGATIVE); LEUKOCYTE ESTERASE,URINE NEGATIVE (NEGATIVE); NITRITE,URINE NEGATIVE (NEGATIVE); PROTEIN,URINE NEGATIVE (NEGATIVE); URINE SPECIFIC GRAVITY 1.006; UROBILINOGEN,URINE NEGATIVE mg/dL (<2.0)
--- NOTE | 2020-01-20 16:09 | ER Document Report ---
Doctor's Note Notes: 01/20/20 16:09 Patient examined is now. Skin is warm and dry. Heart regular rate and rhythm. Lungs are clear auscultation bilaterally. Abdomen soft nontender nondistended. She is resting comfortably in the bed and just finished lunch. She asked if she could have a diet Coke. Social work is currently working on placement and believes that may have a facility ready tomorrow. Patient was relayed this information and was in agreement.
[2020-01-20] MEDS ORDERED: ACETAMINOPHEN 325 MG TABLET PO ONE (21:29)
[2020-01-21] MEDS: DIVALPROEX SODIUM 250 MG TABLET.DR PO SCH ×2 (10:40→21:43)
[2020-01-21] MEDS: METFORMIN HCL 500 MG TABLET PO SCH ×2 (10:40→21:43)
[2020-01-21] MEDS: LEVOTHYROXINE SODIUM 0.05 MG TABLET PO SCH (10:40)
[2020-01-21] MEDS ORDERED: ACETAMINOPHEN 325 MG TABLET PO ONE (17:49)
[2020-01-22] MEDS: DIVALPROEX SODIUM 250 MG TABLET.DR PO SCH ×2 (10:13→21:37)
[2020-01-22] MEDS: LEVOTHYROXINE SODIUM 0.05 MG TABLET PO SCH (10:13)
[2020-01-22] MEDS: METFORMIN HCL 500 MG TABLET PO SCH ×2 (10:14→21:37)
--- NOTE | 2020-01-22 12:17 | ER Document Report ---
Doctor's Note Notes: 01/22/20 12:15 Patient seen and examined. She had just finished eating breakfast. She complains of pain in her left foot. She states that she has no other issues. She ate her breakfast, states "I did not like the eggs." Vital signs reviewed. Patient is a 35-year-old female who appears her stated age in no acute distress. Heart is regular rate and rhythm, lungs are clear to auscultation bilaterally. Examination left lower extremity yields a posterior splint in place, neurovascularly intact distally. Patient is in for frequent falls, case management currently attending to this patient. PRN Tylenol and scheduled Mobic was ordered for this patient to help with pain. Awaiting placement.
[2020-01-22] MEDS: ACETAMINOPHEN 325 MG TABLET PO PRN ×2 (13:03→17:04)
[2020-01-22] MEDS: MELOXICAM 7.5 MG TABLET PO SCH ×2 (13:41→18:21)
[2020-01-23] MEDS: DIVALPROEX SODIUM 250 MG TABLET.DR PO SCH ×2 (10:08→22:29)
[2020-01-23] MEDS: ACETAMINOPHEN 325 MG TABLET PO PRN ×2 (10:08→17:16)
[2020-01-23] MEDS: LEVOTHYROXINE SODIUM 0.05 MG TABLET PO SCH (10:08)
[2020-01-23] MEDS: METFORMIN HCL 500 MG TABLET PO SCH ×2 (10:10→22:29)
[2020-01-23] MEDS: MELOXICAM 7.5 MG TABLET PO SCH ×2 (10:40→19:07)
--- NOTE | 2020-01-23 20:32 | ER Document Report ---
Doctor's Note Notes: 01/23/20 20:30 Patient seen and examined. This is a 55-year-old female awaiting placement, a social hold here in the emergency department. She did have a few loose bowel movements today. She states her abdomen feels "gassy." She states to me also, regarding the pain pill she is receiving, that she wonders "how strong it is." She states to me that "I like it, but I wonder if I need something more powerful." She states that at this time she has no pain. Vital signs reviewed. Patient is awake and alert, cooperative examiner. Head is normocephalic and atraumatic, heart is regular rate and rhythm, lungs are clear to auscultation bilaterally. Abdomen is soft, nontender, normoactive bowel sounds. Neurovascularly intact to splinted left lower extremity. I will go ahead and order labs to be performed tomorrow morning. She has not had labs in 3 days. She has had some loose bowel movements. Otherwise, by all reports she is eating and drinking. She is taking her regular medications. She did have a PT evaluation today, she does need a full assist, will likely qualify for SNF care based on their assessment. Awaiting further input from case management.
[2020-01-23] MEDS: SIMETHICONE 80 MG TAB.CHEW PO PRN (22:28)
[2020-01-24] MEDS: MELOXICAM 7.5 MG TABLET PO SCH ×2 (10:07→18:37)
[2020-01-24] MEDS: DIVALPROEX SODIUM 250 MG TABLET.DR PO SCH ×2 (10:07→22:06)
[2020-01-24] MEDS: METFORMIN HCL 500 MG TABLET PO SCH ×2 (10:07→22:06)
[2020-01-24] MEDS: LEVOTHYROXINE SODIUM 0.05 MG TABLET PO SCH (10:07)
[2020-01-24] MEDS: ACETAMINOPHEN 325 MG TABLET PO PRN (15:48)
[2020-01-24] MEDS: SIMETHICONE 80 MG TAB.CHEW PO PRN (18:37)
--- NOTE | 2020-01-24 19:41 | ER Document Report ---
Doctor's Note Notes: 01/24/20 19:39 Provider note for Lang Lemus 55-year-old female in room #16. Patient is doing well watching SpongeBob on television but her main complaint is being here since Friday and having to watch television and eat chicken that was on her dinner plate tonight. Actually nurse advised it was roast beef and not chicken. Patient denies any chest pain headache nuchal rigidity abdominal pain extremity problems nausea vomiting fever chills. Physical exam unchanged from last exam. Patient resting comfortably. Patient is here on social hold because of frequent falls and will hopefully be disposition to assisted living.
[2020-01-24 21:37] LABS: ABSOLUTE BASOPHILS # (AUTO) 0.1 10^3/uL (0.0-0.2); ABSOLUTE EOSINOPHILS # (AUTO) 0.1 10^3/uL (0.0-0.6); ABSOLUTE LYMPHOCYTES (AUTO) 2.8 10^3/uL (0.5-4.7); ABSOLUTE MONOCYTES (AUTO) 0.5 10^3/uL (0.1-1.4); ABSOLUTE NEUT (AUTO) 4.2 10^3/uL (1.7-8.2); BASOPHILS % (AUTO) 0.7 % (0-2); EOSINOPHILS % (AUTO) 0.9 % (0-6); HEMATOCRIT 41.1 % (36.0-47.0); HEMOGLOBIN 13.9 g/dL (12.0-15.5); LYMPHOCYTES % (AUTO) 36.9 % (13-45); MEAN CORPUSCULAR HEMOGLOBIN 29.6 pg (27.0-33.4); MEAN CORPUSCULAR HGB CONC 33.8 g/dL (32.0-36.0); MEAN CORPUSCULAR VOLUME 88 fl (80-97); MONOCYTES % (AUTO) 7.1 % (3-13); PLATELET COUNT 313 10^3/uL (150-450); RED CELL DISTRIBUTION WIDTH 14.4 % (11.5-14.0); SEGMENTED NEUTROPHILS % (AUTO) 54.4 % (42-78); TOTAL CELLS COUNTED % (AUTO) 100 %; WHITE BLOOD COUNT 7.6 10^3/uL (4.0-10.5)
[2020-01-24 21:55] LABS: ALBUMIN 3.1 g/dL (3.5-5.0); ALKALINE PHOSPHATASE 67 U/L (38-126); ANION GAP 8 (5-19); ASPARTATE AMINO TRANSFERASE 26 U/L (14-36); BILIRUBIN,DIRECT 0.1 mg/dL (0.0-0.4); BILIRUBIN,TOTAL 0.4 mg/dL (0.2-1.3); BLOOD UREA NITROGEN 17 mg/dL (7-20); CALCIUM 8.5 mg/dL (8.4-10.2); CARBON DIOXIDE 24 mmol/L (22-30); CHLORIDE 99 mmol/L (98-107); GLUCOSE 138 mg/dL (75-110); POTASSIUM 4.2 mmol/L (3.6-5.0); TOTAL PROTEIN 5.9 g/dL (6.3-8.2)
[2020-01-25] MEDS: MELOXICAM 7.5 MG TABLET PO SCH ×2 (10:23→18:19)
[2020-01-25] MEDS: METFORMIN HCL 500 MG TABLET PO SCH ×2 (10:23→21:33)
[2020-01-25] MEDS: DIVALPROEX SODIUM 250 MG TABLET.DR PO SCH ×2 (10:23→21:33)
[2020-01-25] MEDS: LEVOTHYROXINE SODIUM 0.05 MG TABLET PO SCH (10:23)
--- NOTE | 2020-01-25 10:37 | ER Document Report ---
Doctor's Note Notes: 01/25/20 10:36 SOCIAL HOLD NOTE 55-year-old female with history of dementia remains in ED awaiting placement. No new specific complaints at this time. Vital signs are stable. Patient awake and alert and oriented to person place but not time as per her apparent baseline. Her chest is clear. Her cardiac rhythm is regular without murmur gallop or rub. She has a mild resting tremor of the left upper extremity. Discharge planning team continues to work on placement issues.
[2020-01-25] MEDS ORDERED: TUBERCULIN,PURIF.PROT.DERIV. 5 TU/0.1 ML TEST 1 ML VIAL ID ONE (14:48)
[2020-01-25] MEDS: ACETAMINOPHEN 325 MG TABLET PO PRN (15:10)
[2020-01-26] MEDS: LEVOTHYROXINE SODIUM 0.05 MG TABLET PO SCH (09:23)
[2020-01-26] MEDS: MELOXICAM 7.5 MG TABLET PO SCH ×2 (09:23→18:37)
[2020-01-26] MEDS: METFORMIN HCL 500 MG TABLET PO SCH ×2 (09:23→22:30)
[2020-01-26] MEDS: DIVALPROEX SODIUM 250 MG TABLET.DR PO SCH ×2 (09:23→22:29)
--- NOTE | 2020-01-26 18:03 | ER Document Report ---
Doctor's Note Notes: 01/26/20 18:02 warehouse assembly worker. coordinating dispostion. FL-2 form has been completed for placement.
[2020-01-26] MEDS: ACETAMINOPHEN 325 MG TABLET PO PRN (18:38)
[2020-01-27] MEDS: LEVOTHYROXINE SODIUM 0.05 MG TABLET PO SCH (10:40)
[2020-01-27] MEDS: MELOXICAM 7.5 MG TABLET PO SCH ×2 (10:40→19:01)
[2020-01-27] MEDS: DIVALPROEX SODIUM 250 MG TABLET.DR PO SCH ×2 (10:40→22:27)
[2020-01-27] MEDS: METFORMIN HCL 500 MG TABLET PO SCH ×2 (10:40→22:27)
--- NOTE | 2020-01-27 15:09 | ER Document Report ---
Doctor's Note Notes: 01/27/20 15:09 Patient resting comfortably today. She has been eating and drinking. She is also been participating in physical therapy and walk 75 feet today. Patient is unlikely to go anywhere for the next several days and is due for an orthopedic consultation. I did discuss the case with Dr. Guillen the orthopedist today. He states he will see the patient in the emergency department tomorrow. In the meantime he recommends that we place the patient in a walker boot. This has been ordered.
[2020-01-27] MEDS: ACETAMINOPHEN 325 MG TABLET PO PRN (19:01)
[2020-01-28] MEDS: LEVOTHYROXINE SODIUM 0.05 MG TABLET PO SCH (09:45)
[2020-01-28] MEDS: DIVALPROEX SODIUM 250 MG TABLET.DR PO SCH ×2 (09:45→21:55)
[2020-01-28] MEDS: MELOXICAM 7.5 MG TABLET PO SCH ×2 (09:45→17:06)
[2020-01-28] MEDS: METFORMIN HCL 500 MG TABLET PO SCH ×2 (09:45→21:56)
--- NOTE | 2020-01-28 11:30 | PDOC CONSULTATION ---
Consultation Consult Date: 01/28/20 Provider Consulted: PAOLA OLIVER JR History of Present Illness Admission Date/PCP: CHRISTIANO THRASHER PA-C Patient complains of: left foot pain History of Present Illness: ADAM CRAIG is a 55 year old female with a history of multiple falls. She fell on 01/16/20 sustaining a left 5th metatarsal shaft fx and returned again on 01/17. Since that time she has been in the ER awaiting placement. She has been ambulating in a posterior splint partial weightbearing on her left lower extremity since that time. She reports improvement in her ability to ambulate with the assistance of physical therapy. She is using assistive device. She reports pain is localized to the left foot, no associated pain elsewhere in her body at this time. Pain is 3 out of 5, aching in nature, worse with activity, improved with rest and pain medication. Past Medical History Cardiac Medical History: Reports: Coronary Artery Disease, Hyperlipidema Pulmonary Medical History: Reports: Bronchitis, Pneumonia - denies hospitalization Neurological Medical History: Denies: Migraine, Seizures Endocrine Medical History: Reports: Diabetes Mellitus Type 2, Hypothyroidism Malignancy Medical History: Denies: Lung Cancer GI Medical History: Reports: Gastroesophageal Reflux Disease Musculoskeltal Medical History: Reports: Arthritis, Fibromyalgia Psychiatric Medical History: Reports: Attention Deficit Hyperactivity Disorder, Depression, Post Traumatic Stress Disorder Hematology: Denies: Anemia, Sickle Cell Disease Past Surgical History Past Surgical History: Reports: Section - x2, Cholecystectomy - open , Orthopedic Surgery - right knee replacement, Tubal Ligation Denies: Amputation Social History Lives with: Family Smoking Status: Current Every Day Smoker Frequency of Alcohol Use: None Hx Recreational Drug Use: No Drugs: None Hx Prescription Drug Abuse: No Family History Family History: Reviewed & Not Pertinent, Arthritis, CAD, CVA, DM, Hyperlipidemia, Hypertension, Malignancy, Thyroid Disfunction Parental Family History Reviewed: No Children Family History Reviewed: NA Sibling(s) Family History Reviewed.: NA Medication/Allergy Home Medications: Gabapentin [Neurontin 300 mg Capsule] 300 mg PO Q8 02/20/19 Levothyroxine Sodium 50 mcg PO Q6AM 02/20/19 Metformin HCl [Glucophage] 1,000 mg PO BID 02/20/19 Divalproex Sodium [Depakote ER 500 mg Tab.sr] 500 mg PO Q12 10/17/19 Cyclobenzaprine HCl [Flexeril 10 mg Tablet] 10 mg PO Q8 12/17/19 Insulin Glargine,Hum.rec.anlog [Lantus Insulin 100 Unit/1 ml 10 ml] 40 unit SUBCUT QHS 12/21/19 Moxifloxacin HCl [Vigamox 0.5% Oph Soln 3 ml] 1 drop OS TID 12/21/19 Nepafenac [Ilevro] 1 drop OS DAILY 12/21/19 Allergies/Adverse Reactions: Iodinated Contrast Media Allergy (Verified 12/21/19 11:32) LOWER BP Review of Systems Review of Systems: Constitutional: ABSENT: anorexia, chills, night sweats Cardiovascular: ABSENT: chest pain Respiratory: ABSENT: dyspnea Gastrointestinal: ABSENT: vomiting Genitourinary: ABSENT: dysuria Integumentary: ABSENT: rash Neurological: ABSENT: confusion, memory loss, numbness Psychiatric: ABSENT: hallucinations Hematologic/Lymphatic: ABSENT: easy bleeding Physical Exam Vital Signs: Temp Pulse Resp BP Pulse Ox 97.6 F 83 20 130/67 H 95 01/28/20 07:00 01/28/20 07:00 01/28/20 07:00 01/28/20 07:00 01/28/20 07:00 Physical Exam: General appearance: PRESENT: no acute distress, moderately cooperative, well- nourished, disheveled Head exam: PRESENT: atraumatic, normocephalic Eye exam: PRESENT: EOMI Ear exam: PRESENT: normal external ear exam Mouth exam: PRESENT: neck supple Neck exam: ABSENT: tracheal deviation Respiratory exam: PRESENT: symmetrical, unlabored. ABSENT: accessory muscle use, wheezes Pulses: PRESENT: normal radial pulses, normal dorsalis pedis pulse Vascular exam: PRESENT: normal capillary refill GI/Abdominal exam: ABSENT: distended, firm Extremities exam: PRESENT: full ROM of bilateral shoulders, elbows wrists, knees, hips and ankles without pain Musculoskeletal exam: PRESENT: full ROM, normal inspection of all 4 extremities aside from that noted below. Neurological exam: PRESENT: alert, awake, oriented to person, oriented to place, oriented to time Psychiatric exam: PRESENT: appropriate affect. ABSENT: agitated Focused psych exam: ABSENT: catatonic Skin exam: PRESENT: intact. ABSENT: dry All as above aside from that noted in the HPI and the following: Left lower extremity Neurovascular intact Compartments soft Capillary refill less than 2 seconds Pain to palpation of the lateral border of the foot Full range of motion of ankle with pain at extremes. Skin intact Results Laboratory Results: 01/24/20 21:25 01/24/20 21:25 Assessment & Plan - Diagnosis (1) Displaced fracture of fifth metatarsal bone, left foot, initial encounter for closed fracture Is this a current diagnosis for this admission?: Yes Plan: Patient is weightbearing as tolerated She should be using a cam walker boot at all times when ambulating. May return to my office in 3 to 4 weeks for subsequent x-ray May wean out of the cam walker boot at week 5 pending further x-rays
[2020-01-28] MEDS: ACETAMINOPHEN 325 MG TABLET PO PRN (18:34)
--- NOTE | 2020-01-28 19:29 | ER Document Report ---
Doctor's Note Notes: 01/28/20 19:28 Social hold note Patient was seen by orthopedics today and she has been placed in a cam boot and is ambulating with this. No new problems are noted. Discharge planning team continues to work on [facility] placement.
[2020-01-29] MEDS: ACETAMINOPHEN 325 MG TABLET PO PRN ×2 (01:51→17:25)
[2020-01-29] MEDS: MELOXICAM 7.5 MG TABLET PO SCH ×2 (08:33→18:53)
[2020-01-29] MEDS: LEVOTHYROXINE SODIUM 0.05 MG TABLET PO SCH (09:18)
[2020-01-29] MEDS: METFORMIN HCL 500 MG TABLET PO SCH ×2 (09:18→22:03)
[2020-01-29] MEDS: DIVALPROEX SODIUM 250 MG TABLET.DR PO SCH ×2 (09:18→22:03)
--- NOTE | 2020-01-29 17:53 | ER Document Report ---
Doctor's Note Notes: 01/29/20 17:52 Patient has been seen and evaluated. Vital signs are stable. Patient is in no obvious acute distress. Orthopedics has seen in consult with the patient and place the patient in a cam boot. Awaiting social worker psychiatric evaluation and placement.
[2020-01-29] MEDS ORDERED: DOCUSATE SODIUM 100 MG/10 ML UDC PO ONE (18:40)
[2020-01-30] MEDS: METFORMIN HCL 500 MG TABLET PO SCH (10:13)
[2020-01-30] MEDS: DIVALPROEX SODIUM 250 MG TABLET.DR PO SCH (10:13)
[2020-01-30] MEDS: LEVOTHYROXINE SODIUM 0.05 MG TABLET PO SCH (10:13)
[2020-01-30] MEDS: MELOXICAM 7.5 MG TABLET PO SCH ×2 (10:14→18:48)
[2020-01-30] MEDS: ACETAMINOPHEN 325 MG TABLET PO PRN (14:54)
--- NOTE | 2020-01-30 17:48 | ER Document Report ---
Doctor's Note Notes: 01/30/20 17:48 Patient has been seen and evaluated. Patient is in no acute distress. Vital signs are stable. No tenderness to the abdomen. Patient was given Colace yesterday. Awaiting social work to find outpatient placement.
[2020-01-31] MEDS: METFORMIN HCL 500 MG TABLET PO SCH ×3 (01:46→22:13)
[2020-01-31] MEDS: DIVALPROEX SODIUM 250 MG TABLET.DR PO SCH ×3 (01:46→22:13)
[2020-01-31] MEDS: MELOXICAM 7.5 MG TABLET PO SCH ×2 (08:33→18:25)
[2020-01-31] MEDS: LEVOTHYROXINE SODIUM 0.05 MG TABLET PO SCH (10:19)
--- NOTE | 2020-01-31 16:29 | ER Document Report ---
Doctor's Note Notes: 01/31/20 16:28 Patient reassessed just now. Patient is watching TV and has no complaints. Patient is eating normally today per nursing. Patient is talkative lucid and alert. Patient was able to ambulate approximately 80 feet today with a cam boot with physical therapy. Patient apparently is going to have placement in the next 24 to 48 hours per social work.
[2020-02-01] MEDS: LEVOTHYROXINE SODIUM 0.05 MG TABLET PO SCH (09:04)
[2020-02-01] MEDS: DIVALPROEX SODIUM 250 MG TABLET.DR PO SCH ×2 (09:04→23:32)
[2020-02-01] MEDS: METFORMIN HCL 500 MG TABLET PO SCH ×2 (09:05→23:32)
[2020-02-01] MEDS: MELOXICAM 7.5 MG TABLET PO SCH ×2 (09:05→19:17)
--- NOTE | 2020-02-01 18:23 | ER Document Report ---
Doctor's Note Notes: 02/01/20 18:22 Patient reexamined just now. She is sitting on the side of the bed stating that she is "bored". She has been eating normally today has had no significant concerns or problems. She is very conversant and "chatty". She supposedly will have a permanent placement ready after breakfast tomorrow. Patient was informed of this.
[2020-02-02] MEDS: MELOXICAM 7.5 MG TABLET PO SCH (09:46)
[2020-02-02] MEDS: DIVALPROEX SODIUM 250 MG TABLET.DR PO SCH (09:47)
[2020-02-02] MEDS: LEVOTHYROXINE SODIUM 0.05 MG TABLET PO SCH (09:47)
[2020-02-02] MEDS: METFORMIN HCL 500 MG TABLET PO SCH (09:47)
[2020-02-02 10:10] VITALS: BP 135/72
== END 2020-02-02 11:40 | disposition home health service (06) ==
LOC: ER 08:51
DX: S92.352G Displaced fracture of fifth metatarsal bone, left foot, subsequent encounter for fracture with delayed healing (principal); W19.XXXD Unspecified fall, subsequent encounter; Z91.81 History of falling; F17.200 Nicotine dependence, unspecified, uncomplicated; I25.10 Atherosclerotic heart disease of native coronary artery without angina pectoris; E11.9 Type 2 diabetes mellitus without complications; Z20.828 Contact with and (suspected) exposure to other viral communicable diseases
CPT/HCPCS: 99285; 36415; 82962; 85025; 87635; 80048; 80053; 81001; J3490 ×60; C9803